=== PATIENT | male | born 1955 | race Caucasian/White ===

== ENCOUNTER 2016-10-14 13:15 | Outpatient (CLI) | payer OTHER | END 2016-10-14 13:16 | disposition home or self-care (01) | DX: R73.01 Impaired fasting glucose (principal); I20.8 Other forms of angina pectoris; I10 Essential (primary) hypertension; I25.10 Atherosclerotic heart disease of native coronary artery without angina pectoris ==

== ENCOUNTER 2017-09-07 10:00 | Outpatient (CLI) | payer OTHER | END 2017-09-07 10:01 | disposition home or self-care (01) | LOC: LAB.R 10:00 | PROVIDERS: ATTEND Internal Medicine Gastroenterology | DX: K51.90 Ulcerative colitis, unspecified, without complications (principal) | CPT/HCPCS: 83993 ==

== ENCOUNTER 2017-09-14 07:10 | Outpatient (CLI) | payer OTHER ==
[2017-09-14 07:31] LABS: BILIRUBIN,URINE NEGATIVE (NEGATIVE); GLUCOSE, URINE (UA) NEGATIVE (NEGATIVE); KETONES,URINE (UA) NEGATIVE (NEGATIVE); LEUKOCYTE ESTERASE, URINE NEGATIVE (NEGATIVE); NITRITE,URINE NEGATIVE (NEGATIVE); OCCULT BLOOD,URINE NEGATIVE (NEGATIVE); PROTEIN,URINE NEGATIVE (NEGATIVE); UROBILINOGEN,URINE 0.2 (NORMAL) E.U./dL (NORMAL)
[2017-09-14 07:32] LABS: HGB - HEMOGLOBIN 15.2 g/dL (14.0-18.0); MEAN CORPUSCULAR HEMOGLOBIN 34.9 pg (27.0-31.0); MEAN CORPUSCULAR HGB CONC 34.8 g/dL (32.0-36.0); MEAN CORPUSCULAR VOLUME 100.5 fL (80.0-94.0); MEAN PLATELET VOLUME 7.5 fL (7.4-11.4); RED BLOOD COUNT 4.34 10^6/uL (4.70-6.10); RED CELL DISTRIBUTION WIDTH 13.6 % (12.0-15.0); WHITE BLOOD COUNT 8.2 x10^3/uL (4.8-10.8)
[2017-09-14 07:34] LABS: CLARITY,URINE CLEAR (CLEAR)
[2017-09-14 08:05] LABS: ALBUMIN 4.8 g/dL (3.2-5.5); ALBUMIN/GLOBULIN RATIO 1.3 (1.0-2.2); ALKALINE PHOSPHATASE 91 IU/L (42-121); ALT ALANINE AMINOTRANSFERASE 26 IU/L (10-60); AST ASPARTATE AMINOTRANSFERASE 24 IU/L (10-42); BILIRUBIN,TOTAL 1.1 mg/dL (0.2-1.0); BUN - BLOOD UREA NITROGEN 19 mg/dL (6-20); CALCIUM 9.1 mg/dL (8.5-10.3); CARBON DIOXIDE - CO2 25 mmol/L (21-32); CHLORIDE 103 mmol/L (101-111); CHOL/HDL RATIO 2.5 (<5.0); CHOLESTEROL 145 mg/dL; CREATININE 0.9 mg/dL (0.6-1.2); GFR - MDRD 86 (>89); GLUCOSE 111 mg/dL (70-100); HDL CHOLESTEROL 58 mg/dL; LDL CHOLESTEROL,CALCULATED 72 mg/dL; LDL/HDL RATIO 1.2 (<3.6); SODIUM 136 mmol/L (135-145); TOTAL PROTEIN 8.4 g/dL (6.7-8.2); VLDL CHOLESTEROL 15 mg/dL
== END 2017-09-14 07:11 | disposition home or self-care (01) ==
LOC: LAB 07:10
PROVIDERS: ATTEND Internal Medicine
DX: E78.5 Hyperlipidemia, unspecified (principal); I10 Essential (primary) hypertension; Z12.5 Encounter for screening for malignant neoplasm of prostate; Z79.899 Other long term (current) drug therapy
CPT/HCPCS: 36415; 80053; 80061; 81003; 83721; 84153; 84443

== ENCOUNTER 2018-01-08 08:00 | Outpatient (CLI) | payer OTHER | END 2018-01-08 08:01 | disposition home or self-care (01) | LOC: LAB.R 08:00 | PROVIDERS: ATTEND Internal Medicine Gastroenterology | DX: K51.90 Ulcerative colitis, unspecified, without complications (principal) | CPT/HCPCS: 83993 ==

== ENCOUNTER 2018-03-25 19:28 | Outpatient (CLI) | payer OTHER ==
--- NOTE | 2018-03-25 21:37 | Ultrasound Report ---
Reason: THYROID CYST Procedure Date: 03/25/2018 Accession Number: [id number] / [id number] Procedure: US - Head or Neck Soft Tissue CPT Code: FULL RESULT: EXAM: THYROID ULTRASOUND EXAM DATE: 03/25/2018 07:32 PM. CLINICAL HISTORY: THYROID CYST. COMPARISON: None. TECHNIQUE: Real time sonographic imaging of the thyroid was performed by the molding machine operator helper. Multiple pharmacy sales representative static images were saved for review. FINDINGS: THYROID GLAND: Right Lobe: 5.3 x 1.5 x 1.6 cm, volume 6.5 cc. Normal background echotexture. Right Lobe Nodules: 1. Mid to upper pole smoothly marginated heterogeneous hypoechoic nodule 1.4 x 0.8 x 1.3 cm. Wider than tall. No microcalcification. Left Lobe: 5.5 x 0.9 x 1.8 cm, volume 4.4 cc. Normal background echotexture. Left Lobe Nodules: 1. Lower pole hypoechoic smoothly marginated nodule 0.6 x 0.4 x 0.6 cm. Wider than tall. No microcalcification. Isthmus: 0.2 cm AP. Isthmic Nodules: None. LYMPH NODES: No adenopathy demonstrated in the central or lateral compartment. OTHER: None. IMPRESSION: 1. 1.4 cm hypoechoic right lobe thyroid nodule. Consideration of ultrasound-guided FNA recommended. 2. Subcentimeter hypoechoic nodule in the left lobe. Ultrasound follow-up recommended in 6-24 months to assess stability. 3. Overall thyroid size is normal. No adenopathy. No additional mass. Management recommendations are based on 2015 [place] [employer] Management Guidelines for Adult Patients with Thyroid Nodules and Differentiated Thyroid Cancer. RADIA
== END 2018-03-25 19:29 | disposition home or self-care (01) ==
LOC: DI 19:28
PROVIDERS: ATTEND Internal Medicine
DX: E04.2 Nontoxic multinodular goiter (principal)
CPT/HCPCS: 76536

== ENCOUNTER 2019-08-07 08:00 | Outpatient (CLI) | payer BC, OTHER | END 2019-08-07 23:59 | disposition home or self-care (01) | LOC: LAB.R 08:00 | PROVIDERS: ATTEND Internal Medicine Gastroenterology | DX: K51.90 Ulcerative colitis, unspecified, without complications (principal) | CPT/HCPCS: 83993 ==

== ENCOUNTER 2019-09-11 21:32 | Outpatient (CLI) | payer BC ==
[2019-09-11 22:02] LABS: BASOPHILS % (AUTO) 0.3 %; EOSINOPHILS % (AUTO) 0.3 %; HGB - HEMOGLOBIN 15.8 g/dL (14.0-18.0); LYMPHOCYTES # (AUTO) 1.2 10^3/uL (1.5-3.5); LYMPHOCYTES % (AUTO) 10.4 %; MEAN CORPUSCULAR HEMOGLOBIN 36.9 pg (27.0-31.0); MEAN CORPUSCULAR HGB CONC 35.3 g/dL (32.0-36.0); MEAN CORPUSCULAR VOLUME 104.7 fL (80.0-94.0); MEAN PLATELET VOLUME 8.7 fL (7.4-11.4); MONOCYTES % (AUTO) 7.9 %; NEUTROPHILS # (AUTO) 9.6 10^3/uL (1.5-6.6); NEUTROPHILS % (AUTO) 80.3 %; PLT - PLATELET COUNT 262 10^3/uL (130-450); RED BLOOD COUNT 4.28 10^6/uL (4.70-6.10); RED CELL DISTRIBUTION WIDTH 12.9 % (12.0-15.0)
[2019-09-11 22:03] LABS: ALBUMIN 3.9 g/dL (3.2-5.5); ALBUMIN/GLOBULIN RATIO 1.2 (1.0-2.2); BILIRUBIN,TOTAL 1.5 mg/dL (0.2-1.0); CALCIUM 8.8 mg/dL (8.5-10.3); TOTAL PROTEIN 7.2 g/dL (6.7-8.2)
== END 2019-09-11 21:33 | disposition home or self-care (01) ==
LOC: LAB 21:32
PROVIDERS: ATTEND Internal Medicine Gastroenterology
DX: K51.90 Ulcerative colitis, unspecified, without complications (principal)
CPT/HCPCS: 36415; 80053; 81335; 81599; 85025

== ENCOUNTER 2019-12-23 12:25 | Outpatient (CLI) | payer BC | END 2019-12-23 12:26 | disposition short-term general hospital (02) | LOC: EMS 12:25 | PROVIDERS: ATTEND Surgery | DX: R07.89 Other chest pain (principal) | CPT/HCPCS: A0425; A0426 ==

== ENCOUNTER 2020-03-04 18:48 | Emergency (ER) | payer BC ==
--- NOTE | 2020-03-04 19:28 | ED Physician Documentation ---
History of Present Illness - Stated complaint Stated Complaint: MALE - Chief complaint Chief Complaint: Abd Pain - History obtained from History obtained from: Patient - Additonal information Additional information: 65 Y/O M with a hx of ulcerative colitis on chronic budesonide recently taking off presents with abd pain, vomiting, nausea and loose stools, denies fevers, no hx of abd surgery. Prior DE with stent placement. denies fevers. also taking entyvio. Review of Systems Constitutional: reports: Reviewed and negative Eyes: reports: Reviewed and negative Ears: reports: Reviewed and negative Nose: reports: Reviewed and negative Throat: reports: Reviewed and negative Cardiac: reports: Reviewed and negative Respiratory: reports: Reviewed and negative GI: reports: Abdominal Pain, Nausea, Vomiting, Diarrhea : reports: Reviewed and negative Skin: reports: Reviewed and negative Musculoskeletal: reports: Reviewed and negative Neurologic: reports: Reviewed and negative Psychiatric: reports: Reviewed and negative Endocrine: reports: Reviewed and negative Immunocompromised: reports: Reviewed and negative PD PAST MEDICAL HISTORY - Past Medical History Past Medical History: Yes Cardiovascular: Hypertension, High cholesterol, Coronary artery disease, [place] Respiratory: None Neuro: Head injury Endocrine/Autoimmune: None GI: Ulcerative colitis : Benign prostate hypertrophy HEENT: None Psych: None Musculoskeletal: None Derm: None - Past Surgical History Past Surgical History: Yes Cardiovascular: Coronary stent - Present Medications Home Medications: Ambulatory Orders Medication Instructions Recorded Confirmed Amox/Clav 875/125 [Augmentin] 1 each PO Q12H 10 Days #20 tablet 03/04/20 Ondansetron Odt [Zofran Odt] 4 mg TL Q6H PRN #10 tablet 03/04/20 - Allergies Allergies/Adverse Reactions: Allergies Allergy/AdvReac Type Severity Reaction Status Date / Time No Known Drug Allergies Allergy Verified 03/04/20 19:09 - Social History Does the pt smoke?: No Smoking Status: Never smoker Does the pt drink ETOH?: Yes Does the pt have substance abuse?: No - Immunizations Immunizations are current?: Yes - POLST Patient has POLST: No PD ED PE NORMAL - Vitals Vital signs reviewed: Yes - General General: Alert and oriented X 3, No acute distress, Well developed/nourished - HEENT HEENT: Atraumatic, PERRL, Moist mucous membranes, Pharynx benign - Neck Neck: Supple, no meningeal sign, No adenopathy - Cardiac Cardiac: RRR, No murmur, Strong equal pulses - Respiratory Respiratory: No respiratory distress, Clear bilaterally - Abdomen Abdomen: Normal bowel sounds, Soft, No organomegaly, Other (diffusely tender. no midline abd pulsatile mass.) - Male Male : Deferred - Rectal Rectal: Deferred - Back Back: No spinal TTP - Derm Derm: Normal color, Warm and dry, No rash - Extremities Extremities: No deformity - Neuro Neuro: Alert and oriented X 3, optical lathe operator 2-12 intact, No motor deficit, No sensory deficit, Normal speech - Psych Psych: Normal mood, Normal affect Results - Vitals Vitals: Vital Signs - 24 hr 03/04/20 03/04/20 03/04/20 18:50 19:55 20:00 Temperature 36.6 C Heart Rate 54 L 73 Respiratory 16 25 H 17 Rate Blood Pressure 102/64 119/87 H O2 Saturation 96 95 03/04/20 03/04/20 20:30 20:38 Temperature Heart Rate 71 69 Respiratory 17 16 Rate Blood Pressure 128/90 H O2 Saturation 98 95 Oxygen O2 Source Room air - Labs Labs: Laboratory Tests 03/04/20 03/04/20 03/04/20 19:30 19:30 19:30 WBC 5.8 RBC 4.23 L Hgb 15.5 Hct 43.1 MCV 101.9 H MCH 36.6 H MCHC 36.0 RDW 13.0 Plt Count 222 MPV 9.0 Neut # (Auto) 3.9 Lymph # (Auto) 1.1 L [place] # (Auto) 0.6 Eos # (Auto) 0.2 Baso # (Auto) 0.0 Absolute Nucleated RBC 0.00 Nucleated RBC % 0.0 PT INR APTT Sodium 135 Potassium 3.7 Chloride 101 Carbon Dioxide 24 Anion Gap 10.0 BUN 8 Creatinine 1.1 Estimated GFR (MDRD) 68 L Glucose 115 H Lactic Acid Calcium 9.5 Magnesium 1.7 Total Bilirubin 1.5 H AST 75 H ALT 72 H Alkaline Phosphatase 139 H Total Creatine Kinase 50 Troponin I High Sens 6.4 Total Protein 7.3 Albumin 3.9 Globulin 3.4 Albumin/Globulin Ratio 1.1 Lipase 40 Urine Color Urine Clarity Urine pH Ur Specific [place] Urine Protein Urine Glucose (UA) Urine Ketones Urine Occult Blood Urine Nitrite Urine Bilirubin Urine Urobilinogen Ur Leukocyte Esterase Ur Microscopic Review Urine Culture Comments 03/04/20 03/04/20 03/04/20 19:45 19:54 21:10 WBC RBC Hgb Hct MCV MCH MCHC RDW Plt Count MPV Neut # (Auto) Lymph # (Auto) [place] # (Auto) Eos # (Auto) Baso # (Auto) Absolute Nucleated RBC Nucleated RBC % PT 12.5 INR 1.1 APTT 27.3 Sodium Potassium Chloride Carbon Dioxide Anion Gap BUN Creatinine Estimated GFR (MDRD) Glucose Lactic Acid 0.9 Calcium Magnesium Total Bilirubin AST ALT Alkaline Phosphatase Total Creatine Kinase Troponin I High Sens Total Protein Albumin Globulin Albumin/Globulin Ratio Lipase Urine Color YELLOW Urine Clarity CLEAR Urine pH 6.0 Ur Specific [place] <=1.005 Urine Protein NEGATIVE Urine Glucose (UA) NEGATIVE Urine Ketones NEGATIVE Urine Occult Blood NEGATIVE Urine Nitrite NEGATIVE Urine Bilirubin NEGATIVE Urine Urobilinogen 0.2 (NORMAL) Ur Leukocyte Esterase NEGATIVE Ur Microscopic Review NOT INDICATED Urine Culture Comments NOT INDICATED PD MEDICAL DECISION MAKING - ED course Complexity details: reviewed results, re-evaluated patient, considered differential (diverticulitis, ulcerative colitis flare, dehydration. ), d/w patient, d/w family Departure - Departure Disposition: 01 Home, Self Care Clinical Impression: Diverticulitis Ulcerative colitis Qualifiers: Ulcerative colitis location: unspecified ulcerative colitis location Digestive disease complication type: unspecified complication Qualified Code(s): K51.919 - Ulcerative colitis, unspecified with unspecified complications Condition: Stable Instructions: ED Diverticulitis Follow-Up: Terri Olivas MD [Primary Care Provider] - Tomorrow Prescriptions: Amox/Clav 875/125 [Augmentin] 1 each PO Q12H 10 Days #20 tablet Ondansetron Odt [Zofran Odt] 4 mg TL Q6H PRN #10 tablet PRN Reason: Nausea / Vomiting Comments: Take antibiotics as directed. Please call your primary care provider tomorrow to schedule follow-up. Please return for worsening pain fevers or any concerns.
[2020-03-04] MEDS ORDERED: ONDANSETRON 4 MG/2 ML VIAL IVP STA (19:39)
[2020-03-04] MEDS ORDERED: SODIUM CHLORIDE 0.9% 1,000 ML IV STA (19:39)
[2020-03-04 19:49] LABS: BASOPHILS % (AUTO) 0.7 %; EOSINOPHILS # (AUTO) 0.2 10^3/uL (0.0-0.7); EOSINOPHILS % (AUTO) 2.6 %; HGB - HEMOGLOBIN 15.5 g/dL (14.0-18.0); LYMPHOCYTES # (AUTO) 1.1 10^3/uL (1.5-3.5); LYMPHOCYTES % (AUTO) 18.3 %; MEAN CORPUSCULAR HEMOGLOBIN 36.6 pg (27.0-31.0); MEAN CORPUSCULAR VOLUME 101.9 fL (80.0-94.0); MONOCYTES # (AUTO) 0.6 10^3/uL (0.0-1.0); MONOCYTES % (AUTO) 10.7 %; NEUTROPHILS # (AUTO) 3.9 10^3/uL (1.5-6.6); NEUTROPHILS % (AUTO) 67.5 %; PLT - PLATELET COUNT 222 10^3/uL (130-450); RED BLOOD COUNT 4.23 10^6/uL (4.70-6.10); WHITE BLOOD COUNT 5.8 x10^3/uL (4.8-10.8)
[2020-03-04 20:02] LABS: ALBUMIN 3.9 g/dL (3.2-5.5); ALBUMIN/GLOBULIN RATIO 1.1 (1.0-2.2); BILIRUBIN,TOTAL 1.5 mg/dL (0.2-1.0); CALCIUM 9.5 mg/dL (8.5-10.3); CREATININE 1.1 mg/dL (0.6-1.2); MAGNESIUM 1.7 mg/dL (1.7-2.8); TOTAL PROTEIN 7.3 g/dL (6.7-8.2)
[2020-03-04 20:03] LABS: INR 1.1 (0.8-1.2); PT - PROTHROMBIN TIME 12.5 secs (9.9-12.6)
[2020-03-04 20:11] LABS: PARTIAL THROMBOPLASTIN TIME 27.3 secs (24.9-33.3)
[2020-03-04] MEDS ORDERED: IOVERSOL 320 100 ML VIAL IVP ONE ×2 (20:15→20:31)
[2020-03-04 21:29] LABS: BILIRUBIN,URINE NEGATIVE (NEGATIVE); GLUCOSE, URINE (UA) NEGATIVE (NEGATIVE); KETONES,URINE (UA) NEGATIVE (NEGATIVE); LEUKOCYTE ESTERASE, URINE NEGATIVE (NEGATIVE); NITRITE,URINE NEGATIVE (NEGATIVE); OCCULT BLOOD,URINE NEGATIVE (NEGATIVE); PROTEIN,URINE NEGATIVE (NEGATIVE); UROBILINOGEN,URINE 0.2 (NORMAL) E.U./dL (NORMAL)
[2020-03-04 21:30] LABS: CLARITY,URINE CLEAR (CLEAR)
--- NOTE | 2020-03-04 21:42 | CT Report ---
PROCEDURE: Abdomen/Pelvis W INDICATIONS: abd pain CONTRAST: IV CONTRAST: Optiray 320 ml: 100 PO CONTRAST: *NO PO CONTRAST TECHNIQUE: After the administration of 100 cc Optiray 320 IV contrast, 5 mm thick sections acquired from the di aphragms to the symphysis. 5 mm thick coronal and sagittal reformats were acquired. For radiation d ose reduction, the following was used: automated exposure control, adjustment of mA and/or kV accord ing to patient size. COMPARISON: None. FINDINGS: Image quality: Excellent. ABDOMEN: Lung bases: Lung bases are clear. Heart size is normal. Solid organs: Liver and spleen are normal in size and enhancement. Gallbladder is within normal singleton its. Biliary system is non dilated. Pancreas enhances normally. No adrenal nodules. Kidneys demon strate normal size and enhancement, without hydronephrosis. Peritoneum and bowel: Stomach and small bowel loops demonstrate normal wall thickness and caliber. N ormal appendix is present. Numerous descending and sigmoid colon diverticula. Subtle pericolonic infl ammatory changes in the left lower quadrant surrounding proximal sigmoid colon. No extraluminal gas. No free fluid or air. Nodes and vessels: No retroperitoneal or mesenteric adenopathy by size criteria. Aorta and inferior vena cava are normal in size. Miscellaneous: No ventral hernias. PELVIS: Genitourinary: Bladder wall thickness is normal. Mild prostatomegaly. Miscellaneous: Small fat-containing left inguinal hernia. Bones: No suspicious bony lesions. No vertebral body compression fractures. Degenerative facet salvatore nges in the lumbar spine. IMPRESSION: 1. Descending and sigmoid diverticulosis with mild acute diverticulitis of the proximal sigmoid. 2. No evidence of abscess or perforation. 3. Fat-containing left inguinal hernia. Reviewed by: Cathie العراقي MD on 03/04/2020 9:41 PM PDT Approved by: Cathie العراقي MD on 03/04/2020 9:41 PM PDT Station ID: [id number]
[2020-03-04] MEDS ORDERED: AMOX/CLAV 875 MG/125 MG TABLET PO STA (22:03)
[2020-03-04 22:14] VITALS: BP 113/78
== END 2020-03-04 22:20 | disposition home or self-care (01) ==
LOC: ED 18:48
DX: K57.32 Diverticulitis of large intestine without perforation or abscess without bleeding (principal); K51.919 Ulcerative colitis, unspecified with unspecified complications; K40.90 Unilateral inguinal hernia, without obstruction or gangrene, not specified as recurrent; I10 Essential (primary) hypertension; I25.10 Atherosclerotic heart disease of native coronary artery without angina pectoris; I25.2 Old myocardial infarction; Z95.5 Presence of coronary angioplasty implant and graft
CPT/HCPCS: 36415; 74177; 80053; 81003; 82550; 83605; 83690; 83735; 84484; 85025; 85610; 85730; 93005; 96361; 96374; 99283; 99284; A9270; Q9967; 81001; 87086

== ENCOUNTER 2020-03-16 18:42 | Inpatient (IN) | payer BC ==
[2020-03-16 19:17] LABS: BASOPHILS # (AUTO) 0.1 10^3/uL (0.0-0.1); BASOPHILS % (AUTO) 0.7 %; EOSINOPHILS # (AUTO) 0.1 10^3/uL (0.0-0.7); EOSINOPHILS % (AUTO) 0.7 %; HGB - HEMOGLOBIN 14.5 g/dL (14.0-18.0); LYMPHOCYTES # (AUTO) 1.5 10^3/uL (1.5-3.5); LYMPHOCYTES % (AUTO) 11.4 %; MEAN CORPUSCULAR HEMOGLOBIN 36.6 pg (27.0-31.0); MEAN CORPUSCULAR HGB CONC 34.9 g/dL (32.0-36.0); MEAN CORPUSCULAR VOLUME 105.1 fL (80.0-94.0); MEAN PLATELET VOLUME 8.9 fL (7.4-11.4); MONOCYTES # (AUTO) 1.4 10^3/uL (0.0-1.0); MONOCYTES % (AUTO) 10.3 %; NEUTROPHILS # (AUTO) 10.3 10^3/uL (1.5-6.6); NEUTROPHILS % (AUTO) 76.4 %; PLT - PLATELET COUNT 419 10^3/uL (130-450); RED BLOOD COUNT 3.96 10^6/uL (4.70-6.10); RED CELL DISTRIBUTION WIDTH 12.8 % (12.0-15.0); WHITE BLOOD COUNT 13.4 x10^3/uL (4.8-10.8)
[2020-03-16 19:20] LABS: BILIRUBIN,URINE NEGATIVE (NEGATIVE); GLUCOSE, URINE (UA) NEGATIVE (NEGATIVE); KETONES,URINE (UA) NEGATIVE (NEGATIVE); LEUKOCYTE ESTERASE, URINE NEGATIVE (NEGATIVE); NITRITE,URINE NEGATIVE (NEGATIVE); OCCULT BLOOD,URINE NEGATIVE (NEGATIVE); PH,URINE 5.5 PH (5.0-7.5); PROTEIN,URINE NEGATIVE (NEGATIVE); UROBILINOGEN,URINE 0.2 (NORMAL) E.U./dL (NORMAL)
[2020-03-16 19:20] LABS: ALBUMIN 3.6 g/dL (3.2-5.5); ALBUMIN/GLOBULIN RATIO 1.1 (1.0-2.2); BILIRUBIN,TOTAL 0.9 mg/dL (0.2-1.0); CALCIUM 9.1 mg/dL (8.5-10.3); CREATININE 0.8 mg/dL (0.6-1.2)
[2020-03-16 19:22] LABS: CLARITY,URINE CLEAR (CLEAR)
--- NOTE | 2020-03-16 19:25 | ED Physician Documentation ---
History of Present Illness - Stated complaint Stated Complaint: ABD PX/N/V - Chief complaint Chief Complaint: Abd Pain - History obtained from History obtained from: Patient (the patient is a 65) - Additonal information Additional information: The patient is a 65 Y/O M with a hx of ulcerative colitis and diverticulitis, recently completed augmentin for acute diverticulitis, having continued pain, no fevers, vomiting and loose stools daily. was seen by his pcp today and sent in for evaluation. denies any bloody diarrhea or any hx of c diff. Review of Systems Constitutional: reports: Reviewed and negative Eyes: reports: Reviewed and negative Ears: reports: Reviewed and negative Nose: reports: Reviewed and negative Throat: reports: Reviewed and negative Cardiac: reports: Reviewed and negative Respiratory: reports: Reviewed and negative GI: reports: Abdominal Pain, Nausea, Vomiting, Diarrhea : reports: Reviewed and negative Skin: reports: Reviewed and negative Musculoskeletal: reports: Reviewed and negative Neurologic: reports: Reviewed and negative Psychiatric: reports: Reviewed and negative Endocrine: reports: Reviewed and negative Immunocompromised: reports: Reviewed and negative PD PAST MEDICAL HISTORY - Past Medical History Past Medical History: Yes Cardiovascular: Hypertension, High cholesterol, Coronary artery disease, [place] Respiratory: None Neuro: Head injury Endocrine/Autoimmune: None GI: Diverticulitis, Ulcerative colitis : Benign prostate hypertrophy HEENT: None Psych: None Musculoskeletal: None Derm: None - Past Surgical History Past Surgical History: Yes Cardiovascular: Coronary stent - Present Medications Home Medications: Ambulatory Orders Medication Instructions Recorded Confirmed Amox/Clav 875/125 [Augmentin] 1 each PO Q12H 10 Days #20 tablet 03/04/20 Ondansetron Odt [Zofran Odt] 4 mg TL Q6H PRN #10 tablet 03/04/20 - Allergies Allergies/Adverse Reactions: Allergies Allergy/AdvReac Type Severity Reaction Status Date / Time No Known Drug Allergies Allergy Verified 03/16/20 18:48 - Social History Does the pt smoke?: No Smoking Status: Never smoker Does the pt drink ETOH?: Yes Does the pt have substance abuse?: No - Immunizations Immunizations are current?: Yes - POLST Patient has POLST: No PD ED PE NORMAL - Vitals Vital signs reviewed: Yes - General General: Alert and oriented X 3, No acute distress, Well developed/nourished - HEENT HEENT: Atraumatic, PERRL - Neck Neck: Supple, no meningeal sign - Cardiac Cardiac: RRR, No murmur, Strong equal pulses - Respiratory Respiratory: No respiratory distress, Clear bilaterally - Abdomen Abdomen: Normal bowel sounds, Soft, Other (No midline abdominal pulsatile mass. Diffuse tenderness in the suprapubic region. Hyperactive bowel sounds.) - Derm Derm: Warm and dry - Extremities Extremities: No deformity - Neuro Neuro: Alert and oriented X 3 - Psych Psych: Normal mood, Normal affect Results - Vitals Vitals: Vital Signs - 24 hr 03/16/20 03/16/20 18:48 19:32 Temperature 36.8 C Heart Rate 72 70 Respiratory 16 16 Rate Blood Pressure 125/78 124/77 O2 Saturation 98 100 Oxygen O2 Source Room air - Labs Labs: Laboratory Tests 03/16/20 03/16/20 03/16/20 18:55 19:00 19:00 WBC 13.4 H RBC 3.96 L Hgb 14.5 Hct 41.6 L MCV 105.1 H MCH 36.6 H MCHC 34.9 RDW 12.8 Plt Count 419 MPV 8.9 Neut # (Auto) 10.3 H Lymph # (Auto) 1.5 [place] # (Auto) 1.4 H Eos # (Auto) 0.1 Baso # (Auto) 0.1 Absolute Nucleated RBC 0.00 Nucleated RBC % 0.0 Sodium 135 Potassium 4.0 Chloride 102 Carbon Dioxide 23 Anion Gap 10.0 BUN 7 Creatinine 0.8 Estimated GFR (MDRD) 98 Glucose 112 H Lactic Acid Calcium 9.1 Total Bilirubin 0.9 AST 38 ALT 33 Alkaline Phosphatase 156 H Total Protein 7.0 Albumin 3.6 Globulin 3.4 Albumin/Globulin Ratio 1.1 Lipase 36 Urine Color YELLOW Urine Clarity CLEAR Urine pH 5.5 Ur Specific [place] 1.025 Urine Protein NEGATIVE Urine Glucose (UA) NEGATIVE Urine Ketones NEGATIVE Urine Occult Blood NEGATIVE Urine Nitrite NEGATIVE Urine Bilirubin NEGATIVE Urine Urobilinogen 0.2 (NORMAL) Ur Leukocyte Esterase NEGATIVE Ur Microscopic Review NOT INDICATED Urine Culture Comments NOT INDICATED 03/16/20 19:18 WBC RBC Hgb Hct MCV MCH MCHC RDW Plt Count MPV Neut # (Auto) Lymph # (Auto) [place] # (Auto) Eos # (Auto) Baso # (Auto) Absolute Nucleated RBC Nucleated RBC % Sodium Potassium Chloride Carbon Dioxide Anion Gap BUN Creatinine Estimated GFR (MDRD) Glucose Lactic Acid 1.1 Calcium Total Bilirubin AST ALT Alkaline Phosphatase Total Protein Albumin Globulin Albumin/Globulin Ratio Lipase Urine Color Urine Clarity Urine pH Ur Specific [place] Urine Protein Urine Glucose (UA) Urine Ketones Urine Occult Blood Urine Nitrite Urine Bilirubin Urine Urobilinogen Ur Leukocyte Esterase Ur Microscopic Review Urine Culture Comments PD MEDICAL DECISION MAKING - ED course Complexity details: reviewed old records, reviewed results, re-evaluated patient, considered differential (Diverticulitis, abscess, perforation), d/w patient, d/w science consultant, other (diverticulitis) ED course: History is concerning for diverticulitis possible perforation and possible abscess.CT scan shows worsening diverticulitis patient's failed outpatient treatment with Augmentin he did receive IV Rocephin and IV Flagyl in the emergency department hospitalist was consulted for admission patient will be admitted for IV antibiotics and observation. - Consults Consults: Discussed case with (dr. ross. will accept.) Departure - Departure Disposition: ED Place in Observation Clinical Impression: Diverticulitis of gastrointestinal tract, Diverticulitis Condition: Stable Discharge Date/Time: 03/16/20 21:36
[2020-03-16] MEDS ORDERED: SODIUM CHLORIDE 0.9% 1,000 ML IV STA (19:30)
[2020-03-16] MEDS ORDERED: ONDANSETRON 4 MG/2 ML VIAL IVP STA (19:30)
[2020-03-16] MEDS ORDERED: MORPHINE 2 MG/ML CARPUJECT IVP STA (19:30)
[2020-03-16] MEDS ORDERED: cefTRIAXone 1 GM in SODIUM CHLORIDE 0.9% MINIBAG 100 ML IV STA (19:32)
[2020-03-16] MEDS ORDERED: metroNIDAZOLE 500 MG/100 ML 500 MG/100 ML BAG IV ONE (19:33)
[2020-03-16] MEDS ORDERED: IOVERSOL 320 100 ML VIAL IVP ONE ×2 (19:43→19:59)
--- NOTE | 2020-03-16 20:12 | CT Report ---
PROCEDURE: Abdomen/Pelvis W INDICATIONS: abd pain, diverticulitis, uc CONTRAST: IV CONTRAST: Optiray 320 ml: 100 PO CONTRAST: *NO PO CONTRAST TECHNIQUE: After the administration of intravenous contrast, 5 mm thick sections acquired from the diaphragms to the symphysis. 5 mm thick coronal and sagittal reformats were acquired. For radiation dose reducti on, the following was used: automated exposure control, adjustment of mA and/or kV according to beth ent size. COMPARISON: CT abdomen pelvis 03/04/2020 FINDINGS: Image quality: Excellent. ABDOMEN: Lung bases: Lung bases are clear. Heart size is normal. Solid organs: Liver is nearly prominent with steatosis. The spleen is normal in size and enhancement . Gallbladder is unremarkable Biliary system is non dilated. Pancreas enhances normally. No adren al nodules. Kidneys demonstrate normal size and enhancement, without hydronephrosis. Peritoneum and bowel: Bowel loops are nonobstructive. There is a thickened appearance of the distal descending colon extending to the sigmoid with areas of intimal surrounding inflammatory change. This appears minimally more prominent when compared to prior exam. No abscess. No free fluid or free air. In addition, in the interval since the prior exam, there is a thickened appearance of more proximal portions of the descending colon extending to the transverse and ascending colon. Minimal stranding i s noted surrounding the ascending and transverse colon most proximally in the cecal region. This is n ew compared to prior exam. Nodes and vessels: No retroperitoneal or mesenteric adenopathy by size criteria. Aorta and inferior vena cava are normal in size. Miscellaneous: No ventral hernias. PELVIS: Genitourinary: Bladder wall thickness is normal. Miscellaneous: No inguinal hernias or adenopathy. Bones: No suspicious bony lesions. No vertebral body compression fractures. IMPRESSION: 1. Persistent distal descending and sigmoid colitis secondary to diverticulitis, appearing slightly w orse compared to prior exam. No diverticular abscess. No free fluid or free air. 2. In addition, there has been interval thickening with minimal surrounding inflammatory change withi n portions of the remaining left, transverse and right colon with particular pericolonic stranding id entified in the right colon. Overall appearance is suggestive of progressive colitis. Reviewed by: Roxann Sousa MD on 03/16/2020 8:11 PM PDT Approved by: Roxann Sousa MD on 03/16/2020 8:11 PM PDT Station ID: [id number]
[2020-03-16] MEDS ORDERED: cefTRIAXone 1 GM VIAL ONE (20:26)
--- NOTE | 2020-03-16 20:55 | HISTORY & PHYSICAL EXAMINATION ---
Chief Complaint - Chief Complaint Chief Complaint: worsening abdominal pain History of Present Illness - Admitted From Admitted From:: [facility] ED - History Obtained From Records Reviewed: Yes History obtained from: Patient - History of Present Illness HPI Comment/Other: Patient is a 65-year-old male with history of ulcerative colitis who is currently on Antyvia. He presented to the ED today with worsening abdominal pain, nausea vomiting and diarrhea. He was diagnosed with diverticulitis 10 days ago and placed on Augmentin which he has taken to completion. However with worsening symptoms today he called his primary care physician and was advised to come to the emergency room. He has been experiencing 3-4 episodes of diarrhea daily and has been vomiting on average 2 times daily. He denied chest pain dyspnea, fever or chills. He has some dyspnea on exertion. In the ED work-up included a CT of the abdomen pelvis which showed worsening diverticulitis. He also had a WBC of 13.5. As a result he was presented for admission for further treatment. History - Past Medical History Cardiovascular: reports: Hypertension, High cholesterol, Coronary artery disease, [place] Respiratory: reports: None Neuro: reports: Head injury Endocrine/Autoimmune: reports: None GI: reports: Diverticulitis, Ulcerative colitis : reports: Benign prostate hypertrophy HEENT: reports: None Psych: reports: None Musculoskeletal: reports: None Derm: reports: None MRSA Hx?: No - Past Surgical History Cardiovascular: reports: Coronary stent - Family & Social History Family History: Father: [place] ( at age 63) Living arrangement: At home Social History Notes: The patient does not use tobacco products. He drinks alcohol occasionally. No illicit drug use. 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. - POLST Patient has POLST: No POLST Status: Full Code Meds/Allgy - Home Medications Home Medications: Ambulatory Orders Medication Instructions Recorded Confirmed Amox/Clav 875/125 [Augmentin] 1 each PO Q12H 10 Days #20 tablet 03/04/20 Ondansetron Odt [Zofran Odt] 4 mg TL Q6H PRN #10 tablet 03/04/20 - Allergies Allergies/Adverse Reactions: Allergies Allergy/AdvReac Type Severity Reaction Status Date / Time No Known Drug Allergies Allergy Verified 03/16/20 18:48 Review of Systems - Constitutional Constitutional: denies: Fatigue, Fever, Chills - Eyes Eyes: denies: Pain - Ears, Nose & Throat Ears, Nose & Throat: denies: Ear pain - Cardiovascular Cariovascular: denies: Irregular heart rate, Palpitations, Chest pain, Edema - Gastrointestinal Gastrointestinal: reports: Abdominal pain, Diarrhea, Nausea, Vomiting. denies: Abdominal distention - Genitourinary Genitourinary: denies: Dysuria, Frequency, Urgency, Hematuria - Musculoskeletal Musculoskeletal: denies: Muscle pain, Back pain, Muscle aches, Stiffness - Integumentary Integumentary: denies: Rash, Pruritis, Lesions - Neurological Neurological: denies: General weakness, Focal weakness, Headache, Dizziness - Psychiatric Psychiatric: denies: Depression, Anxiety - Endocrine Endocrine: denies: Polyuria, Polydypsia - Hematologic/Lymphatic Hematologic/Lymphatic: denies: Anemia, Bruising, Petechiae Prior Level of Functionality: Patient is independent of activities of daily living Exam - Vital Signs Vital Signs: Vital Signs x48h Temp Pulse Resp BP Pulse Ox 03/16/20 19:32 70 16 124/77 100 03/16/20 18:48 36.8 C 72 16 125/78 98 - Physical Exam General Appearance: positive: Alert, Mild distress, Moderate distress Eyes Bilateral: positive: PERRL, EOMI ENT: positive: No signs of dehydration Neck: positive: No JVD, Trachea midline Respiratory: positive: Chest non-tender, No respiratory distress, Breath sounds nml. negative: Wheezes, Rales, Rhonchi Cardiovascular: positive: Regular rate & rhythm, No murmur Abdomen: positive: Non-tender, Nml bowel sounds, No distention. negative: Guarding, Rebound Back: positive: Nml inspection Skin: positive: Color nml, No rash, Warm, Dry Extremities: positive: Non-tender, Full ROM, Nml appearance, No pedal edema Neurologic/Psychiatric: positive: Oriented x3, Mood/affect nml Conclusion/Plan - Problem List (1) Diverticulitis Conclusion/Plan: Failed outpatient therapy with Augmentin for 10 days. Patient is currently on Cipro and Flagyl IV will continue. Clear liquid diet. Pain management PRN. (2) Ulcerative colitis Conclusion/Plan: Patient started Antyvia 2 months ago. He is currently scheduled to have an infusion every 8 weeks. He receives it at [facility]. His GI physician is Dr. Andrea Nicholson Qualifiers: Ulcerative colitis location: unspecified ulcerative colitis location Digestive disease complication type: unspecified complication Qualified Code(s): K51.919 - Ulcerative colitis, unspecified with unspecified complications - Lab Results Fish Bones: 03/16/20 19:00 03/16/20 19:00 Core Measures - Anticipated LOS I expect patient to be DC'd or transferred within 96 hours.: Yes - DVT/VTE - Prophylaxis VTE/DVT Device ordered at admit?: Yes VTE/DVT Prophylaxis med ordered at admit?: Yes
[2020-03-16] MEDS: CIPROFLOXACIN 400 MG/200 ML 400 MG/200 ML BAG IV SCH (21:57)
[2020-03-16] MEDS: SODIUM CHLORIDE 0.9% 1,000 ML IV SCH (21:57)
[2020-03-16] MEDS: SODIUM CHLORIDE FLUSH 0.9% 10 ML SYRINGE IVP PRN (21:58)
[2020-03-16] MEDS: metroNIDAZOLE 500 MG/100 ML 500 MG/100 ML BAG IV SCH (22:05)
[2020-03-16] MEDS: SODIUM CHLORIDE FLUSH 0.9% 10 ML SYRINGE IVP SCH (23:37)
[2020-03-16] MEDS: ONDANSETRON 4 MG/2 ML VIAL IVP PRN (23:38)
[2020-03-17] MEDS: metroNIDAZOLE 500 MG/100 ML 500 MG/100 ML BAG IV SCH ×3 (04:24→22:02)
[2020-03-17 04:41] LABS: BASOPHILS # (AUTO) 0.1 10^3/uL (0.0-0.1); BASOPHILS % (AUTO) 0.5 %; EOSINOPHILS # (AUTO) 0.1 10^3/uL (0.0-0.7); EOSINOPHILS % (AUTO) 0.7 %; HGB - HEMOGLOBIN 12.1 g/dL (14.0-18.0); LYMPHOCYTES % (AUTO) 16.3 %; MEAN CORPUSCULAR HEMOGLOBIN 36.6 pg (27.0-31.0); MEAN CORPUSCULAR VOLUME 104.5 fL (80.0-94.0); MEAN PLATELET VOLUME 8.7 fL (7.4-11.4); MONOCYTES # (AUTO) 1.7 10^3/uL (0.0-1.0); MONOCYTES % (AUTO) 13.8 %; NEUTROPHILS # (AUTO) 8.2 10^3/uL (1.5-6.6); NEUTROPHILS % (AUTO) 68.2 %; PLT - PLATELET COUNT 322 10^3/uL (130-450); RED BLOOD COUNT 3.31 10^6/uL (4.70-6.10); RED CELL DISTRIBUTION WIDTH 12.8 % (12.0-15.0)
[2020-03-17 04:51] LABS: CALCIUM 8.3 mg/dL (8.5-10.3); CREATININE 0.8 mg/dL (0.6-1.2)
[2020-03-17 05:07] LABS: DIFFERENTIAL COMMENT MANUAL=AUTO DIFF; PLATELET ESTIMATE, MANUAL NORMAL (130-450,000) (NORMAL); RBC MORPHOLOGY (MULTIPLE) NORMAL APPEARANCE (NORMAL)
[2020-03-17] MEDS: PANTOPRAZOLE 40 MG VIAL IVP SCH (06:03)
[2020-03-17] MEDS: SODIUM CHLORIDE 0.9% 1,000 ML IV SCH ×2 (07:03→16:47)
[2020-03-17] MEDS: CIPROFLOXACIN 400 MG/200 ML 400 MG/200 ML BAG IV SCH ×2 (08:19→20:42)
[2020-03-17] MEDS: ENOXAPARIN 40 MG/0.4 ML SYRINGE SUBQ SCH (08:20)
[2020-03-17] MEDS: SODIUM CHLORIDE FLUSH 0.9% 10 ML SYRINGE IVP SCH ×2 (08:20→16:47)
[2020-03-17] MEDS: ONDANSETRON 4 MG/2 ML VIAL IVP PRN ×2 (08:30→21:32)
[2020-03-17] MEDS: VANCOMYCIN 125 MG CAPSULE PO SCH ×4 (09:08→21:32)
[2020-03-17] MEDS: HYDROmorphone 0.5 MG/0.5 ML SYRINGE IVP PRN ×2 (13:30→19:34)
--- NOTE | 2020-03-17 16:05 | PROVIDER PROGRESS NOTE ---
Assessment/Plan - Problem List (1) Diverticulitis Assessment/Plan: 99,Patient reported he feel better by abdominal pain. WBC is 12. He reported he would like to keep clear liquid diet on today continue Pain management PRN. continue antibiotics Cipro and Flagyl. (2)C.diff infection 03/17 Patient Reported he still have diarrhea. C.diff test show positive. 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 (3)Ulcerative colitis 03/17 CAT scan of her abdomen show progressive of colitis on yesterday image study, might secondary to C. difficile infection. pt report he started Antyvia 2 months ago, He is currently scheduled to have an infusion every 8 weeks. His GI physician is Dr. Andrea Nicholson We will continue PO vancomycin, continue pain control, resume home medication antyvia. - Current Meds Current Meds: Current Medications Generic Name Dose Route Start Last Admin Trade Name Freq PRN Reason Stop Dose Admin Enoxaparin Sodium 40 mg 03/17/20 09:00 03/17/20 08:20 Lovenox SUBQ 40 mg DAILY ESEQUIEL Administration Hydromorphone HCl 0.5 mg 03/16/20 20:52 03/17/20 13:30 Dilaudid Inj Syringe IVP 0.5 mg Q2H PRN Administration Pain 8 to 10 Sodium Chloride 1,000 mls @ 125 mls/hr 03/16/20 21:00 03/17/20 13:35 Normal Saline 0.9% IV 125 mls/hr .Q8H ESEQUIEL Infusion Ciprofloxacin 400 mg in 200 mls @ 200 mls/hr 03/16/20 21:00 03/17/20 09:20 Cipro 400 Mg/200 Ml IV Infused Q12H ESEQUIEL Infusion Metronidazole 500 mg in 100 mls @ 100 mls/hr 03/16/20 21:00 03/17/20 13:35 Flagyl 500 Mg/100 Ml IV Infused Q8H ESEQUIEL Infusion Ondansetron HCl 4 mg 03/16/20 20:52 03/17/20 08:30 Zofran Inj IVP 4 mg Q4H PRN Administration Nausea / Vomiting Pantoprazole Sodium 40 mg 03/17/20 07:00 03/17/20 06:03 Protonix IVP 40 mg QDAC ESEQUIEL Administration Sodium Chloride 10 ml 03/16/20 20:52 03/16/20 21:58 Normal Saline Flush 0.9% IVP 10 ml PRN PRN Administration NEEDED PER PROVIDER ORDERS Sodium Chloride 10 ml 03/17/20 01:00 03/17/20 08:20 Normal Saline Flush 0.9% IVP Not Given 0100,0900,1700 ESEQUIEL Vancomycin HCl 125 mg 03/17/20 09:00 03/17/20 12:51 Vancocin PO 125 mg QID [facility] Administration - Lab Result Fish Bone Diagrams: 03/17/20 04:25 03/17/20 04:25 - Additional Planning My Orders: My Active Orders 03/17/20 08:45 Isolation [Infection Precautions] [RC] QSHIFT 03/17/20 09:00 Vancomycin [Vancocin] 125 mg PO QID 03/17/20 17:00 Saccharomyces Boulardii [Florastor] 500 mg PO BIDWM Subjective - Subjective Patient Reports: Feeling Better Objective Vital Signs: Vital Signs - 24 hr 03/16/20 03/16/20 03/16/20 18:48 19:32 21:00 Temperature 36.8 C 36.6 C Heart Rate 72 70 66 Heart Rate [ Brachial] Heart Rate [ Monitoring electrodes] Respiratory 16 16 15 Rate Blood Pressure 125/78 124/77 122/77 Blood Pressure [Right Brachial artery] O2 Saturation 98 100 100 03/16/20 03/16/20 03/17/20 21:45 23:38 04:28 Temperature 37.6 C H 37.2 C 37.1 C Heart Rate Heart Rate [ 80 Brachial] Heart Rate [ 45 L 75 Monitoring electrodes] Respiratory 18 16 16 Rate Blood Pressure Blood Pressure 137/98 H 108/64 105/55 L [Right Brachial artery] O2 Saturation 97 98 03/17/20 03/17/20 03/17/20 08:16 13:25 15:50 Temperature 36.7 C 36.8 C 36.9 C Heart Rate Heart Rate [ 69 77 88 Brachial] Heart Rate [ Monitoring electrodes] Respiratory 18 18 18 Rate Blood Pressure Blood Pressure 123/71 117/71 152/87 H [Right Brachial artery] O2 Saturation 92 94 93 Oxygen O2 Source Room air I&O (Last 24 Hrs): Intake and Output Totals x24h 03/15/20 03/16/20 03/17/20 23:59 23:59 23:59 Intake Total 1400 2678.333 Output Total 140 Balance 1400 2538.333 General: Alert, Oriented x3, No acute distress Neck: Supple Lymphatic: no adenopathy Neuro: Alert, Non Focal, Oriented Times 3 Cardiovascular: Regular rate, Normal S1, Normal S2 Respiratory: Chest non-tender, No respiratory distress, Breath sounds nml Abdomen: Normal bowel sounds, Soft Extremities: Normal pulses - Results Results: Laboratory Results WBC 12.0 x10^3/uL (4.8-10.8) H 03/17/20 04:25 RBC 3.31 10^6/uL (4.70-6.10) L 03/17/20 04:25 Hgb 12.1 g/dL (14.0-18.0) L 03/17/20 04:25 Hct 34.6 % (42.0-52.0) L 03/17/20 04:25 MCV 104.5 fL (80.0-94.0) H 03/17/20 04:25 MCH 36.6 pg (27.0-31.0) H 03/17/20 04:25 MCHC 35.0 g/dL (32.0-36.0) 03/17/20 04:25 RDW 12.8 % (12.0-15.0) 03/17/20 04:25 Plt Count 322 10^3/uL (130-450) 03/17/20 04:25 MPV 8.7 fL (7.4-11.4) 03/17/20 04:25 Neut # (Auto) 8.2 10^3/uL (1.5-6.6) H 03/17/20 04:25 Lymph # (Auto) 2.0 10^3/uL (1.5-3.5) 03/17/20 04:25 [place] # (Auto) 1.7 10^3/uL (0.0-1.0) H 03/17/20 04:25 Eos # (Auto) 0.1 10^3/uL (0.0-0.7) 03/17/20 04:25 Baso # (Auto) 0.1 10^3/uL (0.0-0.1) 03/17/20 04:25 Absolute Nucleated RBC 0.00 x10^3/uL 03/17/20 04:25 Band Neuts % (Manual) Not Reportable 03/17/20 04:25 Abnorm Lymph % (Manual) Not Reportable 03/17/20 04:25 Nucleated RBC % 0.0 /100WBC 03/17/20 04:25 Neutrophils # (Manual) Not Reportable 03/17/20 04:25 Lymphocytes # (Manual) Not Reportable 03/17/20 04:25 Monocytes # (Manual) Not Reportable 03/17/20 04:25 Eosinophils # (Manual) Not Reportable 03/17/20 04:25 Basophils # (Manual) Not Reportable 03/17/20 04:25 Differential Comment MANUAL=AUTO DIFF 03/17/20 04:25 Platelet Estimate NORMAL (130-450,000) (NORMAL) 03/17/20 04:25 RBC Morph Micro Appear NORMAL APPEARANCE (NORMAL) 03/17/20 04:25 Sodium 135 mmol/L (135-145) 03/17/20 04:25 Potassium 3.5 mmol/L (3.5-5.0) 03/17/20 04:25 Chloride 106 mmol/L (101-111) 03/17/20 04:25 Carbon Dioxide 20 mmol/L (21-32) L 03/17/20 04:25 Anion Gap 9.0 (6-13) 03/17/20 04:25 BUN 6 mg/dL (6-20) 03/17/20 04:25 Creatinine 0.8 mg/dL (0.6-1.2) 03/17/20 04:25 Estimated GFR (MDRD) 98 (>89) 03/17/20 04:25 Glucose 108 mg/dL (70-100) H 03/17/20 04:25 Lactic Acid 1.1 mmol/L (0.5-2.2) 03/16/20 19:18 Calcium 8.3 mg/dL (8.5-10.3) L 03/17/20 04:25 Total Bilirubin 0.9 mg/dL (0.2-1.0) 03/16/20 19:00 AST 38 IU/L (10-42) 03/16/20 19:00 ALT 33 IU/L (10-60) 03/16/20 19:00 Alkaline Phosphatase 156 IU/L (42-121) H 03/16/20 19:00 Total Protein 7.0 g/dL (6.7-8.2) 03/16/20 19:00 Albumin 3.6 g/dL (3.2-5.5) 03/16/20 19:00 Globulin 3.4 g/dL (2.1-4.2) 03/16/20 19:00 Albumin/Globulin Ratio 1.1 (1.0-2.2) 03/16/20 19:00 Lipase 36 U/L (22-51) 03/16/20 19:00 Urine Color YELLOW 03/16/20 18:55 Urine Clarity CLEAR (CLEAR) 03/16/20 18:55 Urine pH 5.5 PH (5.0-7.5) 03/16/20 18:55 Ur Specific [place] 1.025 (1.002-1.030) 03/16/20 18:55 Urine Protein NEGATIVE mg/dL (NEGATIVE) 03/16/20 18:55 Urine Glucose (UA) NEGATIVE mg/dL (NEGATIVE) 03/16/20 18:55 Urine Ketones NEGATIVE mg/dL (NEGATIVE) 03/16/20 18:55 Urine Occult Blood NEGATIVE (NEGATIVE) 03/16/20 18:55 Urine Nitrite NEGATIVE (NEGATIVE) 03/16/20 18:55 Urine Bilirubin NEGATIVE (NEGATIVE) 03/16/20 18:55 Urine Urobilinogen 0.2 (NORMAL) E.U./dL (NORMAL) 03/16/20 18:55 Ur Leukocyte Esterase NEGATIVE (NEGATIVE) 03/16/20 18:55 Ur Microscopic Review NOT INDICATED 03/16/20 18:55 Urine Culture Comments NOT INDICATED 03/16/20 18:55 Stl C. diff Tox B Gene POSITIVE (NEGATIVE) A* 03/17/20 04:30 ABX Reporting Has patient been on IV antibiotics over the past 48 hours?: Yes Current Medications - Current Medications Current Medications: Active Medications Enoxaparin Sodium (Lovenox) 40 mg SUBQ DAILY ESEQUIEL Last Admin: 03/17/20 08:20 Dose: 40 mg Documented by: Hydromorphone HCl (Dilaudid Inj Syringe) 0.5 mg IVP Q2H PRN PRN Reason: Pain 8 to 10 Last Admin: 03/17/20 13:30 Dose: 0.5 mg Documented by: Sodium Chloride (Normal Saline 0.9%) 1,000 mls @ 125 mls/hr IV .Q8H [facility] Last Infusion: 03/17/20 13:35 Dose: 125 mls/hr Documented by: Ciprofloxacin (Cipro 400 Mg/200 Ml) 400 mg in 200 mls @ 200 mls/hr IV Q12H [facility] Last Infusion: 03/17/20 09:20 Dose: Infused Documented by: Metronidazole (Flagyl 500 Mg/100 Ml) 500 mg in 100 mls @ 100 mls/hr IV Q8H [facility] Last Infusion: 03/17/20 13:35 Dose: Infused Documented by: Ondansetron HCl (Zofran Inj) 4 mg IVP Q4H PRN PRN Reason: Nausea / Vomiting Last Admin: 03/17/20 08:30 Dose: 4 mg Documented by: Pantoprazole Sodium (Protonix) 40 mg IVP QDAC [facility] Last Admin: 03/17/20 06:03 Dose: 40 mg Documented by: Saccharomyces Boulardii (Florastor) 500 mg PO BIDWM [facility] Sodium Chloride (Normal Saline Flush 0.9%) 10 ml IVP PRN PRN PRN Reason: NEEDED PER PROVIDER ORDERS Last Admin: 03/16/20 21:58 Dose: 10 ml Documented by: Sodium Chloride (Normal Saline Flush 0.9%) 10 ml IVP 0100,0900,1700 [facility] Last Admin: 03/17/20 08:20 Dose: Not Given Documented by: Vancomycin HCl (Vancocin) 125 mg PO QID [facility] Last Admin: 03/17/20 12:51 Dose: 125 mg Documented by:
[2020-03-17] MEDS: SACCHAROMYCES BOULARDII 250 MG CAPSULE PO SCH (16:47)
[2020-03-17] MEDS: SODIUM CHLORIDE FLUSH 0.9% 10 ML SYRINGE IVP PRN (21:32)
[2020-03-18] MEDS: HYDROmorphone 0.5 MG/0.5 ML SYRINGE IVP PRN ×3 (00:18→16:57)
[2020-03-18] MEDS: ONDANSETRON 4 MG/2 ML VIAL IVP PRN ×3 (01:42→18:02)
[2020-03-18] MEDS: SODIUM CHLORIDE 0.9% 1,000 ML IV SCH ×3 (02:33→18:05)
[2020-03-18] MEDS: SODIUM CHLORIDE FLUSH 0.9% 10 ML SYRINGE IVP SCH ×3 (04:15→17:02)
[2020-03-18 05:07] LABS: BASOPHILS # (AUTO) 0.1 10^3/uL (0.0-0.1); BASOPHILS % (AUTO) 0.7 %; EOSINOPHILS # (AUTO) 0.2 10^3/uL (0.0-0.7); HGB - HEMOGLOBIN 12.4 g/dL (14.0-18.0); LYMPHOCYTES # (AUTO) 1.8 10^3/uL (1.5-3.5); LYMPHOCYTES % (AUTO) 21.5 %; MEAN CORPUSCULAR HEMOGLOBIN 36.3 pg (27.0-31.0); MEAN CORPUSCULAR HGB CONC 34.6 g/dL (32.0-36.0); MEAN CORPUSCULAR VOLUME 104.7 fL (80.0-94.0); MEAN PLATELET VOLUME 8.8 fL (7.4-11.4); MONOCYTES # (AUTO) 1.4 10^3/uL (0.0-1.0); MONOCYTES % (AUTO) 16.6 %; NEUTROPHILS % (AUTO) 58.8 %; PLT - PLATELET COUNT 334 10^3/uL (130-450); RED BLOOD COUNT 3.42 10^6/uL (4.70-6.10); RED CELL DISTRIBUTION WIDTH 12.8 % (12.0-15.0); WHITE BLOOD COUNT 8.5 x10^3/uL (4.8-10.8)
[2020-03-18 05:17] LABS: BUN - BLOOD UREA NITROGEN < 5 mg/dL (6-20); CALCIUM 8.2 mg/dL (8.5-10.3); CARBON DIOXIDE - CO2 22 mmol/L (21-32); CHLORIDE 106 mmol/L (101-111); CREATININE 0.6 mg/dL (0.6-1.2); GLUCOSE 117 mg/dL (70-100); SODIUM 137 mmol/L (135-145)
[2020-03-18] MEDS: metroNIDAZOLE 500 MG/100 ML 500 MG/100 ML BAG IV SCH ×3 (05:20→21:17)
[2020-03-18] MEDS: PANTOPRAZOLE 40 MG VIAL IVP SCH (06:11)
[2020-03-18] MEDS ORDERED: POTASSIUM CHLORIDE 20 MEQ TABLET PO ONE (08:00)
[2020-03-18] MEDS: VANCOMYCIN 125 MG CAPSULE PO SCH ×4 (08:43→22:21)
[2020-03-18] MEDS: SACCHAROMYCES BOULARDII 250 MG CAPSULE PO SCH ×2 (08:43→16:58)
[2020-03-18] MEDS: ENOXAPARIN 40 MG/0.4 ML SYRINGE SUBQ SCH (08:44)
[2020-03-18] MEDS: CIPROFLOXACIN 400 MG/200 ML 400 MG/200 ML BAG IV SCH ×2 (08:44→21:13)
[2020-03-18] MEDS ORDERED: PROMETHAZINE INJ 25 MG in SODIUM CHLORIDE 0.9% 50 ML IV PRN (11:49)
[2020-03-18] MEDS ORDERED: PROCHLORPERAZINE 10 MG/2 ML VIAL IVP PRN (11:49)
--- NOTE | 2020-03-18 12:19 | PHARMACY PROGRESS NOTE ---
- Best Possible Medication History Admit Date and Time: 03/17/20 0845 Processed by: Pharmacy Medication History completed: Yes Patient Interview: Pt interview ONLY source (UNABLE TO VERIFY VIA 2ND SOURCE) As the person ultimately responsible for medication therapy, providers are able to order a medication from an existing home medication list in [facility] via the "Reconcile Routine" prior to Confirmation of that medication by contracting support specialist. Such practice is discouraged except when the physician, in their clinical judgment, deems that a medical need exists for a medication without regard to previous use.
--- NOTE | 2020-03-18 13:47 | PROVIDER PROGRESS NOTE ---
Assessment/Plan - Problem List (1) Diverticulitis Assessment/Plan: 91, patient reported his abdominal pain is slightly better than before, Patient reported he still has poor appetite.Patient denies fever,His WBC become normal. 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 WBC is 12. He reported he would like to keep clear liquid diet on today continue Pain management PRN. continue antibiotics Cipro and Flagyl. (2)C.diff infection , Patient reported diarrhea is better than yesterday but still has loose stool couple times. We will continue oral vancomycin 03/17 Patient Reported he still have diarrhea. C.diff test show positive. 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 (3)Ulcerative colitis ,Patient report his abdominal pain is slightly better than yesterday, will continue treat underlying infection including diverticulitis and C. difficile colitis. 03/17 CAT scan of her abdomen show progressive of colitis on yesterday image [facility], might secondary to C. difficile infection. pt report he started Antyvia 2 months ago, He is currently scheduled to have an infusion every 8 weeks. His GI physician is Dr. Andrea Nicholson We will continue PO vancomycin, continue pain control, resume home medication antyvia. - Current Meds Current Meds: Current Medications Generic Name Dose Route Start Last Admin Trade Name Freq PRN Reason Stop Dose Admin Enoxaparin Sodium 40 mg 03/17/20 09:00 03/18/20 08:44 Lovenox SUBQ 40 mg DAILY ESEQUIEL Administration Hydromorphone HCl 0.5 mg 03/16/20 20:52 03/18/20 09:02 Dilaudid Inj Syringe IVP 0.5 mg Q2H PRN Administration Pain 8 to 10 Ciprofloxacin 400 mg in 200 mls @ 200 mls/hr 03/16/20 21:00 03/18/20 11:08 Cipro 400 Mg/200 Ml IV Infused Q12H ESEQUIEL Infusion Metronidazole 500 mg in 100 mls @ 100 mls/hr 03/16/20 21:00 03/18/20 06:27 Flagyl 500 Mg/100 Ml IV Infused Q8H ESEQUIEL Infusion Sodium Chloride 1,000 mls @ 100 mls/hr 03/18/20 07:49 03/18/20 08:50 Normal Saline 0.9% IV 03/19/20 03:47 100 mls/hr .Q10H ESEQUIEL Administration Promethazine HCl 25 mg/ Sodium 51 mls @ 100 mls/hr 03/18/20 11:49 03/18/20 13:21 Chloride IV 100 mls/hr Q6H PRN Administration Nausea / Vomiting Ondansetron HCl 4 mg 03/16/20 20:52 03/18/20 08:50 Zofran Inj IVP 4 mg Q4H PRN Administration Nausea / Vomiting Saccharomyces Boulardii 500 mg 03/17/20 17:00 03/18/20 08:43 Florastor PO 500 mg BIDWM ESEQUIEL Administration Sodium Chloride 10 ml 03/16/20 20:52 03/17/20 21:32 Normal Saline Flush 0.9% IVP 10 ml PRN PRN Administration NEEDED PER PROVIDER ORDERS Sodium Chloride 10 ml 03/17/20 01:00 03/18/20 08:45 Normal Saline Flush 0.9% IVP 10 ml 0100,0900,1700 ESEQUIEL Administration Vancomycin HCl 125 mg 03/17/20 09:00 03/18/20 13:20 Vancocin PO 125 mg QID ESEQUIEL Administration - Lab Result Fish Bone Diagrams: 03/18/20 04:30 03/18/20 04:30 - Additional Planning My Orders: My Active Orders 03/17/20 17:00 Saccharomyces Boulardii [Florastor] 500 mg PO BIDWM 03/18/20 07:49 Sodium Chloride 0.9% [Normal Saline 0.9%] 1,000 ml IV 100 mls/hr 03/18/20 11:49 Prochlorperazine Inj [Compazine Inj] 10 mg IVP Q6HR PRN Promethazine Inj [Phenergan Inj] 25 mg Sodium Chloride 0.9% [Normal Saline 0.9%] 50 ml IV Q6H Subjective - Subjective Patient Reports: Feeling Better Objective Vital Signs: Vital Signs - 24 hr 03/17/20 03/17/20 03/18/20 15:50 20:46 00:00 Temperature 36.9 C 36.9 C 36.9 C Heart Rate Heart Rate [ 88 76 Brachial] Heart Rate [ 80 Monitoring electrodes] Respiratory 18 16 16 Rate Blood Pressure 152/87 H 123/73 114/75 [Right Brachial artery] O2 Saturation 93 96 95 03/18/20 03/18/20 03/18/20 02:40 05:30 07:53 Temperature 36.9 C 36.7 C 36.9 C Heart Rate 80 Heart Rate [ 77 92 Brachial] Heart Rate [ Monitoring electrodes] Respiratory 16 16 16 Rate Blood Pressure 123/69 135/75 H [Right Brachial artery] O2 Saturation 95 95 95 Oxygen O2 Source Room air I&O (Last 24 Hrs): Intake and Output Totals x24h 03/16/20 03/17/20 03/18/20 23:59 23:59 23:59 Intake Total 1400 4848.333 3260 Output Total 140 Balance 1400 4708.333 3260 General: Alert, Oriented x3, No acute distress HEENT: Atraumatic Neck: Supple Lymphatic: no adenopathy Neuro: Alert, Non Focal, Oriented Times 3 Cardiovascular: Regular rate, Normal S1, Normal S2 Respiratory: Chest non-tender, No respiratory distress, Breath sounds nml Abdomen: Normal bowel sounds, Soft Extremities: Normal pulses - Results Results: Laboratory Results WBC 8.5 x10^3/uL (4.8-10.8) 03/18/20 04:30 RBC 3.42 10^6/uL (4.70-6.10) L 03/18/20 04:30 Hgb 12.4 g/dL (14.0-18.0) L 03/18/20 04:30 Hct 35.8 % (42.0-52.0) L 03/18/20 04:30 MCV 104.7 fL (80.0-94.0) H 03/18/20 04:30 MCH 36.3 pg (27.0-31.0) H 03/18/20 04:30 MCHC 34.6 g/dL (32.0-36.0) 03/18/20 04:30 RDW 12.8 % (12.0-15.0) 03/18/20 04:30 Plt Count 334 10^3/uL (130-450) 03/18/20 04:30 MPV 8.8 fL (7.4-11.4) 03/18/20 04:30 Neut # (Auto) 5.0 10^3/uL (1.5-6.6) 03/18/20 04:30 Lymph # (Auto) 1.8 10^3/uL (1.5-3.5) 03/18/20 04:30 [place] # (Auto) 1.4 10^3/uL (0.0-1.0) H 03/18/20 04:30 Eos # (Auto) 0.2 10^3/uL (0.0-0.7) 03/18/20 04:30 Baso # (Auto) 0.1 10^3/uL (0.0-0.1) 03/18/20 04:30 Absolute Nucleated RBC 0.00 x10^3/uL 03/18/20 04:30 Band Neuts % (Manual) Not Reportable 03/17/20 04:25 Abnorm Lymph % (Manual) Not Reportable 03/17/20 04:25 Nucleated RBC % 0.0 /100WBC 03/18/20 04:30 Neutrophils # (Manual) Not Reportable 03/17/20 04:25 Lymphocytes # (Manual) Not Reportable 03/17/20 04:25 Monocytes # (Manual) Not Reportable 03/17/20 04:25 Eosinophils # (Manual) Not Reportable 03/17/20 04:25 Basophils # (Manual) Not Reportable 03/17/20 04:25 Differential Comment MANUAL=AUTO DIFF 03/17/20 04:25 Platelet Estimate NORMAL (130-450,000) (NORMAL) 03/17/20 04:25 RBC Morph Micro Appear NORMAL APPEARANCE (NORMAL) 03/17/20 04:25 Sodium 137 mmol/L (135-145) 03/18/20 04:30 Potassium 3.1 mmol/L (3.5-5.0) L 03/18/20 04:30 Chloride 106 mmol/L (101-111) 03/18/20 04:30 Carbon Dioxide 22 mmol/L (21-32) 03/18/20 04:30 Anion Gap 9.0 (6-13) 03/18/20 04:30 BUN < 5 mg/dL (6-20) L 03/18/20 04:30 Creatinine 0.6 mg/dL (0.6-1.2) 03/18/20 04:30 Estimated GFR (MDRD) 136 (>89) 03/18/20 04:30 Glucose 117 mg/dL (70-100) H 03/18/20 04:30 Lactic Acid 1.1 mmol/L (0.5-2.2) 03/16/20 19:18 Calcium 8.2 mg/dL (8.5-10.3) L 03/18/20 04:30 Total Bilirubin 0.9 mg/dL (0.2-1.0) 03/16/20 19:00 AST 38 IU/L (10-42) 03/16/20 19:00 ALT 33 IU/L (10-60) 03/16/20 19:00 Alkaline Phosphatase 156 IU/L (42-121) H 03/16/20 19:00 Total Protein 7.0 g/dL (6.7-8.2) 03/16/20 19:00 Albumin 3.6 g/dL (3.2-5.5) 03/16/20 19:00 Globulin 3.4 g/dL (2.1-4.2) 03/16/20 19:00 Albumin/Globulin Ratio 1.1 (1.0-2.2) 03/16/20 19:00 Lipase 36 U/L (22-51) 03/16/20 19:00 Urine Color YELLOW 03/16/20 18:55 Urine Clarity CLEAR (CLEAR) 03/16/20 18:55 Urine pH 5.5 PH (5.0-7.5) 03/16/20 18:55 Ur Specific [place] 1.025 (1.002-1.030) 03/16/20 18:55 Urine Protein NEGATIVE mg/dL (NEGATIVE) 03/16/20 18:55 Urine Glucose (UA) NEGATIVE mg/dL (NEGATIVE) 03/16/20 18:55 Urine Ketones NEGATIVE mg/dL (NEGATIVE) 03/16/20 18:55 Urine Occult Blood NEGATIVE (NEGATIVE) 03/16/20 18:55 Urine Nitrite NEGATIVE (NEGATIVE) 03/16/20 18:55 Urine Bilirubin NEGATIVE (NEGATIVE) 03/16/20 18:55 Urine Urobilinogen 0.2 (NORMAL) E.U./dL (NORMAL) 03/16/20 18:55 Ur Leukocyte Esterase NEGATIVE (NEGATIVE) 03/16/20 18:55 Ur Microscopic Review NOT INDICATED 03/16/20 18:55 Urine Culture Comments NOT INDICATED 03/16/20 18:55 Stl C. diff Tox B Gene POSITIVE (NEGATIVE) A* 03/17/20 04:30 ABX Reporting Has patient been on IV antibiotics over the past 48 hours?: Yes Current Medications - Current Medications Current Medications: Active Medications Enoxaparin Sodium (Lovenox) 40 mg SUBQ DAILY [facility] Last Admin: 03/18/20 08:44 Dose: 40 mg Documented by: Hydromorphone HCl (Dilaudid Inj Syringe) 0.5 mg IVP Q2H PRN PRN Reason: Pain 8 to 10 Last Admin: 03/18/20 09:02 Dose: 0.5 mg Documented by: Ciprofloxacin (Cipro 400 Mg/200 Ml) 400 mg in 200 mls @ 200 mls/hr IV Q12H [facility] Last Infusion: 03/18/20 11:08 Dose: Infused Documented by: Metronidazole (Flagyl 500 Mg/100 Ml) 500 mg in 100 mls @ 100 mls/hr IV Q8H [facility] Last Infusion: 03/18/20 06:27 Dose: Infused Documented by: Sodium Chloride (Normal Saline 0.9%) 1,000 mls @ 100 mls/hr IV .Q10H [facility] Stop: 03/19/20 03:47 Last Admin: 03/18/20 08:50 Dose: 100 mls/hr Documented by: Promethazine HCl 25 mg/ Sodium (Chloride) 51 mls @ 100 mls/hr IV Q6H PRN PRN Reason: Nausea / Vomiting Last Admin: 03/18/20 13:21 Dose: 100 mls/hr Documented by: Ondansetron HCl (Zofran Inj) 4 mg IVP Q4H PRN PRN Reason: Nausea / Vomiting Last Admin: 03/18/20 08:50 Dose: 4 mg Documented by: Prochlorperazine Edisylate (Compazine Inj) 10 mg IVP Q6HR PRN PRN Reason: Nausea / Vomiting Saccharomyces Boulardii (Florastor) 500 mg PO BIDWM [facility] Last Admin: 03/18/20 08:43 Dose: 500 mg Documented by: Sodium Chloride (Normal Saline Flush 0.9%) 10 ml IVP PRN PRN PRN Reason: NEEDED PER PROVIDER ORDERS Last Admin: 03/17/20 21:32 Dose: 10 ml Documented by: Sodium Chloride (Normal Saline Flush 0.9%) 10 ml IVP 0100,0900,1700 [facility] Last Admin: 03/18/20 08:45 Dose: 10 ml Documented by: Vancomycin HCl (Vancocin) 125 mg PO QID [facility] Last Admin: 03/18/20 13:20 Dose: 125 mg Documented by: Aspirin EC [Ecotrin] 325 mg PO DAILY 03/18/20 Carvedilol 12.5 mg PO DAILY 03/18/20 Cetirizine [ZyrTEC] 10 mg PO DAILY 03/18/20 Ezetimibe [Zetia] 10 mg PO DAILY 03/18/20 Gabapentin [Neurontin] 300 mg PO DAILY 03/18/20 Mesalamine [Delzicol] 400 mg PO DAILY 03/18/20 Omeprazole 20 mg PO DAILY 03/18/20 Rosuvastatin Calcium [Crestor] 5 mg PO DAILY 03/18/20 amLODIPine [Norvasc] 5 mg PO DAILY 03/18/20
[2020-03-18] MEDS ORDERED: ACETAMINOPHEN 325 MG TABLET PO PRN (15:58)
[2020-03-18] MEDS: GABAPENTIN 300 MG CAPSULE PO SCH (18:01)
[2020-03-18] MEDS: SODIUM CHLORIDE FLUSH 0.9% 10 ML SYRINGE IVP PRN (18:02)
[2020-03-18] MEDS: IBUPROFEN 600 MG TABLET PO SCH (18:02)
[2020-03-18] MEDS ORDERED: ASPIRIN CHEW 81 MG TABLET PO STA (21:51)
[2020-03-19] MEDS: metroNIDAZOLE 500 MG/100 ML 500 MG/100 ML BAG IV SCH ×2 (04:55→14:06)
[2020-03-19] MEDS: IBUPROFEN 600 MG TABLET PO SCH ×3 (05:03→13:43)
[2020-03-19 05:28] LABS: BASOPHILS # (AUTO) 0.1 10^3/uL (0.0-0.1); BASOPHILS % (AUTO) 0.9 %; EOSINOPHILS # (AUTO) 0.2 10^3/uL (0.0-0.7); EOSINOPHILS % (AUTO) 2.4 %; HGB - HEMOGLOBIN 12.4 g/dL (14.0-18.0); LYMPHOCYTES # (AUTO) 2.3 10^3/uL (1.5-3.5); MEAN CORPUSCULAR HEMOGLOBIN 35.6 pg (27.0-31.0); MEAN CORPUSCULAR HGB CONC 33.7 g/dL (32.0-36.0); MEAN CORPUSCULAR VOLUME 105.7 fL (80.0-94.0); MEAN PLATELET VOLUME 8.8 fL (7.4-11.4); MONOCYTES # (AUTO) 1.3 10^3/uL (0.0-1.0); MONOCYTES % (AUTO) 16.5 %; NEUTROPHILS # (AUTO) 3.9 10^3/uL (1.5-6.6); NEUTROPHILS % (AUTO) 49.8 %; PLT - PLATELET COUNT 344 10^3/uL (130-450); RED BLOOD COUNT 3.48 10^6/uL (4.70-6.10); RED CELL DISTRIBUTION WIDTH 12.8 % (12.0-15.0); WHITE BLOOD COUNT 7.8 x10^3/uL (4.8-10.8)
[2020-03-19 05:38] LABS: BUN - BLOOD UREA NITROGEN < 5 mg/dL (6-20); CALCIUM 8.6 mg/dL (8.5-10.3); CARBON DIOXIDE - CO2 22 mmol/L (21-32); CHLORIDE 110 mmol/L (101-111); CREATININE 0.8 mg/dL (0.6-1.2); GLUCOSE 103 mg/dL (70-100); SODIUM 141 mmol/L (135-145)
[2020-03-19] MEDS ORDERED: NITROGLYCERIN SL 0.4 MG TABLET SL PRN (07:42)
[2020-03-19] MEDS ORDERED: POTASSIUM CHLORIDE 20 MEQ TABLET PO ONE (08:00)
[2020-03-19] MEDS: SACCHAROMYCES BOULARDII 250 MG CAPSULE PO SCH (08:17)
[2020-03-19] MEDS: ENOXAPARIN 40 MG/0.4 ML SYRINGE SUBQ SCH (08:18)
[2020-03-19] MEDS: VANCOMYCIN 125 MG CAPSULE PO SCH ×2 (08:18→13:43)
[2020-03-19] MEDS: GABAPENTIN 300 MG CAPSULE PO SCH (08:18)
[2020-03-19] MEDS: POTASSIUM CHLOR 10 MEQ/100 ML 10 MEQ/100 ML BAG IV SCH ×3 (08:19→13:19)
[2020-03-19] MEDS ORDERED: MESALAMINE 400 MG PO SCH (09:00)
[2020-03-19] MEDS ORDERED: ASPIRIN EC 325 MG TABLET PO SCH (09:00)
[2020-03-19] MEDS: CIPROFLOXACIN 400 MG/200 ML 400 MG/200 ML BAG IV SCH (10:43)
[2020-03-19] MEDS: SODIUM CHLORIDE FLUSH 0.9% 10 ML SYRINGE IVP SCH ×2 (10:45)
--- NOTE | 2020-03-19 15:19 | Discharge Plan ---
Discharge Plan Problem Reviewed?: Yes Disposition: Home, Self Care Condition: Stable Prescriptions: Ciprofloxacin [Cipro] 500 mg PO BID #8 ml metroNIDAZOLE [Flagyl] 500 mg PO TID #12 tablet Saccharomyces Boulardii [Florastor] 250 mg PO BIDWM #16 capsule Vancomycin [Vancocin] 125 mg PO QID #32 capsule Diet: Regular Activity Restrictions: Activity as Tolerated Shower Restrictions: No (fall precaution) Instruction Topics: Metronidazole tablets or capsules, Vancomycin oral solution, Ciprofloxacin tablets, Diverticulosis Diverticulitis, Clostridium Difficile Infec Health Concerns: diverticulitis, C.diff colitis Plan of Treatment: You was found to have diverticulitis. After treatment, your symptoms were resolved, you tolerate regular diet without abdominal pain. you are prescribed antibiotics Cipro and Flagyl. You also were found to have C.Diff colitis infection, you are prescribed Vancomycin oral solution. Care Goals: stabilization and improvement of your medical conditions Assessment: discussed the care plan with you, you understood and agreed Additional Instructions or Follow Up instructions: You may followup with your PCP in one to two weeks. Should your symptoms return or worsen, you may present ER or call 911 for help. No Smoking: If you smoke, Please STOP! Call for help. Follow-up with: Terri Olivas MD [Primary Care Provider] -
--- NOTE | 2020-03-19 15:39 | DISCHARGE SUMMARY ---
Discharge Summary Admit Date: 03/16/20 Discharge Date: 03/19/20 Discharging Provider: Elmer Martinez Primary Care Provider: Dr. Olivas Condition at Discharge: Stable Discharge Disposition: 01 Home, Self Care Discharge Facility Name: home - DIAGNOSES Discharge Diagnoses with Status of Each Condition: (1) Diverticulitis pt Tolerated regular diet without abdominal pain, nausea, vomiting. WBC is normal. Patient has no fever. pt is prescribed antibiotics Cipro and Flagyl. (2)C.diff infection Patient has no more diarrhea, Has no more abdominal pain. Patient tolerated regular diet. pt is prescribed oral vancomycin. (3)Ulcerative colitis stable, pt has hx of ulcerative colitis. Patient has no abdominal pain, no diarrhea, patient tolerate regular diet. advise pt followup with His GI physician Dr. Andrea Nicholson (4)atypical chest pain Resolved. Patient report his chest pain is positionally, when he rise his arm he feels some chest pain, when he was sitting, he feel chest pain but he lay flat chest pain disappeared. pt has no more chest pain now. two times of troponin is negative. EKG show SR without any change. pt had stress test one month ago, it was negative for acute OK. - HPI History of Present Illness: refer from Dr. Almeida's HPI on 03/16/2020 Patient is a 65-year-old male with history of ulcerative colitis who is currently on Antyvia. He presented to the ED today with worsening abdominal pain, nausea vomiting and diarrhea. He was diagnosed with diverticulitis 10 days ago and placed on Augmentin which he has taken to completion. However with worsening symptoms today he called his primary care physician and was advised to come to the emergency room. He has been experiencing 3-4 episodes of diarrhea daily and has been vomiting on average 2 times daily. He denied chest pain dy spnea, fever or chills. He has some dyspnea on exertion. In the ED work-up included a CT of the abdomen pelvis which showed worsening diverticulitis. He also had a WBC of 13.5. As a result he was presented for admission for further treatment. - HOSPITAL COURSE Hospital Course: Patient was admitted for abdominal pain, nausea, vomiting, diarrhea. Patient failed outpatient treatment for diverticulitis. In hospital, patient was found to have C. difficile infection. Patient was treated with bowel rest, intravenous IV fluids, antibiotics Cipro and Flagyl, PO vancomycin for C. difficile. After treatment, patient tolerated regular diet, without abdominal pain, nausea, vomiting. Patient also reported no diarrhea. Patient report on last night Atypical chest pain, it is positionally, troponin are negative. EKG shows NSR, no ST elevation or depression, and no arrhythmias, No significant T-wave inversions. Patient had stress test which was normal 1 month ago.Patient was discharged in stable condition - ALLERGIES Allergies/Adverse Reactions: Allergies Allergy/AdvReac Type Severity Reaction Status Date / Time No Known Drug Allergies Allergy Verified 03/16/20 18:48 - MEDICATIONS Home Medications: Ambulatory Orders Medication Instructions Recorded Confirmed Aspirin EC [Ecotrin] 325 mg PO DAILY 03/18/20 03/18/20 Carvedilol 12.5 mg PO DAILY 03/18/20 03/18/20 Cetirizine [ZyrTEC] 10 mg PO DAILY 03/18/20 03/18/20 Ezetimibe [Zetia] 10 mg PO DAILY 03/18/20 03/18/20 Gabapentin [Neurontin] 300 mg PO DAILY 03/18/20 03/18/20 Mesalamine [Delzicol] 400 mg PO DAILY 03/18/20 03/18/20 Omeprazole 20 mg PO DAILY 03/18/20 03/18/20 Rosuvastatin Calcium [Crestor] 5 mg PO DAILY 03/18/20 03/18/20 amLODIPine [Norvasc] 5 mg PO DAILY 03/18/20 03/18/20 Ciprofloxacin [Cipro] 500 mg PO BID #8 ml 03/19/20 Saccharomyces Boulardii [Florastor] 250 mg PO BIDWM #16 capsule 03/19/20 Vancomycin [Vancocin] 125 mg PO QID #32 capsule 03/19/20 metroNIDAZOLE [Flagyl] 500 mg PO TID #12 tablet 03/19/20 - PHYSICAL EXAM AT DISCHARGE General Appearance: positive: No acute distress, Alert. negative: Lethargic Eyes Bilateral: positive: Normal inspection, PERRL, No lid inflammation ENT: positive: ENT inspection nml, No signs of dehydration. negative: Purulent nasal drainage Neck: positive: Nml inspection, Thyroid nml, Trachea midline. negative: Thyromegaly, Stiff neck, Tracheal deviation Respiratory: positive: Chest non-tender, No respiratory distress, Breath sounds nml. negative: Wheezes, Rales, Rhonchi Cardiovascular: positive: Regular rate & rhythm, No murmur. negative: Irregularly irregular, Extrasystoles, Tachycardia, Bradycardia, Systolic murmur, Diastolic murmur Peripheral Pulses: positive: 2+ Abdomen: positive: Non-tender, Nml bowel sounds, No distention. negative: Tenderness, Guarding, Rebound Back: positive: Nml inspection. negative: CVA tenderness (R), CVA tenderness (L) Skin: positive: Color nml, No rash, Warm, Dry. negative: Cyanosis, Diaphoresis, Pallor Extremities: positive: Non-tender, Full ROM, Nml appearance. negative: Calf tenderness Neurologic/Psychiatric: positive: Oriented x3, Motor nml, Sensation nml, Mood/affect nml. negative: Weakness, Sensory loss, Facial droop, Slurred/abnml speech, Depressed mood/affect - LABS Result Diagrams: 03/19/20 05:20 03/19/20 05:20 - FOLLOW UP Follow Up: You was found to have diverticulitis. After treatment, your symptoms were resolved, you tolerate regular diet without abdominal pain. you are prescribed antibiotics Cipro and Flagyl. You also were found to have C.Diff colitis infection, you are prescribed Vancomycin oral solution. You may followup with your PCP in one to two weeks, followup with your GI physician as out-pt. Should your symptoms return or worsen, you may present ER or call 911 for help. - TIME SPENT Time Spent in Discharge (Minutes): 30
[2020-03-19 16:06] VITALS: BP 135/94
[2020-03-20] MEDS ORDERED: carvediloL 12.5 MG TABLET PO SCH (09:00)
== END 2020-03-19 16:13 | disposition home or self-care (01) | DRG 392 ==
LOC: ED 18:42 → OBS 20:52 → MS2 21:38 → OBSVTOIN 03-17 08:45
PROVIDERS: ADMIT Internal Medicine; ATTEND Nurse Practitioner Gerontology
DX: K57.32 Diverticulitis of large intestine without perforation or abscess without bleeding (principal); A04.72 Enterocolitis due to Clostridium difficile, not specified as recurrent; K51.90 Ulcerative colitis, unspecified, without complications; R07.89 Other chest pain; I10 Essential (primary) hypertension; E78.00 Pure hypercholesterolemia, unspecified; I25.10 Atherosclerotic heart disease of native coronary artery without angina pectoris; N40.0 Benign prostatic hyperplasia without lower urinary tract symptoms; I25.2 Old myocardial infarction; Z95.5 Presence of coronary angioplasty implant and graft
CPT/HCPCS: 36415; 74177; 80048; 80053; 81003; 83605; 83690; 84484; 85025; 87493; 93005; 96361; 96365; 96366; 96367; 96368; 96372; 96375; 96376; 99285; A9270; G0378; J1170; J1650; J7040; J8499; Q9967; 81001; 87086

== ENCOUNTER 2020-03-22 17:18 | Inpatient (IN) | payer BC ==
[2020-03-22] MEDS ORDERED: ONDANSETRON 4 MG/2 ML VIAL IVP STA ×2 (17:47→20:06)
[2020-03-22] MEDS ORDERED: HYDROmorphone 1 MG/ML CARPUJECT IVP STA ×2 (17:47→20:06)
--- NOTE | 2020-03-22 17:48 | ED Physician Documentation ---
PD HPI ABD PAIN - Stated complaint Stated Complaint: ABD PAIN - Chief complaint Chief Complaint: Abd Pain - History obtained from History obtained from: Patient - Additional information Additional information: 65-year-old gentleman with history of ulcerative colitis, recent bout of diverticulitis which was originally treated with amoxicillin and then was admitted to the hospital on the eighth of this month because of worsening pain and also had developed C. difficile. He was discharged a few days ago and good condition, he says he was all but better on vancomycin, Cipro and Flagyl. This morning developed recurrent low abdominal pain radiating towards his penis. He has had some loose stools without overt diarrhea. No fevers. Review of Systems Ten Systems: 10 systems reviewed and negative Constitutional: denies: Fever, Chills Cardiac: reports: Reviewed and negative Respiratory: reports: Reviewed and negative PD PAST MEDICAL HISTORY - Past Medical History Cardiovascular: Hypertension, High cholesterol, Coronary artery disease, [place] Respiratory: None Neuro: Head injury Endocrine/Autoimmune: None GI: Diverticulitis, Ulcerative colitis : Benign prostate hypertrophy HEENT: None Psych: None Musculoskeletal: None Derm: None - Past Surgical History Past Surgical History: Yes Cardiovascular: Coronary stent - Present Medications Home Medications: Ambulatory Orders Medication Instructions Recorded Confirmed Aspirin EC [Ecotrin] 325 mg PO DAILY 03/18/20 03/18/20 Carvedilol 12.5 mg PO DAILY 03/18/20 03/18/20 Cetirizine [ZyrTEC] 10 mg PO DAILY 03/18/20 03/18/20 Ezetimibe [Zetia] 10 mg PO DAILY 03/18/20 03/18/20 Gabapentin [Neurontin] 300 mg PO DAILY 03/18/20 03/18/20 Mesalamine [Delzicol] 400 mg PO DAILY 03/18/20 03/18/20 Omeprazole 20 mg PO DAILY 03/18/20 03/18/20 Rosuvastatin Calcium [Crestor] 5 mg PO DAILY 03/18/20 03/18/20 amLODIPine [Norvasc] 5 mg PO DAILY 03/18/20 03/18/20 Ciprofloxacin [Cipro] 500 mg PO BID #8 ml 03/19/20 Saccharomyces Boulardii [Florastor] 250 mg PO BIDWM #16 capsule 03/19/20 Vancomycin [Vancocin] 125 mg PO QID #32 capsule 03/19/20 metroNIDAZOLE [Flagyl] 500 mg PO TID #12 tablet 03/19/20 - Allergies Allergies/Adverse Reactions: Allergies Allergy/AdvReac Type Severity Reaction Status Date / Time No Known Drug Allergies Allergy Verified 03/22/20 17:36 - Social History Does the pt smoke?: No Smoking Status: Never smoker Does the pt drink ETOH?: Yes Does the pt have substance abuse?: No - Immunizations Immunizations are current?: Yes - POLST Patient has POLST: No POLST Status: Full Code PD ED PE NORMAL - Vitals Vital signs reviewed: Yes - General General: Alert and oriented X 3, No acute distress - HEENT HEENT: PERRL, EOMI - Neck Neck: Supple, no meningeal sign, No bony TTP - Cardiac Cardiac: RRR, No murmur - Respiratory Respiratory: No respiratory distress, Clear bilaterally - Abdomen Abdomen: Normal bowel sounds, Other (Tender in the low abdomen with mild rebound but no guarding.) - Back Back: No CVA TTP - Derm Derm: Normal color, Warm and dry - Extremities Extremities: No edema, No calf tenderness / cord - Neuro Neuro: Alert and oriented X 3, Normal speech Results - Vitals Vitals: Vital Signs - 24 hr 03/22/20 03/22/20 17:28 17:30 Temperature 36.8 C Heart Rate 87 87 Respiratory 20 18 Rate Blood Pressure 155/88 H 142/78 H O2 Saturation 99 96 Oxygen O2 Source Room air - Labs Labs: Laboratory Tests 03/22/20 03/22/20 17:54 17:54 WBC 14.7 H RBC 3.94 L Hgb 14.2 Hct 40.9 L MCV 103.8 H MCH 36.0 H MCHC 34.7 RDW 12.3 Plt Count 428 MPV 8.8 Neut # (Auto) 11.6 H Lymph # (Auto) 1.5 Hartley # (Auto) 1.3 H Eos # (Auto) 0.1 Baso # (Auto) 0.1 Absolute Nucleated RBC 0.00 Nucleated RBC % 0.0 Sodium 138 Potassium 3.0 L Chloride 106 Carbon Dioxide 23 Anion Gap 9.0 BUN 8 Creatinine 1.0 Estimated GFR (MDRD) 75 L Glucose 131 H Calcium 8.6 Total Bilirubin 0.5 AST 56 H ALT 28 Alkaline Phosphatase 96 Total Protein 6.6 L Albumin 3.5 Globulin 3.1 Albumin/Globulin Ratio 1.1 Lipase 40 Ethyl Alcohol < 5.0 - Rads (name of study) CT A/P Radiology: EMP read contemporaneously (Worsening of sigmoid diverticulitis now with a contained perforation without junior drainable abscess.) PD MEDICAL DECISION MAKING - ED course ED course: 65-year-old gentleman with recent diagnosis of diverticulitis and admitted for same on Cipro and Flagyl also developed some C. difficile diarrhea to being treated with oral vancomycin, now pain worse today. With some tenderness and guarding. CT shows a contained perforation. Call placed to the hospitalist for admission at 7:30 PM. - Consults Consults: Consulted (name) (Spoke with the on-call surgeon, Dr. Maza at 7:20 PM and she will consults.) Departure - Departure Disposition: 66 [facility] DC/Xfer Clinical Impression: Perforation of intestine due to diverticulitis of gastrointestinal tract Condition: Serious
[2020-03-22] MEDS ORDERED: IOVERSOL 320 100 ML VIAL IVP ONE ×2 (17:57→18:45)
[2020-03-22 18:10] LABS: BASOPHILS # (AUTO) 0.1 10^3/uL (0.0-0.1); BASOPHILS % (AUTO) 0.7 %; EOSINOPHILS # (AUTO) 0.1 10^3/uL (0.0-0.7); EOSINOPHILS % (AUTO) 0.7 %; HGB - HEMOGLOBIN 14.2 g/dL (14.0-18.0); LYMPHOCYTES # (AUTO) 1.5 10^3/uL (1.5-3.5); LYMPHOCYTES % (AUTO) 10.2 %; MEAN CORPUSCULAR HGB CONC 34.7 g/dL (32.0-36.0); MEAN CORPUSCULAR VOLUME 103.8 fL (80.0-94.0); MEAN PLATELET VOLUME 8.8 fL (7.4-11.4); MONOCYTES # (AUTO) 1.3 10^3/uL (0.0-1.0); MONOCYTES % (AUTO) 8.6 %; NEUTROPHILS # (AUTO) 11.6 10^3/uL (1.5-6.6); NEUTROPHILS % (AUTO) 79.2 %; PLT - PLATELET COUNT 428 10^3/uL (130-450); RED BLOOD COUNT 3.94 10^6/uL (4.70-6.10); RED CELL DISTRIBUTION WIDTH 12.3 % (12.0-15.0); WHITE BLOOD COUNT 14.7 x10^3/uL (4.8-10.8)
[2020-03-22 18:24] LABS: ALBUMIN 3.5 g/dL (3.2-5.5); ALBUMIN/GLOBULIN RATIO 1.1 (1.0-2.2); ALKALINE PHOSPHATASE 96 IU/L (42-121); ALT ALANINE AMINOTRANSFERASE 28 IU/L (10-60); AST ASPARTATE AMINOTRANSFERASE 56 IU/L (10-42); BILIRUBIN,TOTAL 0.5 mg/dL (0.2-1.0); BUN - BLOOD UREA NITROGEN 8 mg/dL (6-20); CALCIUM 8.6 mg/dL (8.5-10.3); CARBON DIOXIDE - CO2 23 mmol/L (21-32); CHLORIDE 106 mmol/L (101-111); GLUCOSE 131 mg/dL (70-100); LIPASE 40 U/L (22-51); SODIUM 138 mmol/L (135-145); TOTAL PROTEIN 6.6 g/dL (6.7-8.2)
[2020-03-22] MEDS ORDERED: PIPERACILLIN/TAZOBACTAM 3.375 GM in SODIUM CHLORIDE 0.9% MINIBAG 100 ML IV STA (18:38)
--- NOTE | 2020-03-22 18:55 | CT Report ---
PROCEDURE: Abdomen/Pelvis W INDICATIONS: IV only, low abd pain, recent diverticulitis CONTRAST: IV CONTRAST: Optiray 320 ml: 100 PO CONTRAST: *NO PO CONTRAST TECHNIQUE: After the administration of nonionic IV contrast, 5 mm thick sections acquired from the diaphragms to the symphysis. 5 mm thick coronal and sagittal reformats were acquired. For radiation dose reducti on, the following was used: automated exposure control, adjustment of mA and/or kV according to beth ent size. COMPARISON: Abdomen and pelvis CT examinations 03/16/2020, 03/04/2020. FINDINGS: Image quality: Excellent. ABDOMEN: Lung bases: Lung bases are clear. Heart size is normal. Moderate coronary artery calcification can be seen. A small hiatal hernia is incidentally noted. Solid organs: Liver and spleen are normal in size and enhancement. Gallbladder wall does not appear thickened. Biliary system is non dilated. Pancreas enhances normally. No adrenal nodules. Kidn eys demonstrate normal size and enhancement, without hydronephrosis. Peritoneum and bowel: There is prominent wall thickening seen involving the sigmoid colon, with extr aluminal gas and fluid, which is best seen on series 3 image 65. No loculated fluid collection is see n to suggest abscess. Airways wall thickening can be seen throughout the colon, which is similar to the prior examination. Nodes and vessels: No retroperitoneal or mesenteric adenopathy by size criteria. Aorta and inferior vena cava are normal in size. Miscellaneous: No ventral hernias. PELVIS: Genitourinary: Bladder wall thickness is normal. Miscellaneous: No inguinal adenopathy. There is a prominent, fat-containing left inguinal hernia se en. Bones: No suspicious bony lesions. No vertebral body compression fractures. Mild to moderate levoc onvex lumbar sclerotic curvature is seen. IMPRESSION: Worsening of sigmoid diverticulitis, now with a contained perforation seen. No junior, drainable abscess is seen. More generalized colitis can also be seen, as before. Please consider short-term follow-up. Incidental note is made of: Small hiatal hernia Atherosclerotic calcification, including coronary artery calcification Prominent fat-containing left inguinal hernia Reviewed by: Tor Mclaughlin MD on 03/22/2020 5:54 PM [facility] Approved by: Tor Mclaughlin MD on 03/22/2020 5:54 PM [facility]DT Station ID: [id number]
[2020-03-22] MEDS ORDERED: POTASSIUM CHLOR 10 MEQ/100 ML 10 MEQ/100 ML BAG IV ONE (19:23)
[2020-03-22] MEDS ORDERED: ONDANSETRON ODT 4 MG TABLET TL PRN (19:31)
[2020-03-22] MEDS ORDERED: SODIUM CHLORIDE FLUSH 0.9% 10 ML SYRINGE IVP PRN (19:31)
[2020-03-22] MEDS ORDERED: ACETAMINOPHEN 325 MG TABLET PO PRN (19:31)
--- NOTE | 2020-03-22 19:43 | HISTORY & PHYSICAL EXAMINATION ---
Chief Complaint - Chief Complaint Chief Complaint: Abdominal pain History of Present Illness - Admitted From Admitted From:: Home - History Obtained From Records Reviewed: Yes History obtained from: Patient, ER Physician, EMR - History of Present Illness HPI Comment/Other: This is a 65-year-old male with a past medical history significant for coronary artery disease, ulcerative colitis, hypertension who presents today complaining of worsening abdominal pain. He had just been discharged 2 days ago after being treated for C. difficile colitis and diverticulitis at our facility. He was discharged on oral vancomycin as well as ciprofloxacin and Flagyl. He states he had been doing well yesterday but today he developed worsening lower quadrant abdominal pain. This would radiate to his bilateral flanks and also the tip of his penis. He reports no fevers or chills. He felt nauseous and vomited this morning. Denies any blood in his vomit. Denies any diarrhea or constipation. Also denies any blood in his stool. He also denies dysuria, urgency, hematuria. He reports compliance with his antibiotics on discharge. In the emergency department, he is found to be afebrile in the picture of 36.8 C. His heart rate was 87. Blood pressure was 155/88. He was not tachypneic and was saturating well on room air. Labs were significant for a white count of 14.7. His potassium was also 3.0. CT of the abdomen and pelvis was obtained which showed worsening sigmoid diverticulitis with a contained perforation. No obvious abscess. There is also note of more generalized colitis. Given the above findings, medicine was consulted for admission. He did receive IV Zosyn in the emergency department. I did discuss goals of care with the patient and he would like to be a full code. History - Past Medical History Cardiovascular: reports: Hypertension, High cholesterol, Coronary artery disease, [place] Respiratory: reports: None Neuro: reports: Head injury Endocrine/Autoimmune: reports: None GI: reports: Diverticulitis, Ulcerative colitis : reports: Benign prostate hypertrophy HEENT: reports: None Psych: reports: None Musculoskeletal: reports: None Derm: reports: None MRSA Hx?: No - Past Surgical History Cardiovascular: reports: Coronary stent - Family & Social History Family History Comment/Other: His father passed with age 58 from a myocardial infarction. He reports no other family history. Living arrangement: At home Living Situation: With spouse/s.o. Social History Notes: He lives at home with his . He reports occasional alcohol use on social basis. He has not smoked in about 28 years. He previously smoked a pack a day for about 3 to 4 years. 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 - POLST Patient has POLST: No POLST Status: Full Code Meds/Allgy - Home Medications Home Medications: Ambulatory Orders Medication Instructions Recorded Confirmed Aspirin EC [Ecotrin] 325 mg PO DAILY 03/18/20 03/18/20 Carvedilol 12.5 mg PO DAILY 03/18/20 03/18/20 Cetirizine [ZyrTEC] 10 mg PO DAILY 03/18/20 03/18/20 Ezetimibe [Zetia] 10 mg PO DAILY 03/18/20 03/18/20 Gabapentin [Neurontin] 300 mg PO DAILY 03/18/20 03/18/20 Mesalamine [Delzicol] 400 mg PO DAILY 03/18/20 03/18/20 Omeprazole 20 mg PO DAILY 03/18/20 03/18/20 Rosuvastatin Calcium [Crestor] 5 mg PO DAILY 03/18/20 03/18/20 amLODIPine [Norvasc] 5 mg PO DAILY 03/18/20 03/18/20 Ciprofloxacin [Cipro] 500 mg PO BID #8 ml 03/19/20 Saccharomyces Boulardii [Florastor] 250 mg PO BIDWM #16 capsule 03/19/20 Vancomycin [Vancocin] 125 mg PO QID #32 capsule 03/19/20 metroNIDAZOLE [Flagyl] 500 mg PO TID #12 tablet 03/19/20 - Allergies Allergies/Adverse Reactions: Allergies Allergy/AdvReac Type Severity Reaction Status Date / Time No Known Drug Allergies Allergy Verified 03/22/20 17:36 Review of Systems - Constitutional Constitutional: reports: Poor appetite. denies: Fatigue, Fever, Chills, Weakness - Ears, Nose & Throat Ears, Nose & Throat: denies: Sore throat - Cardiovascular Cariovascular: denies: Chest pain, Exertional dyspnea, Decr. exercise tolerance - Respiratory Respiratory: denies: SOB at rest, SOB with exertion - Gastrointestinal Gastrointestinal: reports: Abdominal pain, Nausea, Vomiting, Bloating, Poor appetite. denies: Diarrhea, Rectal bleeding, Black stools, Bloody stools - Genitourinary Genitourinary: denies: Dysuria, Frequency, Urgency, Hematuria, Flank pain - Musculoskeletal Musculoskeletal: denies: Muscle pain, Limited range of motion - Integumentary Integumentary: denies: Rash - Neurological Neurological: denies: General weakness, Focal weakness, Dizziness - Hematologic/Lymphatic Hematologic/Lymphatic: denies: Anemia, Bleeding tendencies - All Other Systems All Other Systems: reports: Reviewed and negative Prior Level of Functionality: He is independent with his ADL's. Exam - Vital Signs Reviewed Vital Signs: Yes Vital Signs: Vital Signs x48h Temp Pulse Resp BP Pulse Ox 03/22/20 17:30 87 18 142/78 H 96 03/22/20 17:28 36.8 C 87 20 155/88 H 99 - Physical Exam General Appearance: positive: No acute distress, Alert Eyes Bilateral: positive: Normal inspection, Conjunctivae nml ENT: positive: ENT inspection nml Neck: positive: Nml inspection Respiratory: positive: No respiratory distress. negative: Wheezes, Rales Cardiovascular: positive: Regular rate & rhythm, Extrasystoles. negative: Irregularly irregular, Tachycardia, Systolic murmur Abdomen: positive: Nml bowel sounds, No distention, Tenderness (Predominantly over the left lower quadrant, suprapubic region, right lower quadrant.). negati ve: Non-tender, Guarding, Rebound, Abnml bowel sounds Skin: positive: Warm, Dry Extremities: positive: Full ROM, No pedal edema Neurologic/Psychiatric: positive: Oriented x3, Motor nml. negative: Disoriented to person, Disoriented to place, Disoriented to time Conclusion/Plan - Problem List (1) Perforation of intestine due to diverticulitis of gastrointestinal tract Conclusion/Plan: He had initially failed outpatient treatment with Augmentin for 10 days and was hospitalized just last week for diverticulitis after failure of outpatient man agement. He had improved on ciprofloxacin and Flagyl and discharged but presents again with worsening abdominal pain and found of a contained perforation on imaging. No identifiable abscess. His white count has increased to 14 from 7.8 on discharge. He does not appear septic at this time. We will continue him on Zosyn IV. N.p.o. IV fluids with D5/half-normal. Pain control with morphine and oxycodone as needed. General surgery consult. (2) C. difficile colitis Conclusion/Plan: He was diagnosed with C. difficile on March 17 and started on oral vancomycin. CT today shows worsening sigmoid diverticulitis with a contained perforation but there is also more generalized colitis. This currently appears to be nonsevere C. difficile and so we will keep him on oral vancomycin 125 mg 4 times a day. If his white count begins to rise or his renal function will increase the vancomycin to 5 mg 4 times a day and start Flagyl IV as well. (3) Ulcerative colitis Conclusion/Plan: He has a history of ulcerative colitis for which she is on Entyvio. He follows with Dr. Jasmin Garcia of gastroenterology. Suspect the colitis on imaging is likely due to C. difficile and diverticulitis. We will continue with IV antibiotics as mentioned above in addition to oral vancomycin. Qualifiers: Ulcerative colitis location: unspecified ulcerative colitis location Digestive disease complication type: unspecified complication Qualified Code(s): K51.919 - Ulcerative colitis, unspecified with unspecified complications (4) Hypokalemia Conclusion/Plan: Potassium is decreased at 3.0. We will replace this intravenously and his IV fluids. Recheck in the morning. (5) Hypertension Conclusion/Plan: He is on amlodipine and carvedilol at home. He is currently hypertensive with systolic in the 140s to 150s. We will resume his home medications in the morning. - Lab Results Lab results reviewed: Yes Fish Bones: 03/22/20 17:54 03/22/20 17:54 - Diagnostic Imaging Results Diagnostic Imaging Results: positive: Final report reviewed Core Measures - Anticipated LOS I expect patient to be DC'd or transferred within 96 hours.: Yes - Issues Hospital Issues and Management Plan: 65-year-old male with history of ulcerative colitis who was recently admitted for diverticulitis and C. difficile colitis presents again with worsening pain found to have a contained perforation on imaging. We will admit for IV antibiotics make him n.p.o. General surgery consult. We will continue oral vancomycin for his history of C. difficile. - DVT/VTE - Prophylaxis VTE/DVT Device ordered at admit?: Yes VTE/DVT Prophylaxis med ordered at admit?: Yes
[2020-03-22] MEDS ORDERED: POTASSIUM CHLORIDE 20 MEQ TABLET PO ONE (21:26)
[2020-03-22] MEDS: D5.45NS W/20 MEQ KCL 1,000 ML IV SCH (22:21)
[2020-03-22] MEDS: VANCOMYCIN 125 MG CAPSULE PO SCH (22:25)
[2020-03-22] MEDS: PIPERACILLIN/TAZOBACTAM 3.375 GM in SODIUM CHLORIDE 0.9% MINIBAG 100 ML IV SCH (23:02)
[2020-03-22] MEDS: oxyCODONE 5 MG TABLET PO PRN (23:02)
[2020-03-23] MEDS: ONDANSETRON 4 MG/2 ML VIAL IVP PRN ×3 (01:03→20:11)
[2020-03-23] MEDS: SODIUM CHLORIDE FLUSH 0.9% 10 ML SYRINGE IVP SCH ×3 (01:04→17:26)
[2020-03-23] MEDS: MORPHINE 2 MG/ML CARPUJECT IVP PRN ×4 (01:04→20:13)
[2020-03-23 05:23] LABS: BASOPHILS # (AUTO) 0.1 10^3/uL (0.0-0.1); BASOPHILS % (AUTO) 0.5 %; EOSINOPHILS # (AUTO) 0.1 10^3/uL (0.0-0.7); EOSINOPHILS % (AUTO) 0.5 %; HGB - HEMOGLOBIN 12.9 g/dL (14.0-18.0); LYMPHOCYTES # (AUTO) 2.1 10^3/uL (1.5-3.5); LYMPHOCYTES % (AUTO) 16.8 %; MEAN CORPUSCULAR HEMOGLOBIN 36.2 pg (27.0-31.0); MEAN CORPUSCULAR HGB CONC 34.1 g/dL (32.0-36.0); MEAN CORPUSCULAR VOLUME 106.2 fL (80.0-94.0); MEAN PLATELET VOLUME 8.5 fL (7.4-11.4); MONOCYTES # (AUTO) 1.4 10^3/uL (0.0-1.0); MONOCYTES % (AUTO) 11.5 %; NEUTROPHILS # (AUTO) 8.7 10^3/uL (1.5-6.6); NEUTROPHILS % (AUTO) 70.1 %; PLT - PLATELET COUNT 395 10^3/uL (130-450); RED BLOOD COUNT 3.56 10^6/uL (4.70-6.10); RED CELL DISTRIBUTION WIDTH 12.8 % (12.0-15.0); WHITE BLOOD COUNT 12.4 x10^3/uL (4.8-10.8)
[2020-03-23 05:38] LABS: CALCIUM 8.1 mg/dL (8.5-10.3); MAGNESIUM 1.5 mg/dL (1.7-2.8)
[2020-03-23] MEDS: PIPERACILLIN/TAZOBACTAM 3.375 GM in SODIUM CHLORIDE 0.9% MINIBAG 100 ML IV SCH ×3 (07:22→22:43)
[2020-03-23] MEDS: D5.45NS W/20 MEQ KCL 1,000 ML IV SCH ×2 (07:23→17:27)
[2020-03-23] MEDS: VANCOMYCIN 125 MG CAPSULE PO SCH ×4 (09:13→21:29)
[2020-03-23] MEDS: oxyCODONE 5 MG TABLET PO PRN (09:13)
[2020-03-23] MEDS: ENOXAPARIN 40 MG/0.4 ML SYRINGE SUBQ SCH (09:14)
[2020-03-23] MEDS: metroNIDAZOLE 500 MG/100 ML 500 MG/100 ML BAG IV SCH ×2 (09:23→17:25)
[2020-03-23] MEDS: diphenhydrAMINE 25 MG CAPSULE PO PRN ×2 (14:59→21:31)
--- NOTE | 2020-03-23 16:15 | PROVIDER PROGRESS NOTE ---
Assessment/Plan - Problem List (1) Perforation of intestine due to diverticulitis of gastrointestinal tract Assessment/Plan: Surgeon already saw the patient, recommended no surgery now, watch patient closely, continue antibiotics Zosyn, surgeon recommendation add Flagyl, continue PO vancomycin for C. difficile, start with clear diet, advance as tolerated. (2) C. difficile colitis Conclusion/Plan: WBC is slightly trended down,Patient report abdominal pain is better, We will continue vancomycin 4 times PO per day, add intravenous Flagyl (3) Ulcerative colitis Conclusion/Plan: continue antibiotics with IV and PO vancomycin for C.Diff. He has a history of ulcerative colitis for which she is on Entyvio. He follows with Dr. Jasmin Garcia of gastroenterology. (4) Hypokalemia resolved (5) Hypertension stable, will continue home meds after confirmed by pharmacy - Current Meds Current Meds: Current Medications Generic Name Dose Route Start Last Admin Trade Name Freq PRN Reason Stop Dose Admin Diphenhydramine HCl 25 mg 03/23/20 13:35 03/23/20 14:59 Benadryl PO 25 mg Q4HR PRN Administration Allergy Symptoms Enoxaparin Sodium 40 mg 03/23/20 09:00 03/23/20 09:14 Lovenox SUBQ 40 mg DAILY ESEQUIEL Administration Potassium Chloride/Dextrose/Sod Cl 1,000 mls @ 100 mls/hr 03/22/20 20:00 03/23/20 10:25 D5.45ns W/20 Meq Kcl IV 100 mls/hr .Q10H ESEQUIEL Infusion Piperacillin Sod/Tazobactam 100 mls @ 25 mls/hr 03/22/20 23:00 03/23/20 15:02 Sod 3.375 gm/ Sodium Chloride IV 25 mls/hr Q8H ESEQUIEL Administration Metronidazole 500 mg in 100 mls @ 100 mls/hr 03/23/20 09:00 03/23/20 10:25 Flagyl 500 Mg/100 Ml IV Infused Q8H ESEQUIEL Infusion Morphine Sulfate 2 mg 03/22/20 19:31 03/23/20 11:30 Morphine (Carpuject) IVP 2 mg Q2HR PRN Administration Pain 8 to 10 Ondansetron HCl 4 mg 03/22/20 19:31 03/23/20 09:14 Zofran Inj IVP 4 mg Q6HR PRN Administration Nausea / Vomiting Oxycodone HCl 5 mg 03/22/20 19:31 03/23/20 09:13 Roxicodone PO 5 mg Q4HR PRN Administration Pain 5 to 7 Sodium Chloride 10 ml 03/23/20 01:00 03/23/20 09:14 Normal Saline Flush 0.9% IVP 10 ml 0100,0900,1700 ESEQUIEL Administration Vancomycin HCl 125 mg 03/22/20 21:00 03/23/20 13:10 Vancocin PO 125 mg QID ESEQUIEL Administration - Lab Result Fish Bone Diagrams: 03/23/20 05:06 03/23/20 05:06 - Additional Planning My Orders: My Active Orders 03/23/20 09:00 metroNIDAZOLE 500 MG/100 ML [Flagyl 500 mg/100 ml] 500 mg in 100 ml IV Q8H 03/23/20 Lunch Clear Liquid Diet [DIET] 03/23/20 13:35 diphenhydrAMINE [Benadryl] 25 mg PO Q4HR PRN 03/23/20 17:00 Saccharomyces Boulardii [Florastor] 500 mg PO BIDWM Subjective - Subjective Patient Reports: Feeling Better Objective Vital Signs: Vital Signs - 24 hr 03/22/20 03/22/20 03/22/20 17:28 17:30 19:36 Temperature 36.8 C Heart Rate 87 87 75 Heart Rate [ Brachial] Respiratory 20 18 19 Rate Blood Pressure 155/88 H 142/78 H 141/98 H Blood Pressure [Left Brachial artery] O2 Saturation 99 96 97 03/22/20 03/22/20 03/23/20 21:00 21:46 01:22 Temperature 37.2 C 36.9 C Heart Rate 71 Heart Rate [ 76 67 Brachial] Respiratory 20 18 16 Rate Blood Pressure 100/73 Blood Pressure 120/77 97/71 [Left Brachial artery] O2 Saturation 94 95 94 03/23/20 03/23/20 03/23/20 05:00 08:07 10:25 Temperature 37.0 C 37.0 C Heart Rate 103 H Heart Rate [ 60 103 H Brachial] Respiratory 18 18 18 Rate Blood Pressure Blood Pressure 97/62 106/64 [Left Brachial artery] O2 Saturation 93 95 95 03/23/20 11:34 Temperature 37 C Heart Rate Heart Rate [ 69 Brachial] Respiratory 17 Rate Blood Pressure Blood Pressure 107/74 [Left Brachial artery] O2 Saturation 92 Oxygen O2 Source Room air I&O (Last 24 Hrs): Intake and Output Totals x24h 03/21/20 03/22/20 03/23/20 23:59 23:59 23:59 Intake Total 400 1403.333 Output Total 0 Balance 400 1403.333 General: Alert, Oriented x3, No acute distress HEENT: Atraumatic Neck: Supple Lymphatic: no adenopathy Neuro: Alert, Non Focal, Oriented Times 3 Cardiovascular: Regular rate, Normal S1, Normal S2 Respiratory: Chest non-tender, No respiratory distress, Breath sounds nml Abdomen: Normal bowel sounds, Soft Extremities: Normal pulses - Results Results: Laboratory Results WBC 12.4 x10^3/uL (4.8-10.8) H 03/23/20 05:06 RBC 3.56 10^6/uL (4.70-6.10) L 03/23/20 05:06 Hgb 12.9 g/dL (14.0-18.0) L 03/23/20 05:06 Hct 37.8 % (42.0-52.0) L 03/23/20 05:06 MCV 106.2 fL (80.0-94.0) H 03/23/20 05:06 MCH 36.2 pg (27.0-31.0) H 03/23/20 05:06 MCHC 34.1 g/dL (32.0-36.0) 03/23/20 05:06 RDW 12.8 % (12.0-15.0) 03/23/20 05:06 Plt Count 395 10^3/uL (130-450) 03/23/20 05:06 MPV 8.5 fL (7.4-11.4) 03/23/20 05:06 Neut # (Auto) 8.7 10^3/uL (1.5-6.6) H 03/23/20 05:06 Lymph # (Auto) 2.1 10^3/uL (1.5-3.5) 03/23/20 05:06 [place] # (Auto) 1.4 10^3/uL (0.0-1.0) H 03/23/20 05:06 Eos # (Auto) 0.1 10^3/uL (0.0-0.7) 03/23/20 05:06 Baso # (Auto) 0.1 10^3/uL (0.0-0.1) 03/23/20 05:06 Absolute Nucleated RBC 0.00 x10^3/uL 03/23/20 05:06 Nucleated RBC % 0.0 /100WBC 03/23/20 05:06 Sodium 137 mmol/L (135-145) 03/23/20 05:06 Potassium 3.5 mmol/L (3.5-5.0) 03/23/20 05:06 Chloride 105 mmol/L (101-111) 03/23/20 05:06 Carbon Dioxide 25 mmol/L (21-32) 03/23/20 05:06 Anion Gap 7.0 (6-13) 03/23/20 05:06 BUN 8 mg/dL (6-20) 03/23/20 05:06 Creatinine 1.0 mg/dL (0.6-1.2) 03/23/20 05:06 Estimated GFR (MDRD) 75 (>89) L 03/23/20 05:06 Glucose 142 mg/dL (70-100) H 03/23/20 05:06 Calcium 8.1 mg/dL (8.5-10.3) L 03/23/20 05:06 Phosphorus 4.0 mg/dL (2.5-4.6) 03/23/20 05:06 Magnesium 1.5 mg/dL (1.7-2.8) L 03/23/20 05:06 Total Bilirubin 0.5 mg/dL (0.2-1.0) 03/22/20 17:54 AST 56 IU/L (10-42) H 03/22/20 17:54 ALT 28 IU/L (10-60) 03/22/20 17:54 Alkaline Phosphatase 96 IU/L (42-121) 03/22/20 17:54 Total Protein 6.6 g/dL (6.7-8.2) L 03/22/20 17:54 Albumin 3.5 g/dL (3.2-5.5) 03/22/20 17:54 Globulin 3.1 g/dL (2.1-4.2) 03/22/20 17:54 Albumin/Globulin Ratio 1.1 (1.0-2.2) 03/22/20 17:54 Lipase 40 U/L (22-51) 03/22/20 17:54 Ethyl Alcohol < 5.0 mg/dL 03/22/20 17:54 ABX Reporting Has patient been on IV antibiotics over the past 48 hours?: Yes Current Medications - Current Medications Current Medications: Active Medications Acetaminophen (Tylenol) 650 mg PO Q4HR PRN PRN Reason: Pain 1 to 4 Diphenhydramine HCl (Benadryl) 25 mg PO Q4HR PRN PRN Reason: Allergy Symptoms Last Admin: 03/23/20 14:59 Dose: 25 mg Documented by: Enoxaparin Sodium (Lovenox) 40 mg SUBQ DAILY [facility] Last Admin: 03/23/20 09:14 Dose: 40 mg Documented by: Potassium Chloride/Dextrose/Sod Cl (D5.45ns W/20 Meq Kcl) 1,000 mls @ 100 mls/hr IV .Q10H [facility] Last Admin: 03/23/20 17:27 Dose: 100 mls/hr Documented by: Piperacillin Sod/Tazobactam (Sod 3.375 gm/ Sodium Chloride) 100 mls @ 25 mls/hr IV Q8H [facility] Last Admin: 03/23/20 15:02 Dose: 25 mls/hr Documented by: Metronidazole (Flagyl 500 Mg/100 Ml) 500 mg in 100 mls @ 100 mls/hr IV Q8H [facility] Last Admin: 03/23/20 17:25 Dose: 100 mls/hr Documented by: Morphine Sulfate (Morphine (Carpuject)) 2 mg IVP Q2HR PRN PRN Reason: Pain 8 to 10 Last Admin: 03/23/20 11:30 Dose: 2 mg Documented by: Ondansetron HCl (Zofran Inj) 4 mg IVP Q6HR PRN PRN Reason: Nausea / Vomiting Last Admin: 03/23/20 09:14 Dose: 4 mg Documented by: Ondansetron HCl (Zofran Odt) 4 mg TL Q6HR PRN PRN Reason: Nausea / Vomiting Oxycodone HCl (Roxicodone) 5 mg PO Q4HR PRN PRN Reason: Pain 5 to 7 Last Admin: 03/23/20 09:13 Dose: 5 mg Documented by: Saccharomyces Boulardii (Florastor) 500 mg PO BIDWM [facility] Last Admin: 03/23/20 17:26 Dose: 500 mg Documented by: Sodium Chloride (Normal Saline Flush 0.9%) 10 ml IVP PRN PRN PRN Reason: NEEDED PER PROVIDER ORDERS Sodium Chloride (Normal Saline Flush 0.9%) 10 ml IVP 0100,0900,1700 [facility] Last Admin: 03/23/20 17:26 Dose: 10 ml Documented by: Vancomycin HCl (Vancocin) 125 mg PO QID [facility] Last Admin: 03/23/20 17:26 Dose: 125 mg Documented by: Aspirin EC [Ecotrin] 325 mg PO DAILY 03/18/20 Carvedilol 12.5 mg PO DAILY 03/18/20 Cetirizine [ZyrTEC] 10 mg PO DAILY 03/18/20 Ezetimibe [Zetia] 10 mg PO DAILY 03/18/20 Gabapentin [Neurontin] 300 mg PO DAILY 03/18/20 Mesalamine [Delzicol] 400 mg PO DAILY 03/18/20 Omeprazole 20 mg PO DAILY 03/18/20 Rosuvastatin Calcium [Crestor] 5 mg PO DAILY 03/18/20 amLODIPine [Norvasc] 5 mg PO DAILY 03/18/20
[2020-03-23] MEDS: SACCHAROMYCES BOULARDII 250 MG CAPSULE PO SCH (17:26)
--- NOTE | 2020-03-23 18:51 | PHARMACY PROGRESS NOTE ---
- Best Possible Medication History Admit Date and Time: 03/22/201930 Processed by: Pharmacy Medication History completed: Yes Patient Interview: Pt unable to participate Secondary Source(s): Insurance records (DISCHARGE REPORT FROM 4 DAYS AGO AGREE WITH SYSTEM & INSURANCE DATA), Previous admit records As the person ultimately responsible for medication therapy, providers are able to order a medication from an existing home medication list in [facility] via the "Reconcile Routine" prior to Confirmation of that medication by client support administrator. Such practice is discouraged except when the physician, in their clinical judgment, deems that a medical need exists for a medication without regard to previous use.
--- NOTE | 2020-03-23 19:11 | CONSULTATION NOTE ---
Referring Provider Name of Referring Provider:: Tompkins Consult Date: 03/23/20 Chief Complaint - Chief Complaint Chief Complaint: Abdominal pain History of Present Illness - Admitted From Admitted From:: ED - History Obtained From Records Reviewed: Prior admissions, Provider documentation History obtained from: Patient and providers Exam Limitations: None - History of Present Illness HPI Comment/Other: Wonderful 65 year old gentleman who has a history of ulcerative colitis followed and managed by Dr. Garcia. He was started on Entyvio 8 weeks ago and has received only one dose so for. He developed acute lower abdominal pain approximately 4 weeks ago and was diagnosed with diverticulitis. He was treated as an outpatient with Augmentin but continue to deteriorate and was subsequently admitted to the hospital. He also developed c.diff colitis. He was treated with Cipro, Flagyl and oral Vancomycin and seemed to begin to improve. Throughout this time he continued po mesalamine. He developed acute abdominal pain last evening and presented to the ED. CT revealed a contained sigmoid perforation and leukocytosis. He was readmitted and started on Zosyn, Flagyl and oral Vancomycin. He reports that he remains uncomfortable. History - Past Medical History Cardiovascular: reports: Hypertension, High cholesterol, Coronary artery disease, [place] Respiratory: reports: None Neuro: reports: Head injury Endocrine/Autoimmune: reports: None GI: reports: Diverticulitis, Ulcerative colitis : reports: Benign prostate hypertrophy HEENT: reports: None Psych: reports: None Musculoskeletal: reports: None Derm: reports: None MRSA Hx?: No - Past Surgical History Cardiovascular: reports: Coronary stent - Family & Social History Family History: Father: [place] ( at age 63) Family History Comment/Other: His father passed with age 58 from a myocardial infarction. He reports no other family history. Living arrangement: At home Living Situation: With spouse/s.o. Social History Notes: He lives at home with his . He reports occasional alcohol use on social basis. He has not smoked in about 28 years. He previously smoked a pack a day for about 3 to 4 years. 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 - POLST Patient has POLST: No POLST Status: Full Code Meds/Allgy - Home Medications Home Medications: Ambulatory Orders Medication Instructions Recorded Confirmed Aspirin EC [Ecotrin] 325 mg PO DAILY 03/18/20 03/23/20 Carvedilol 12.5 mg PO DAILY 03/18/20 03/23/20 Cetirizine [ZyrTEC] 10 mg PO DAILY 03/18/20 03/23/20 Ezetimibe [Zetia] 10 mg PO DAILY 03/18/20 03/23/20 Gabapentin [Neurontin] 300 mg PO DAILY 03/18/20 03/23/20 Mesalamine [Delzicol] 400 mg PO DAILY 03/18/20 03/23/20 Omeprazole 20 mg PO DAILY 03/18/20 03/23/20 Rosuvastatin Calcium [Crestor] 5 mg PO DAILY 03/18/20 03/23/20 amLODIPine [Norvasc] 5 mg PO DAILY 03/18/20 03/23/20 Ciprofloxacin HCl [Cipro] 500 mg PO BID 03/23/20 03/23/20 Metronidazole 500 mg PO TID 03/23/20 03/23/20 Saccharomyces Boulardii [Daily 250 mg PO BID 03/23/20 03/23/20 Probiotic] Vancomycin [Vancocin] 125 mg PO QID 03/23/20 03/23/20 - Allergies Allergies/Adverse Reactions: Allergies Allergy/AdvReac Type Severity Reaction Status Date / Time No Known Drug Allergies Allergy Verified 03/22/20 17:36 Exam - Vital Signs Reviewed Vital Signs: Yes Vital Signs: Vital Signs x48h Temp Pulse Resp BP Pulse Ox 03/23/20 16:34 37.2 C 74 18 125/78 93 03/23/20 11:34 37 C 69 17 107/74 92 - Physical Exam General Appearance: positive: Alert, Mild distress Eyes Bilateral: positive: Normal inspection, PERRL, EOMI Abdomen: positive: Nml bowel sounds, Tenderness, Guarding, Rebound. negative: Mass Skin: positive: Color nml Conclusion and Plan - Lab Results Laboratory Results 03/23/20 05:06: Sodium 137, Potassium 3.5, Chloride 105, Carbon Dioxide 25, Anion Gap 7.0, BUN 8, Creatinine 1.0, Estimated GFR (MDRD) 75 L, Glucose 142 H, Calcium 8.1 L, Phosphorus 4.0, Magnesium 1.5 L 03/23/20 05:06: WBC 12.4 H, RBC 3.56 L, Hgb 12.9 L, Hct 37.8 L, MCV 106.2 H, MCH 36.2 H, MCHC 34.1, RDW 12.8, Plt Count 395, MPV 8.5, Neut # (Auto) 8.7 H, Lymph # (Auto) 2.1, [place] # (Auto) 1.4 H, Eos # (Auto) 0.1, Baso # (Auto) 0.1, Absolute Nucleated RBC 0.00, Nucleated RBC % 0.0 03/22/20 17:54: Sodium 138, Potassium 3.0 L, Chloride 106, Carbon Dioxide 23, Anion Gap 9.0, BUN 8, Creatinine 1.0, Estimated GFR (MDRD) 75 L, Glucose 131 H, Calcium 8.6, Total Bilirubin 0.5, AST 56 H, ALT 28, Alkaline Phosphatase 96, Total Protein 6.6 L, Albumin 3.5, Globulin 3.1, Albumin/Globulin Ratio 1.1, Lipase 40, Ethyl Alcohol < 5.0 03/22/20 17:54: WBC 14.7 H, RBC 3.94 L, Hgb 14.2, Hct 40.9 L, MCV 103.8 H, MCH 36.0 H, MCHC 34.7, RDW 12.3, Plt Count 428, MPV 8.8, Neut # (Auto) 11.6 H, Lymph # (Auto) 1.5, [place] # (Auto) 1.3 H, Eos # (Auto) 0.1, Baso # (Auto) 0.1, Absolute Nucleated RBC 0.00, Nucleated RBC % 0.0 - Diagnostic Imaging Results Diagnostic Imaging Results: positive: Final report reviewed Diagnostic Imaging Results Comments: As per HPI - sigmoid inflammation with contained perforation - Diagnosis Diagnosis: Ulcerative with acute exacerbation and c. diff colitis - Plan Plan: A review of the literature reveals the finding of true diverticulits in patients with ulcerative colitis is relatively rare. The underlying disease process ie. inflammatory bowel disease is essentially always involved. It is also clear from the literature that it is safe to resume steroids after 48 hours of targeted c.diff therapy in patients with acute exacerbation and c.diff. I recommended continuing Vanc, zosyn, and flagyl, and adding methylprednisolone fo r treatment of the underlying inflammation. It may also be useful to confer with Dr. Garcia. I will continue to follow with you
[2020-03-23] MEDS: methylPREDNISolone SUCCINATE 40 MG/ML VIAL IVP SCH (21:29)
[2020-03-24] MEDS: SODIUM CHLORIDE FLUSH 0.9% 10 ML SYRINGE IVP SCH ×3 (01:19→16:57)
[2020-03-24] MEDS: metroNIDAZOLE 500 MG/100 ML 500 MG/100 ML BAG IV SCH ×3 (01:29→16:56)
[2020-03-24 05:38] LABS: BASOPHILS % (AUTO) 0.2 %; HGB - HEMOGLOBIN 12.5 g/dL (14.0-18.0); LYMPHOCYTES # (AUTO) 0.7 10^3/uL (1.5-3.5); LYMPHOCYTES % (AUTO) 8.2 %; MEAN CORPUSCULAR HEMOGLOBIN 34.9 pg (27.0-31.0); MEAN CORPUSCULAR VOLUME 105.9 fL (80.0-94.0); MEAN PLATELET VOLUME 8.9 fL (7.4-11.4); MONOCYTES # (AUTO) 0.2 10^3/uL (0.0-1.0); NEUTROPHILS # (AUTO) 7.2 10^3/uL (1.5-6.6); NEUTROPHILS % (AUTO) 89.1 %; PLT - PLATELET COUNT 371 10^3/uL (130-450); RED BLOOD COUNT 3.58 10^6/uL (4.70-6.10); RED CELL DISTRIBUTION WIDTH 12.5 % (12.0-15.0)
[2020-03-24 05:50] LABS: CALCIUM 8.3 mg/dL (8.5-10.3); CREATININE 0.9 mg/dL (0.6-1.2); MAGNESIUM 1.4 mg/dL (1.7-2.8); PHOSPHORUS 2.9 mg/dL (2.5-4.6)
[2020-03-24] MEDS: PIPERACILLIN/TAZOBACTAM 3.375 GM in SODIUM CHLORIDE 0.9% MINIBAG 100 ML IV SCH ×3 (06:22→23:15)
[2020-03-24] MEDS: D5.45NS W/20 MEQ KCL 1,000 ML IV SCH ×3 (06:22→21:13)
[2020-03-24] MEDS ORDERED: MAGNESIUM SULFATE 1 GM in SODIUM CHLORIDE 0.9% 50 ML IV ONE (08:30)
[2020-03-24] MEDS: MAGNESIUM OXIDE 400 MG TABLET PO SCH (09:18)
[2020-03-24] MEDS: VANCOMYCIN 125 MG CAPSULE PO SCH ×4 (09:19→21:11)
[2020-03-24] MEDS: GABAPENTIN 300 MG CAPSULE PO SCH (09:19)
[2020-03-24] MEDS: SACCHAROMYCES BOULARDII 250 MG CAPSULE PO SCH ×2 (09:26→16:56)
[2020-03-24] MEDS: ENOXAPARIN 40 MG/0.4 ML SYRINGE SUBQ SCH (09:27)
[2020-03-24] MEDS: methylPREDNISolone SUCCINATE 40 MG/ML VIAL IVP SCH ×2 (09:29→21:12)
[2020-03-24] MEDS: carvediloL 12.5 MG TABLET PO SCH ×2 (09:29→21:12)
--- NOTE | 2020-03-24 12:49 | PROVIDER PROGRESS NOTE ---
Assessment/Plan - Problem List (1) Perforation of intestine due to diverticulitis of gastrointestinal tract Assessment/Plan: Patient feels better today, he reported he abdominal pain is good control, He denies fever, nausea vomiting, he report his diarrhea is controlled. He request advance his diet. Patient WBC became normal on today. Continue antibiotics Zosyn and Flagyl, Follow-up with your surgeon. Surgeon already saw the patient, recommended no surgery now, watch patient closely, continue antibiotics Zosyn, surgeon recommendation add Flagyl, continue PO vancomycin for C. difficile, start with clear diet, advance as tolerated. (2) C. difficile colitis Patient deny diarrhea any more. Patient has 2 days left for oral vancomycin. (3) Ulcerative colitis Patient has history of ulcerative colitis, patient follows with GI physician Dr. Nicholson. Dr. Maza reveals the case, add steroid to control the inflammation. Patient reported he felt better and abdominal pain control, it seems working for patient. (4) Hypokalemia resolved (5) Hypertension stable, will continue home meds after confirmed by pharmacy - Current Meds Current Meds: Current Medications Generic Name Dose Route Start Last Admin Trade Name Freq PRN Reason Stop Dose Admin Carvedilol 12.5 mg 03/24/20 09:00 03/24/20 09:29 Coreg PO 12.5 mg BID ESEQUIEL Administration Diphenhydramine HCl 25 mg 03/23/20 13:35 03/23/20 21:31 Benadryl PO 25 mg Q4HR PRN Administration Allergy Symptoms Enoxaparin Sodium 40 mg 03/23/20 09:00 03/24/20 09:27 Lovenox SUBQ 40 mg DAILY ESEQUIEL Administration Gabapentin 300 mg 03/24/20 09:00 03/24/20 09:19 Neurontin PO 300 mg DAILY ESEQUIEL Administration Potassium Chloride/Dextrose/Sod Cl 1,000 mls @ 100 mls/hr 03/22/20 20:00 03/24/20 06:22 D5.45ns W/20 Meq Kcl IV 100 mls/hr .Q10H ESEQUIEL Administration Piperacillin Sod/Tazobactam 100 mls @ 25 mls/hr 03/22/20 23:00 03/24/20 11:58 Sod 3.375 gm/ Sodium Chloride IV Infused Q8H ESEQUIEL Infusion Metronidazole 500 mg in 100 mls @ 100 mls/hr 03/23/20 09:00 03/24/20 11:59 Flagyl 500 Mg/100 Ml IV Infused Q8H ESEQUIEL Infusion Magnesium Oxide 400 mg 03/24/20 08:00 03/24/20 09:18 Mag Ox PO 400 mg DAILYWM ESEQUIEL Administration Methylprednisolone 40 mg 03/23/20 21:00 03/24/20 09:29 Solu-Medrol (40mg Vial) IVP 40 mg BID ESEQUIEL Administration Morphine Sulfate 2 mg 03/22/20 19:31 03/23/20 20:13 Morphine (Carpuject) IVP 2 mg Q2HR PRN Administration Pain 8 to 10 Ondansetron HCl 4 mg 03/22/20 19:31 03/23/20 20:11 Zofran Inj IVP 4 mg Q6HR PRN Administration Nausea / Vomiting Oxycodone HCl 5 mg 03/22/20 19:31 03/23/20 09:13 Roxicodone PO 5 mg Q4HR PRN Administration Pain 5 to 7 Saccharomyces Boulardii 500 mg 03/23/20 17:00 03/24/20 09:26 Florastor PO 500 mg BIDWM ESEQUIEL Administration Sodium Chloride 10 ml 03/22/20 19:31 03/24/20 09:30 Normal Saline Flush 0.9% IVP 10 ml PRN PRN Administration NEEDED PER PROVIDER ORDERS Sodium Chloride 10 ml 03/23/20 01:00 03/24/20 09:30 Normal Saline Flush 0.9% IVP Not Given 0100,0900,1700 ESEQUIEL Vancomycin HCl 125 mg 03/22/20 21:00 03/24/20 09:19 Vancocin PO 125 mg QID ESEQUIEL Administration - Lab Result Fish Bone Diagrams: 03/24/20 05:14 03/24/20 05:14 - Additional Planning My Orders: My Active Orders 03/23/20 13:35 diphenhydrAMINE [Benadryl] 25 mg PO Q4HR PRN 03/23/20 17:00 Saccharomyces Boulardii [Florastor] 500 mg PO BIDWM 03/24/20 09:00 Gabapentin [Neurontin] 300 mg PO DAILY carvediloL [Coreg] 12.5 mg PO BID 03/24/20 Lunch Full Liquid Diet [DIET] Subjective - Subjective Patient Reports: Feeling Better Objective Vital Signs: Vital Signs - 24 hr 03/23/20 03/23/20 03/23/20 16:34 20:27 23:45 Temperature 37.2 C 37.5 C 37.0 C Heart Rate [ 74 80 78 Brachial] Heart Rate [ Monitoring electrodes] Respiratory 18 16 18 Rate Blood Pressure 125/78 115/81 H 128/81 H [Left Brachial artery] O2 Saturation 93 95 93 03/24/20 03/24/20 03/24/20 06:11 07:59 11:00 Temperature 36.6 C 36.7 C 36.6 C Heart Rate [ 68 73 42 L Brachial] Heart Rate [ 79 Monitoring electrodes] Respiratory 18 18 16 Rate Blood Pressure 108/72 123/84 H 132/86 H [Left Brachial artery] O2 Saturation 95 94 97 Oxygen O2 Source Room air I&O (Last 24 Hrs): Intake and Output Totals x24h 03/22/20 03/23/20 03/24/20 23:59 23:59 23:59 Intake Total 400 2506.666 1720 Output Total 0 Balance 400 2506.666 1720 General: Alert, Oriented x3 HEENT: Atraumatic Neck: Supple Lymphatic: no adenopathy Neuro: Alert, Non Focal, Oriented Times 3 Cardiovascular: Regular rate, Normal S1, Normal S2 Respiratory: Chest non-tender, No respiratory distress, Breath sounds nml Abdomen: Normal bowel sounds, Soft, No tenderness Extremities: Normal pulses - Results Results: Laboratory Results WBC 8.0 x10^3/uL (4.8-10.8) 03/24/20 05:14 RBC 3.58 10^6/uL (4.70-6.10) L 03/24/20 05:14 Hgb 12.5 g/dL (14.0-18.0) L 03/24/20 05:14 Hct 37.9 % (42.0-52.0) L 03/24/20 05:14 MCV 105.9 fL (80.0-94.0) H 03/24/20 05:14 MCH 34.9 pg (27.0-31.0) H 03/24/20 05:14 MCHC 33.0 g/dL (32.0-36.0) 03/24/20 05:14 RDW 12.5 % (12.0-15.0) 03/24/20 05:14 Plt Count 371 10^3/uL (130-450) 03/24/20 05:14 MPV 8.9 fL (7.4-11.4) 03/24/20 05:14 Neut # (Auto) 7.2 10^3/uL (1.5-6.6) H 03/24/20 05:14 Lymph # (Auto) 0.7 10^3/uL (1.5-3.5) L 03/24/20 05:14 [place] # (Auto) 0.2 10^3/uL (0.0-1.0) 03/24/20 05:14 Eos # (Auto) 0.0 10^3/uL (0.0-0.7) 03/24/20 05:14 Baso # (Auto) 0.0 10^3/uL (0.0-0.1) 03/24/20 05:14 Absolute Nucleated RBC 0.00 x10^3/uL 03/24/20 05:14 Nucleated RBC % 0.0 /100WBC 03/24/20 05:14 Sodium 136 mmol/L (135-145) 03/24/20 05:14 Potassium 3.8 mmol/L (3.5-5.0) 03/24/20 05:14 Chloride 108 mmol/L (101-111) 03/24/20 05:14 Carbon Dioxide 21 mmol/L (21-32) 03/24/20 05:14 Anion Gap 7.0 (6-13) 03/24/20 05:14 BUN 5 mg/dL (6-20) L 03/24/20 05:14 Creatinine 0.9 mg/dL (0.6-1.2) 03/24/20 05:14 Estimated GFR (MDRD) 85 (>89) L 03/24/20 05:14 Glucose 191 mg/dL (70-100) H 03/24/20 05:14 Calcium 8.3 mg/dL (8.5-10.3) L 03/24/20 05:14 Phosphorus 2.9 mg/dL (2.5-4.6) 03/24/20 05:14 Magnesium 1.4 mg/dL (1.7-2.8) L 03/24/20 05:14 Total Bilirubin 0.5 mg/dL (0.2-1.0) 03/22/20 17:54 AST 56 IU/L (10-42) H 03/22/20 17:54 ALT 28 IU/L (10-60) 03/22/20 17:54 Alkaline Phosphatase 96 IU/L (42-121) 03/22/20 17:54 Total Protein 6.6 g/dL (6.7-8.2) L 03/22/20 17:54 Albumin 3.5 g/dL (3.2-5.5) 03/22/20 17:54 Globulin 3.1 g/dL (2.1-4.2) 03/22/20 17:54 Albumin/Globulin Ratio 1.1 (1.0-2.2) 03/22/20 17:54 Lipase 40 U/L (22-51) 03/22/20 17:54 Ethyl Alcohol < 5.0 mg/dL 03/22/20 17:54 Sepsis Event Note (H) - Evaluation Current Stage of Sepsis: Ruled out ABX Reporting Has patient been on IV antibiotics over the past 48 hours?: Yes Current Medications - Current Medications Current Medications: Active Medications Acetaminophen (Tylenol) 650 mg PO Q4HR PRN PRN Reason: Pain 1 to 4 Carvedilol (Coreg) 12.5 mg PO BID [facility] Last Admin: 03/24/20 09:29 Dose: 12.5 mg Documented by: Diphenhydramine HCl (Benadryl) 25 mg PO Q4HR PRN PRN Reason: Allergy Symptoms Last Admin: 03/23/20 21:31 Dose: 25 mg Documented by: Enoxaparin Sodium (Lovenox) 40 mg SUBQ DAILY [facility] Last Admin: 03/24/20 09:27 Dose: 40 mg Documented by: Gabapentin (Neurontin) 300 mg PO DAILY [facility] Last Admin: 03/24/20 09:19 Dose: 300 mg Documented by: Potassium Chloride/Dextrose/Sod Cl (D5.45ns W/20 Meq Kcl) 1,000 mls @ 100 mls/hr IV .Q10H [facility] Last Admin: 03/24/20 06:22 Dose: 100 mls/hr Documented by: Piperacillin Sod/Tazobactam (Sod 3.375 gm/ Sodium Chloride) 100 mls @ 25 mls/hr IV Q8H [facility] Last Infusion: 03/24/20 11:58 Dose: Infused Documented by: Metronidazole (Flagyl 500 Mg/100 Ml) 500 mg in 100 mls @ 100 mls/hr IV Q8H [facility] Last Infusion: 03/24/20 11:59 Dose: Infused Documented by: Magnesium Oxide (Mag Ox) 400 mg PO DAILYWM [facility] Last Admin: 03/24/20 09:18 Dose: 400 mg Documented by: Methylprednisolone (Solu-Medrol (40mg Vial)) 40 mg IVP BID [facility] Last Admin: 03/24/20 09:29 Dose: 40 mg Documented by: Morphine Sulfate (Morphine (Carpuject)) 2 mg IVP Q2HR PRN PRN Reason: Pain 8 to 10 Last Admin: 03/23/20 20:13 Dose: 2 mg Documented by: Ondansetron HCl (Zofran Inj) 4 mg IVP Q6HR PRN PRN Reason: Nausea / Vomiting Last Admin: 03/23/20 20:11 Dose: 4 mg Documented by: Ondansetron HCl (Zofran Odt) 4 mg TL Q6HR PRN PRN Reason: Nausea / Vomiting Oxycodone HCl (Roxicodone) 5 mg PO Q4HR PRN PRN Reason: Pain 5 to 7 Last Admin: 03/23/20 09:13 Dose: 5 mg Documented by: Saccharomyces Boulardii (Florastor) 500 mg PO BIDWM [facility] Last Admin: 03/24/20 09:26 Dose: 500 mg Documented by: Sodium Chloride (Normal Saline Flush 0.9%) 10 ml IVP PRN PRN PRN Reason: NEEDED PER PROVIDER ORDERS Last Admin: 03/24/20 09:30 Dose: 10 ml Documented by: Sodium Chloride (Normal Saline Flush 0.9%) 10 ml IVP 0100,0900,1700 [facility] Last Admin: 03/24/20 09:30 Dose: Not Given Documented by: Vancomycin HCl (Vancocin) 125 mg PO QID [facility] Last Admin: 03/24/20 09:19 Dose: 125 mg Documented by: Aspirin EC [Ecotrin] 325 mg PO DAILY 03/18/20 Carvedilol 12.5 mg PO BID 03/18/20 Cetirizine [ZyrTEC] 10 mg PO DAILY 03/18/20 Ezetimibe [Zetia] 10 mg PO DAILY 03/18/20 Gabapentin [Neurontin] 300 mg PO DAILY 03/18/20 Omeprazole 20 mg PO DAILY 03/18/20 Rosuvastatin Calcium [Crestor] 5 mg PO DAILY 03/18/20 amLODIPine [Norvasc] 5 mg PO DAILY 03/18/20 Ciprofloxacin HCl [Cipro] 500 mg PO BID 03/23/20 Metronidazole 500 mg PO TID 03/23/20 Saccharomyces Boulardii [Daily Probiotic] 250 mg PO BID 03/23/20 Vancomycin [Vancocin] 125 mg PO QID 03/23/20 Mesalamine 2.4 gm PO BID 03/24/20
[2020-03-24] MEDS ORDERED: GABAPENTIN 300 MG CAPSULE PO SCH (21:00)
[2020-03-25] MEDS: metroNIDAZOLE 500 MG/100 ML 500 MG/100 ML BAG IV SCH ×3 (00:57→16:43)
[2020-03-25] MEDS: SODIUM CHLORIDE FLUSH 0.9% 10 ML SYRINGE IVP SCH ×3 (01:02→16:44)
[2020-03-25] MEDS: diphenhydrAMINE 25 MG CAPSULE PO PRN (01:13)
[2020-03-25 06:00] LABS: BASOPHILS % (AUTO) 0.2 %; EOSINOPHILS % (AUTO) 0.1 %; HGB - HEMOGLOBIN 11.6 g/dL (14.0-18.0); LYMPHOCYTES # (AUTO) 0.9 10^3/uL (1.5-3.5); LYMPHOCYTES % (AUTO) 7.4 %; MEAN CORPUSCULAR HGB CONC 33.5 g/dL (32.0-36.0); MEAN CORPUSCULAR VOLUME 104.5 fL (80.0-94.0); MONOCYTES # (AUTO) 0.7 10^3/uL (0.0-1.0); MONOCYTES % (AUTO) 5.6 %; NEUTROPHILS # (AUTO) 10.6 10^3/uL (1.5-6.6); NEUTROPHILS % (AUTO) 86.1 %; PLT - PLATELET COUNT 353 10^3/uL (130-450); RED BLOOD COUNT 3.31 10^6/uL (4.70-6.10); RED CELL DISTRIBUTION WIDTH 12.4 % (12.0-15.0); WHITE BLOOD COUNT 12.4 x10^3/uL (4.8-10.8)
[2020-03-25 06:06] LABS: CALCIUM 8.1 mg/dL (8.5-10.3); CREATININE 0.6 mg/dL (0.6-1.2); MAGNESIUM 1.6 mg/dL (1.7-2.8); PHOSPHORUS 2.4 mg/dL (2.5-4.6)
[2020-03-25] MEDS: PIPERACILLIN/TAZOBACTAM 3.375 GM in SODIUM CHLORIDE 0.9% MINIBAG 100 ML IV SCH ×3 (06:34→22:14)
[2020-03-25] MEDS ORDERED: POTASSIUM CHLORIDE 20 MEQ TABLET PO ONE (06:49)
[2020-03-25] MEDS ORDERED: NEUTRA-PHOS 250 MG TABLET PO SCH (07:00)
[2020-03-25] MEDS ORDERED: MAGNESIUM SULFATE 2 GRAM 2 GM/50 ML BAG IV ONE (07:42)
[2020-03-25] MEDS: D5.45NS W/20 MEQ KCL 1,000 ML IV SCH ×2 (08:20→22:07)
[2020-03-25] MEDS: SACCHAROMYCES BOULARDII 250 MG CAPSULE PO SCH ×2 (09:14→16:44)
[2020-03-25] MEDS: VANCOMYCIN 125 MG CAPSULE PO SCH ×4 (09:15→22:10)
[2020-03-25] MEDS: FAMOTIDINE 20 MG TABLET PO SCH ×2 (09:15→22:10)
[2020-03-25] MEDS: ASPIRIN EC 325 MG TABLET PO SCH (09:16)
[2020-03-25] MEDS: methylPREDNISolone SUCCINATE 40 MG/ML VIAL IVP SCH ×2 (09:16→22:10)
[2020-03-25] MEDS: carvediloL 12.5 MG TABLET PO SCH ×2 (09:16→22:10)
[2020-03-25] MEDS: ENOXAPARIN 40 MG/0.4 ML SYRINGE SUBQ SCH (09:16)
[2020-03-25] MEDS: GABAPENTIN 300 MG CAPSULE PO SCH (09:17)
[2020-03-25] MEDS: MAGNESIUM OXIDE 400 MG TABLET PO SCH (09:56)
[2020-03-25] MEDS: NEUTRA-PHOS 250 MG TABLET PO SCH ×3 (09:56→16:44)
--- NOTE | 2020-03-25 16:14 | PROVIDER PROGRESS NOTE ---
Assessment/Plan - Problem List (1) Perforation of intestine due to diverticulitis of gastrointestinal tract Assessment/Plan: 03/25 Pt Has elevated WBC, Patient has been failed twice treatment, one is out-pt, another is inpt. We will continue intravenous antibiotics.Social work make appointment schedule for patient on next Sunday to see his GI. 03/24 Patient feels better today, he reported he abdominal pain is good control, He denies fever, nausea vomiting, he report his diarrhea is controlled. He requ est advance his diet. Patient WBC became normal on today. Continue antibiotics Zosyn and Flagyl, Follow-up with your surgeon. Surgeon already saw the patient, recommended no surgery now, watch patient closely, continue antibiotics Zosyn, surgeon recommendation add Flagyl, continue PO vancomycin for C. difficile, start with clear diet, advance as tolerated. (2) C. difficile colitis Patient deny diarrhea any more. Patient has 2 days left for oral vancomycin. (3) Ulcerative colitis Patient has history of ulcerative colitis, patient follows with GI physician Dr. Nicholson. Dr. Maza reveals the case, add steroid to control the inflammation. Patient reported he felt better and abdominal pain control, it seems working for patient. (4) Hypokalemia resolved (5) Hypertension stable, will continue home meds after confirmed by pharmacy - Current Meds Current Meds: Current Medications Generic Name Dose Route Start Last Admin Trade Name Freq PRN Reason Stop Dose Admin Acetaminophen 650 mg 03/22/20 19:31 03/25/20 00:56 Tylenol PO 650 mg Q4HR PRN Administration Pain 1 to 4 Aspirin 325 mg 03/25/20 09:00 03/25/20 09:16 Ecotrin PO 325 mg DAILY ESEQUIEL Administration Carvedilol 12.5 mg 03/24/20 09:00 03/25/20 09:16 Coreg PO 12.5 mg BID ESEQUIEL Administration Diphenhydramine HCl 25 mg 03/23/20 13:35 03/25/20 01:13 Benadryl PO 25 mg Q4HR PRN Administration Allergy Symptoms Enoxaparin Sodium 40 mg 03/23/20 09:00 03/25/20 09:16 Lovenox SUBQ 40 mg DAILY ESEQUIEL Administration Famotidine 20 mg 03/25/20 09:00 03/25/20 09:15 Pepcid PO 20 mg BID ESEQUIEL Administration Gabapentin 300 mg 03/24/20 09:00 03/25/20 09:17 Neurontin PO 300 mg DAILY ESEQUIEL Administration Potassium Chloride/Dextrose/Sod Cl 1,000 mls @ 100 mls/hr 03/22/20 20:00 03/25/20 08:20 D5.45ns W/20 Meq Kcl IV 100 mls/hr .Q10H ESEQUIEL Administration Piperacillin Sod/Tazobactam 100 mls @ 25 mls/hr 03/22/20 23:00 03/25/20 15:41 Sod 3.375 gm/ Sodium Chloride IV 25 mls/hr Q8H ESEQUIEL Administration Metronidazole 500 mg in 100 mls @ 100 mls/hr 03/23/20 09:00 03/25/20 10:47 Flagyl 500 Mg/100 Ml IV Infused Q8H [facility]SEQU[facility] Infusion Magnesium Oxide 400 mg 03/24/20 08:00 03/25/20 09:56 Mag Ox PO Not Given DAILYWM ESEQUIEL Methylprednisolone 40 mg 03/23/20 21:00 03/25/20 09:16 Solu-Medrol (40mg Vial) IVP 40 mg BID ESEQUIEL Administration Morphine Sulfate 2 mg 03/22/20 19:31 03/23/20 20:13 Morphine (Carpuject) IVP 2 mg Q2HR PRN Administration Pain 8 to 10 Ondansetron HCl 4 mg 03/22/20 19:31 03/23/20 20:11 Zofran Inj IVP 4 mg Q6HR PRN Administration Nausea / Vomiting Oxycodone HCl 5 mg 03/22/20 19:31 03/23/20 09:13 Roxicodone PO 5 mg Q4HR PRN Administration Pain 5 to 7 Saccharomyces Boulardii 500 mg 03/23/20 17:00 03/25/20 09:14 Florastor PO 500 mg BIDWM ESEQUIEL Administration Sodium Chloride 10 ml 03/22/20 19:31 03/24/20 09:30 Normal Saline Flush 0.9% IVP 10 ml PRN PRN Administration NEEDED PER PROVIDER ORDERS Sodium Chloride 10 ml 03/23/20 01:00 03/25/20 09:57 Normal Saline Flush 0.9% IVP 10 ml 0100,0900,1700 ESEQUIEL Administration Sodium Phosphate 250 mg 03/25/20 08:00 03/25/20 12:56 K-Phos Neutral PO 250 mg TIDWM ESEQUIEL Administration Vancomycin HCl 125 mg 03/22/20 21:00 03/25/20 12:56 Vancocin PO 125 mg QID ESEQUIEL Administration - Lab Result Fish Bone Diagrams: 03/25/20 05:45 03/25/20 05:45 - Additional Planning My Orders: My Active Orders 03/25/20 08:00 Neutra-Phos [K-Phos Neutral] 250 mg PO TIDWM 03/25/20 09:00 Aspirin EC [Ecotrin] 325 mg PO DAILY Famotidine [Pepcid] 20 mg PO BID Subjective - Subjective Patient Reports: Feeling Better Objective Vital Signs: Vital Signs - 24 hr 03/24/20 03/25/20 03/25/20 20:01 00:00 05:00 Temperature 37 C 36.6 C 36.7 C Heart Rate [ 80 Brachial] Heart Rate [ 69 71 Monitoring electrodes] Respiratory 18 20 18 Rate Blood Pressure 122/76 131/74 H 103/63 [Left Brachial artery] Blood Pressure [Right Brachial artery] O2 Saturation 95 94 97 03/25/20 03/25/20 03/25/20 08:13 09:10 12:00 Temperature 36.7 C 36.8 C Heart Rate [ 59 L 66 Brachial] Heart Rate [ 62 Monitoring electrodes] Respiratory 18 18 Rate Blood Pressure 126/80 [Left Brachial artery] Blood Pressure 124/83 H [Right Brachial artery] O2 Saturation 96 94 Oxygen O2 Source Room air I&O (Last 24 Hrs): Intake and Output Totals x24h 03/23/20 03/24/20 03/25/20 23:59 23:59 23:59 Intake Total 2506.666 3652.000 2200 Output Total 0 300 Balance 2506.666 3352.000 2200 General: Alert, Oriented x3, Cooperative, No acute distress HEENT: Atraumatic Neck: Supple Lymphatic: no adenopathy Neuro: Alert, Non Focal Cardiovascular: Regular rate, Normal S1, Normal S2 Respiratory: Chest non-tender, No respiratory distress Abdomen: Normal bowel sounds, Soft Extremities: Normal pulses - Results Results: Laboratory Results WBC 12.4 x10^3/uL (4.8-10.8) H 03/25/20 05:45 RBC 3.31 10^6/uL (4.70-6.10) L 03/25/20 05:45 Hgb 11.6 g/dL (14.0-18.0) L 03/25/20 05:45 Hct 34.6 % (42.0-52.0) L 03/25/20 05:45 MCV 104.5 fL (80.0-94.0) H 03/25/20 05:45 MCH 35.0 pg (27.0-31.0) H 03/25/20 05:45 MCHC 33.5 g/dL (32.0-36.0) 03/25/20 05:45 RDW 12.4 % (12.0-15.0) 03/25/20 05:45 Plt Count 353 10^3/uL (130-450) 03/25/20 05:45 MPV 9.0 fL (7.4-11.4) 03/25/20 05:45 Neut # (Auto) 10.6 10^3/uL (1.5-6.6) H 03/25/20 05:45 Lymph # (Auto) 0.9 10^3/uL (1.5-3.5) L 03/25/20 05:45 [place] # (Auto) 0.7 10^3/uL (0.0-1.0) 03/25/20 05:45 Eos # (Auto) 0.0 10^3/uL (0.0-0.7) 03/25/20 05:45 Baso # (Auto) 0.0 10^3/uL (0.0-0.1) 03/25/20 05:45 Absolute Nucleated RBC 0.00 x10^3/uL 03/25/20 05:45 Nucleated RBC % 0.0 /100WBC 03/25/20 05:45 Sodium 140 mmol/L (135-145) 03/25/20 05:45 Potassium 3.5 mmol/L (3.5-5.0) 03/25/20 05:45 Chloride 110 mmol/L (101-111) 03/25/20 05:45 Carbon Dioxide 23 mmol/L (21-32) 03/25/20 05:45 Anion Gap 7.0 (6-13) 03/25/20 05:45 BUN 6 mg/dL (6-20) 03/25/20 05:45 Creatinine 0.6 mg/dL (0.6-1.2) 03/25/20 05:45 Estimated GFR (MDRD) 136 (>89) 03/25/20 05:45 Glucose 196 mg/dL (70-100) H 03/25/20 05:45 Calcium 8.1 mg/dL (8.5-10.3) L 03/25/20 05:45 Phosphorus 2.4 mg/dL (2.5-4.6) L 03/25/20 05:45 Magnesium 1.6 mg/dL (1.7-2.8) L 03/25/20 05:45 Total Bilirubin 0.5 mg/dL (0.2-1.0) 03/22/20 17:54 AST 56 IU/L (10-42) H 03/22/20 17:54 ALT 28 IU/L (10-60) 03/22/20 17:54 Alkaline Phosphatase 96 IU/L (42-121) 03/22/20 17:54 Total Protein 6.6 g/dL (6.7-8.2) L 03/22/20 17:54 Albumin 3.5 g/dL (3.2-5.5) 03/22/20 17:54 Globulin 3.1 g/dL (2.1-4.2) 03/22/20 17:54 Albumin/Globulin Ratio 1.1 (1.0-2.2) 03/22/20 17:54 Lipase 40 U/L (22-51) 03/22/20 17:54 Ethyl Alcohol < 5.0 mg/dL 03/22/20 17:54 Sepsis Event Note (H) - Evaluation Current Stage of Sepsis: Ruled out ABX Reporting Has patient been on IV antibiotics over the past 48 hours?: Yes Current Medications - Current Medications Current Medications: Active Medications Acetaminophen (Tylenol) 650 mg PO Q4HR PRN PRN Reason: Pain 1 to 4 Last Admin: 03/25/20 00:56 Dose: 650 mg Documented by: Aspirin (Ecotrin) 325 mg PO DAILY [facility] Last Admin: 03/25/20 09:16 Dose: 325 mg Documented by: Carvedilol (Coreg) 12.5 mg PO BID [facility] Last Admin: 03/25/20 09:16 Dose: 12.5 mg Documented by: Diphenhydramine HCl (Benadryl) 25 mg PO Q4HR PRN PRN Reason: Allergy Symptoms Last Admin: 03/25/20 01:13 Dose: 25 mg Documented by: Enoxaparin Sodium (Lovenox) 40 mg SUBQ DAILY [facility] Last Admin: 03/25/20 09:16 Dose: 40 mg Documented by: Famotidine (Pepcid) 20 mg PO BID [facility] Last Admin: 03/25/20 09:15 Dose: 20 mg Documented by: Gabapentin (Neurontin) 300 mg PO DAILY [facility] Last Admin: 03/25/20 09:17 Dose: 300 mg Documented by: Potassium Chloride/Dextrose/Sod Cl (D5.45ns W/20 Meq Kcl) 1,000 mls @ 100 mls/hr IV .Q10H [facility] Last Admin: 03/25/20 08:20 Dose: 100 mls/hr Documented by: Piperacillin Sod/Tazobactam (Sod 3.375 gm/ Sodium Chloride) 100 mls @ 25 mls/hr IV Q8H [facility] Last Admin: 03/25/20 15:41 Dose: 25 mls/hr Documented by: Metronidazole (Flagyl 500 Mg/100 Ml) 500 mg in 100 mls @ 100 mls/hr IV Q8H [facility] Last Infusion: 03/25/20 10:47 Dose: Infused Documented by: Magnesium Oxide (Mag Ox) 400 mg PO DAILYWM [facility] Last Admin: 03/25/20 09:56 Dose: Not Given Documented by: Methylprednisolone (Solu-Medrol (40mg Vial)) 40 mg IVP BID [facility] Last Admin: 03/25/20 09:16 Dose: 40 mg Documented by: Morphine Sulfate (Morphine (Carpuject)) 2 mg IVP Q2HR PRN PRN Reason: Pain 8 to 10 Last Admin: 03/23/20 20:13 Dose: 2 mg Documented by: Ondansetron HCl (Zofran Inj) 4 mg IVP Q6HR PRN PRN Reason: Nausea / Vomiting Last Admin: 03/23/20 20:11 Dose: 4 mg Documented by: Ondansetron HCl (Zofran Odt) 4 mg TL Q6HR PRN PRN Reason: Nausea / Vomiting Oxycodone HCl (Roxicodone) 5 mg PO Q4HR PRN PRN Reason: Pain 5 to 7 Last Admin: 03/23/20 09:13 Dose: 5 mg Documented by: Saccharomyces Boulardii (Florastor) 500 mg PO BIDWM [facility] Last Admin: 03/25/20 09:14 Dose: 500 mg Documented by: Sodium Chloride (Normal Saline Flush 0.9%) 10 ml IVP PRN PRN PRN Reason: NEEDED PER PROVIDER ORDERS Last Admin: 03/24/20 09:30 Dose: 10 ml Documented by: Sodium Chloride (Normal Saline Flush 0.9%) 10 ml IVP 0100,0900,1700 [facility] Last Admin: 03/25/20 09:57 Dose: 10 ml Documented by: Sodium Phosphate (K-Phos Neutral) 250 mg PO TIDWM [facility] Last Admin: 03/25/20 12:56 Dose: 250 mg Documented by: Vancomycin HCl (Vancocin) 125 mg PO QID [facility] Last Admin: 03/25/20 12:56 Dose: 125 mg Documented by: Aspirin EC [Ecotrin] 325 mg PO DAILY 03/18/20 Carvedilol 12.5 mg PO BID 03/18/20 Cetirizine [ZyrTEC] 10 mg PO DAILY 03/18/20 Ezetimibe [Zetia] 10 mg PO DAILY 03/18/20 Gabapentin [Neurontin] 300 mg PO DAILY 03/18/20 Omeprazole 20 mg PO DAILY 03/18/20 Rosuvastatin Calcium [Crestor] 5 mg PO DAILY 03/18/20 amLODIPine [Norvasc] 5 mg PO DAILY 03/18/20 Ciprofloxacin HCl [Cipro] 500 mg PO BID 03/23/20 Metronidazole 500 mg PO TID 03/23/20 Saccharomyces Boulardii [Daily Probiotic] 250 mg PO BID 03/23/20 Vancomycin [Vancocin] 125 mg PO QID 03/23/20 Mesalamine 2.4 gm PO BID 03/24/20
[2020-03-25] MEDS: oxyCODONE 5 MG TABLET PO PRN (22:09)
[2020-03-26] MEDS: metroNIDAZOLE 500 MG/100 ML 500 MG/100 ML BAG IV SCH ×2 (00:15→09:53)
[2020-03-26] MEDS: SODIUM CHLORIDE FLUSH 0.9% 10 ML SYRINGE IVP SCH ×2 (00:16→09:53)
[2020-03-26] MEDS: D5.45NS W/20 MEQ KCL 1,000 ML IV SCH (04:17)
[2020-03-26 05:46] LABS: BASOPHILS % (AUTO) 0.2 %; HGB - HEMOGLOBIN 11.4 g/dL (14.0-18.0); LYMPHOCYTES # (AUTO) 0.8 10^3/uL (1.5-3.5); LYMPHOCYTES % (AUTO) 7.2 %; MEAN CORPUSCULAR HEMOGLOBIN 35.7 pg (27.0-31.0); MEAN CORPUSCULAR HGB CONC 33.6 g/dL (32.0-36.0); MEAN CORPUSCULAR VOLUME 106.3 fL (80.0-94.0); MEAN PLATELET VOLUME 9.1 fL (7.4-11.4); MONOCYTES # (AUTO) 0.6 10^3/uL (0.0-1.0); MONOCYTES % (AUTO) 5.7 %; NEUTROPHILS # (AUTO) 9.1 10^3/uL (1.5-6.6); NEUTROPHILS % (AUTO) 85.7 %; PLT - PLATELET COUNT 371 10^3/uL (130-450); RED BLOOD COUNT 3.19 10^6/uL (4.70-6.10); RED CELL DISTRIBUTION WIDTH 12.6 % (12.0-15.0); WHITE BLOOD COUNT 10.6 x10^3/uL (4.8-10.8)
[2020-03-26 05:59] LABS: CALCIUM 7.6 mg/dL (8.5-10.3); CREATININE 0.7 mg/dL (0.6-1.2); MAGNESIUM 1.7 mg/dL (1.7-2.8); PHOSPHORUS 2.9 mg/dL (2.5-4.6)
[2020-03-26] MEDS: PIPERACILLIN/TAZOBACTAM 3.375 GM in SODIUM CHLORIDE 0.9% MINIBAG 100 ML IV SCH (06:51)
[2020-03-26] MEDS ORDERED: POTASSIUM CHLORIDE 20 MEQ TABLET PO ONE (08:27)
[2020-03-26] MEDS ORDERED: predniSONE 20 MG TABLET PO SCH (09:00)
[2020-03-26] MEDS: GABAPENTIN 300 MG CAPSULE PO SCH (09:51)
[2020-03-26] MEDS: carvediloL 12.5 MG TABLET PO SCH (09:51)
[2020-03-26] MEDS: FAMOTIDINE 20 MG TABLET PO SCH (09:51)
[2020-03-26] MEDS: VANCOMYCIN 125 MG CAPSULE PO SCH ×2 (09:51→13:21)
[2020-03-26] MEDS: MAGNESIUM OXIDE 400 MG TABLET PO SCH (09:52)
[2020-03-26] MEDS: NEUTRA-PHOS 250 MG TABLET PO SCH ×2 (09:52→13:20)
[2020-03-26] MEDS: ASPIRIN EC 325 MG TABLET PO SCH (09:52)
[2020-03-26] MEDS: SACCHAROMYCES BOULARDII 250 MG CAPSULE PO SCH (09:52)
[2020-03-26] MEDS: ENOXAPARIN 40 MG/0.4 ML SYRINGE SUBQ SCH (09:53)
[2020-03-26 10:59] VITALS: BP 127/85
--- NOTE | 2020-03-26 11:43 | Discharge Plan ---
Discharge Plan Problem Reviewed?: Yes Disposition: Home, Self Care Condition: Stable Prescriptions: oxyCODONE [Roxicodone] 5 mg PO Q4HR PRN #20 tablet PRN Reason: Pain 5 to 7 Amox/Clav 875/125 [Augmentin] 1 each PO Q12H #20 tablet predniSONE [Deltasone] 40 mg PO DAILYWM #10 tablet Diet: Soft Activity Restrictions: Activity as Tolerated Shower Restrictions: No (fall precaution) Instruction Topics: Amoxicillin Clavulanic Acid tablets, Oxycodone tablets or capsules, Prednisone tablets Health Concerns: ulcer colitis and diverticulitis, C.diff infection. Plan of Treatment: your abdominal pain is controlled, and you tolerated regular diet. you are prescribed antibiotics Augmentin, and Prednisone, pain meds as needed. As we discussed, your GI doctor Dr. Garcia will see on 03/29/2020 2:45pm, please followup the appointment. You still have two days vancomycine oral for your C.Diff infection, please followup the schedule. Care Goals: stabilization and improvement of your medical conditions. Assessment: discussed the care plan with you, you understood and agreed. Additional Instructions or Follow Up instructions: you may followup with your PCP in 1-2 weeks, followup with GI on 03/29/2020. Should your symptoms return or worsen, you may present ER or call 911 for help. No Smoking: If you smoke, Please STOP! Call for help. Follow-up with: Terri Olivas MD [Primary Care Provider] -
--- NOTE | 2020-03-26 11:56 | DISCHARGE SUMMARY ---
"Discharge Summary Admit Date: 03/22/20 Discharge Date: 03/26/20 Discharging Provider: Elmer Martinez Primary Care Provider: Condition at Discharge: Stable Discharge Disposition: 01 Home, Self Care Discharge Facility Name: home - DIAGNOSES Discharge Diagnoses with Status of Each Condition: (1) Perforation of intestine due to diverticulitis of gastrointestinal tract pt tolerate regular diet without pain, nausea or vomiting. pt has no fever, chill. WBC is normal. pt was consulted with surgeon. pt had no surgery in hospital. pt is prescribed antibiotics Augmentin to finish the treatment course. (2) C. difficile colitis stable/resolved. Patient has no diarrhea. Patient has 2 days left for oral van comycin. (3) Ulcerative colitis I called , pt's GI doctor. Dr. Garcia agreed to have steroid to control pt's ulcerative colitis. Dr. Maza prescribed steroid for pt in hospital. appointment was made for pt to see on next Sunday afternoon. (4) Hypokalemia replaced (5) Hypertension stable - HPI History of Present Illness: refer from Dr. Heath's HPI on 03/22 This is a 65-year-old male with a past medical history significant for coronary artery disease, ulcerative colitis, hypertension who presents today complaining of worsening abdominal pain. He had just been discharged 2 days ago after being treated for C. difficile colitis and diverticulitis at our facility. He was discharged on oral vancomycin as well as ciprofloxacin and Flagyl. He states he had been doing well yesterday but today he developed worsening lower quadrant abdominal pain. This would radiate to his bilateral flanks and also the tip of his penis. He reports no fevers or chills. He felt nauseous and vomited this morning. Denies any blood in his vomit. Denies any diarrhea or constipation. Also denies any blood in his stool. He also denies dysuria, urgency, hematuria. He reports compliance with his antibiotics on discharge. In the emergency department, he is found to be afebrile in the picture of 36.8 C. His heart rate was 87. Blood pressure was 155/88. He was not tachypneic and was saturating well on room air. Labs were significant for a white count of 14.7. His potassium was also 3.0. CT of the abdomen and pelvis was obtained which showed worsening sigmoid diverticulitis with a contained perforation. No obvious abscess. There is also note of more generalized colitis. Given the above findings, medicine was consulted for admission. He did receive IV Zosyn in the emergency department. I did discuss goals of care with the patient and he would like to be a full code. - CONSULTS | PROCEDURES Consultations: Dr. Maza Procedures: no procedure - HOSPITAL COURSE Hospital Course: pt was admitted for complaining of worsening abdominal pain. pt was found to have worsening sigmoid diverticulitis with perforation in CT of abdomen. pt was consulted with surgeon. No surgery was planned in hospital per surgeon. pt was treated with medical management. after pt had bowel rest, IV of antibiotics, resume home Vancomycin for her C.diff, pt's symptoms were resolved. pt tolerated regular diet without abdominal pain without nausea, vomiting. pt's diarrhea was controlled as well. I called pt's GI doctor Dr. Garcia. Dr. Garcia hope to see pt toya. pt had appointment to see Dr. Garcia on next week Sunday afternoon, thank manager social media's effects. Dr. Garcia agreed to have steroid for pt's colitis which was prescribed by Dr. Maza at hospital. pt was d/c at hemodynamic conditions. - ALLERGIES Allergies/Adverse Reactions: Allergies Allergy/AdvReac Type Severity Reaction Status Date / Time No Known Drug Allergies Allergy Verified 03/22/20 17:36 - MEDICATIONS Home Medications: Ambulatory Orders Medication Instructions Recorded Confirmed Aspirin EC [Ecotrin] 325 mg PO DAILY 03/18/20 03/23/20 Carvedilol 12.5 mg PO BID 03/18/20 03/24/20 Cetirizine [ZyrTEC] 10 mg PO DAILY 03/18/20 03/23/20 Ezetimibe [Zetia] 10 mg PO DAILY 03/18/20 03/23/20 Gabapentin [Neurontin] 300 mg PO DAILY 03/18/20 03/23/20 Omeprazole 20 mg PO DAILY 03/18/20 03/23/20 Rosuvastatin Calcium [Crestor] 5 mg PO DAILY 03/18/20 03/23/20 amLODIPine [Norvasc] 5 mg PO DAILY 03/18/20 03/23/20 Saccharomyces Boulardii [Daily 250 mg PO BID 03/23/20 03/23/20 Probiotic] Vancomycin [Vancocin] 125 mg PO QID 03/23/20 03/23/20 Mesalamine 2.4 gm PO BID 03/24/20 03/24/20 Amox/Clav 875/125 [Augmentin] 1 each PO Q12H #20 tablet 03/26/20 oxyCODONE [Roxicodone] 5 mg PO Q4HR PRN #20 tablet 03/26/20 predniSONE [Deltasone] 40 mg PO DAILYWM #10 tablet 03/26/20 - PHYSICAL EXAM AT DISCHARGE General Appearance: positive: No acute distress, Alert. negative: Lethargic Eyes Bilateral: positive: Normal inspection, PERRL, No lid inflammation ENT: positive: ENT inspection nml, No signs of dehydration. negative: Purulent nasal drainage Neck: positive: Nml inspection, Thyroid nml, Trachea midline. negative: Thyromegaly, Stiff neck, Tracheal deviation Respiratory: positive: Chest non-tender, No respiratory distress, Breath sounds nml. negative: Wheezes, Rales, Rhonchi Cardiovascular: positive: Regular rate & rhythm, No murmur. negative: Irregularly irregular, Tachycardia, Bradycardia, Systolic murmur, Diastolic murmur Peripheral Pulses: positive: 2+ Abdomen: positive: Non-tender, Nml bowel sounds, No distention. negative: Tenderness, Guarding, Rebound Back: positive: Nml inspection. negative: CVA tenderness (R), CVA tenderness (L) Skin: positive: Color nml, No rash, Warm, Dry. negative: Cyanosis, Diaphoresis, Pallor Extremities: positive: Non-tender, Full ROM, Nml appearance. negative: Calf tenderness, Sasha's sign/cords Neurologic/Psychiatric: positive: Oriented x3, Motor nml, Sensation nml, Mood/affect nml. negative: Weakness, Sensory loss, Facial droop, Slurred/abnml speech, Depressed mood/affect - LABS Result Diagrams: 03/26/20 05:27 03/26/20 05:27 - SEPSIS Current Stage of Sepsis: Ruled out - FOLLOW UP Follow Up: your abdominal pain is controlled, and you tolerated regular diet. you are prescribed antibiotics Augmentin, and Prednisone, pain meds as needed. As we discussed, your GI doctor Dr. Garcia will see on 03/29/2020 2:45pm, please followup the appointment. You still have two days vancomycine oral for your C.Diff infection, please followup the schedule. you may followup with your PCP in 1-2 weeks, followup with GI on 03/29/2020. Should your symptoms return or worsen, you may present ER or call 911 for help. - TIME SPENT Time Spent in Discharge (Minutes): 30"
== END 2020-03-26 13:40 | disposition home or self-care (01) | DRG 392 ==
LOC: ED 17:18 → MS3 19:31
PROVIDERS: ADMIT Internal Medicine; ATTEND Internal Medicine
DX: K57.20 Diverticulitis of large intestine with perforation and abscess without bleeding (principal); A04.72 Enterocolitis due to Clostridium difficile, not specified as recurrent; K51.919 Ulcerative colitis, unspecified with unspecified complications; E87.6 Hypokalemia; I10 Essential (primary) hypertension; I25.10 Atherosclerotic heart disease of native coronary artery without angina pectoris; E78.00 Pure hypercholesterolemia, unspecified; N40.0 Benign prostatic hyperplasia without lower urinary tract symptoms; Z79.82 Long term (current) use of aspirin; Z79.899 Other long term (current) drug therapy; Z95.5 Presence of coronary angioplasty implant and graft; I25.2 Old myocardial infarction; Z87.891 Personal history of nicotine dependence; Z82.49 Family history of ischemic heart disease and other diseases of the circulatory system
CPT/HCPCS: 36415; 74177; 80048; 80053; 80320; 83690; 83735; 84100; 85025; 96365; 96375; 99285; A9270; J1170; J1650; J7040; J7512; J8499; Q9967

== ENCOUNTER 2020-04-15 23:35 | Outpatient (CLI) | payer BC | END 2020-04-15 23:59 | disposition home or self-care (01) | LOC: LAB.R 23:35 | PROVIDERS: ATTEND Internal Medicine Gastroenterology | DX: A04.72 Enterocolitis due to Clostridium difficile, not specified as recurrent (principal); K51.90 Ulcerative colitis, unspecified, without complications | CPT/HCPCS: 83993; 87493 ==

== ENCOUNTER 2020-05-24 08:00 | Outpatient (CLI) | payer BC ==
[2020-06-01 08:44] LABS: CK-BB NONE DETECTED; CK-MB 0
[2020-06-01 08:45] LABS: CK-MM 53 (L)
== END 2020-05-24 23:59 | disposition home or self-care (01) ==
LOC: EEVIPCON → LAB.R 08:00
PROVIDERS: ATTEND Internal Medicine Gastroenterology
DX: A04.72 Enterocolitis due to Clostridium difficile, not specified as recurrent (principal); K51.90 Ulcerative colitis, unspecified, without complications; R73.01 Impaired fasting glucose
CPT/HCPCS: 81599; 82550; 82552

== ENCOUNTER 2020-08-30 21:04 | Outpatient (CLI) | payer BC ==
[2020-08-30 21:31] LABS: RHEUMATOID FACTOR NEGATIVE (Negative)
--- NOTE | 2020-08-31 09:22 | XRAY Report ---
PROCEDURE: Cervical Spine 2 View INDICATIONS: NECK PAIN TECHNIQUE: 3 view(s) of the cervical spine were acquired. COMPARISON: None. FINDINGS: Bones: No fractures or dislocations to the C7-T1 level. Trace retrolithesis of C3 on C4, trace ante rolithesis of C5 on C6. Moderate to severe disc space narrowing at C6-7, mild throughout the remaind er of the cervical spine. Minimal anterior osteophytes. Multilevel uncovertebral hypertrophyl The l ateral masses of C1 appear intact on the odontoid view. No suspicious bony lesions. Soft tissues: No prevertebral soft tissue swelling. IMPRESSION: Multilevel degenerative changes as above. Given the uncovertebral hypertrophy, MRI may be obtained if clinically indicated for evaluation of foraminal narrowing. Reviewed by: Roxann Sousa MD on 08/31/2020 8:21 AM [facility] Approved by: Roxann Sousa MD on 08/31/2020 8:21 AM [facility] Station ID: [id number]
--- NOTE | 2020-08-31 09:25 | XRAY Report ---
PROCEDURE: Lumbar Spine 2 View INDICATIONS: LOW BACK PAIN TECHNIQUE: 2 views of the lumbar spine were acquired. COMPARISON: None. FINDINGS: Bones: 5 [id number] vertebrae are present. There is grade 1 retrolisthesis of L1 on L2, trace retrolisthesis of L2 on L3, trace anterolisthesis of L4 on L5. Moderate disc and severe foraminal katy rowing is noted at L5-S1. Moderate to severe foraminal narrowing is also noted L3-4 and L4-5. No vert ebral body compression fractures. No suspicious bony lesions. Soft tissues: Overlying bowel gas pattern is normal. No suspicious soft tissue calcifications. IMPRESSION: Multilevel degenerative changes most severe at L5-S1 as above. As clinically indicated, further evaluation with MRI may be obtained for evaluation of foraminal narrowing and potential nerve root compression. Reviewed by: Roxann Sousa MD on 08/31/2020 8:24 AM [facility] Approved by: Roxann Sousa MD on 08/31/2020 8:24 AM [facility] Station ID: [id number]
--- NOTE | 2020-08-31 13:01 | XRAY Report ---
PROCEDURE: Hip w/Pelvis 2-3V RT INDICATIONS: HIP PAIN, RIGHT TECHNIQUE: AP pelvis with lateral view(s) of the right hip(s). COMPARISON: Lumbosacral spine plain films same day reviewed. Also, prior CT abdomen/pelvis 03/22/2020 . FINDINGS: Bones: No fractures or dislocations. Pelvic ring appears intact. No suspicious bony lesions. Soft tissues: The visualized bowel gas pattern is normal. No suspicious soft tissue calcifications. IMPRESSION: There is a slight degree of joint space narrowing of the hips symmetrically, consistent with mild degenerative osteoarthritis. No trauma found. Reviewed by: Joaquin Walton MD on 08/31/2020 1:00 PM PST Approved by: Joaquin Walton MD on 08/31/2020 1:00 PM PST Station ID: [id number]
[2020-09-02 11:36] LABS: ANA SCREEN NEGATIVE (NEGATIVE)
[2020-09-02 19:37] LABS: CYCLIC CITRULL PEPTIDE CCP IGG <16 UNITS
== END 2020-08-30 21:05 | disposition home or self-care (01) ==
LOC: LAB 21:04 → DI 21:05
PROVIDERS: ATTEND Internal Medicine Rheumatology
DX: M54.2 Cervicalgia (principal); M79.10 Myalgia, unspecified site; M16.0 Bilateral primary osteoarthritis of hip; M47.812 Spondylosis without myelopathy or radiculopathy, cervical region; M47.817 Spondylosis without myelopathy or radiculopathy, lumbosacral region; M48.02 Spinal stenosis, cervical region; M48.07 Spinal stenosis, lumbosacral region
CPT/HCPCS: 36415; 84443; 85651; 86038; 86140; 86200; 86430; 86812

== ENCOUNTER 2020-11-19 07:00 | Outpatient (CLI) | payer BC | END 2020-11-19 23:59 | disposition home or self-care (01) | LOC: LAB.R 07:00 | DX: A04.72 Enterocolitis due to Clostridium difficile, not specified as recurrent (principal) | CPT/HCPCS: 87493 ==

== ENCOUNTER 2021-04-06 03:24 | Outpatient (CLI) | payer BC ==
[2021-04-06 03:48] LABS: BASOPHILS # (AUTO) 0.1 10^3/uL (0.0-0.1); BASOPHILS % (AUTO) 0.8 %; EOSINOPHILS # (AUTO) 0.4 10^3/uL (0.0-0.7); HCT - HEMATOCRIT 38.9 % (42.0-52.0); HGB - HEMOGLOBIN 13.6 g/dL (14.0-18.0); LYMPHOCYTES # (AUTO) 2.6 10^3/uL (1.5-3.5); LYMPHOCYTES % (AUTO) 27.6 %; MEAN CORPUSCULAR HEMOGLOBIN 35.9 pg (27.0-31.0); MEAN CORPUSCULAR VOLUME 102.6 fL (80.0-94.0); MEAN PLATELET VOLUME 9.2 fL (7.4-11.4); MONOCYTES % (AUTO) 10.4 %; NEUTROPHILS # (AUTO) 5.3 10^3/uL (1.5-6.6); PLT - PLATELET COUNT 287 10^3/uL (130-450); RED BLOOD COUNT 3.79 10^6/uL (4.70-6.10); RED CELL DISTRIBUTION WIDTH 12.1 % (12.0-15.0); WHITE BLOOD COUNT 9.3 x10^3/uL (4.8-10.8)
[2021-04-06 04:01] LABS: BUN - BLOOD UREA NITROGEN 16 mg/dL (6-20); CALCIUM 9.2 mg/dL (8.5-10.3); CARBON DIOXIDE - CO2 23 mmol/L (21-32); CHLORIDE 104 mmol/L (101-111); CHOL/HDL RATIO 2.7 (<5.0); CHOLESTEROL 157 mg/dL; CREATININE 0.8 mg/dL (0.6-1.2); GFR - MDRD 97 (>89); GLUCOSE 139 mg/dL (70-100); HDL CHOLESTEROL 59 mg/dL; LDL CHOLESTEROL,CALCULATED 69 mg/dL; LDL/HDL RATIO 1.2 (<3.6); POTASSIUM 3.9 mmol/L (3.5-5.0); SODIUM 137 mmol/L (135-145); TRIGLYCERIDES 146 mg/dL; VLDL CHOLESTEROL 29 mg/dL
== END 2021-04-06 03:25 | disposition home or self-care (01) ==
LOC: LAB 03:24
PROVIDERS: ATTEND Internal Medicine Cardiovascular Disease
DX: I10 Essential (primary) hypertension (principal)
CPT/HCPCS: 36415; 80048; 80061; 83721; 85025

== ENCOUNTER 2021-09-30 03:47 | Outpatient (CLI) | payer BC | END 2021-09-30 03:48 | disposition home or self-care (01) | LOC: LAB 03:47 | PROVIDERS: ATTEND Internal Medicine Gastroenterology | DX: R63.4 Abnormal weight loss (principal); R63.0 Anorexia; A04.72 Enterocolitis due to Clostridium difficile, not specified as recurrent; K51.90 Ulcerative colitis, unspecified, without complications | CPT/HCPCS: 83993; 87493 ==

== ENCOUNTER 2023-01-11 14:43 | Emergency (ER) | payer BC, MEDICARE ==
[2023-01-11 15:01] VITALS: BP 127/80
--- NOTE | 2023-01-11 15:01 | ED Physician Documentation ---
PD HPI UPPER EXT INJURY - Stated complaint Stated Complaint: RT SHOULDER PX - Chief complaint Chief Complaint: Ext Problem - History obtained from History obtained from: Patient - Additonal information Additional information: He was walking on a trail and looking out of the water and tripped on a tree root and fell directly onto the right shoulder. No other injuries. Declines pain medication on initial evaluation. This happened today. PD PAST MEDICAL HISTORY - Past Medical History Cardiovascular: Hypertension, High cholesterol, Coronary artery disease, ID Respiratory: None Neuro: Head injury Endocrine/Autoimmune: None GI: Diverticulitis, Ulcerative colitis : Benign prostate hypertrophy HEENT: None Psych: None Musculoskeletal: None Derm: None - Past Surgical History Past Surgical History: Yes Cardiovascular: Coronary stent - Present Medications Home Medications: Ambulatory Orders Medication Instructions Recorded Confirmed Aspirin EC [Ecotrin] 325 mg PO DAILY 03/18/20 03/23/20 Carvedilol 12.5 mg PO BID 03/18/20 03/24/20 Cetirizine [ZyrTEC] 10 mg PO DAILY 03/18/20 03/23/20 Ezetimibe [Zetia] 10 mg PO DAILY 03/18/20 03/23/20 Gabapentin [Neurontin] 300 mg PO DAILY 03/18/20 03/23/20 Omeprazole 20 mg PO DAILY 03/18/20 03/23/20 Rosuvastatin Calcium [Crestor] 5 mg PO DAILY 03/18/20 03/23/20 amLODIPine [Norvasc] 5 mg PO DAILY 03/18/20 03/23/20 Saccharomyces Boulardii [Daily 250 mg PO BID 03/23/20 03/23/20 Probiotic] Vancomycin [Vancocin] 125 mg PO QID 03/23/20 03/23/20 Mesalamine 2.4 gm PO BID 03/24/20 03/24/20 Amox/Clav 875/125 [Augmentin] 1 each PO Q12H #20 tablet 03/26/20 oxyCODONE [Roxicodone] 5 mg PO Q4HR PRN #20 tablet 03/26/20 predniSONE [Deltasone] 40 mg PO DAILYWM #10 tablet 03/26/20 - Allergies Allergies/Adverse Reactions: Allergies Allergy/AdvReac Type Severity Reaction Status Date / Time No Known Drug Allergies Allergy Verified 01/11/23 14:55 - Social History Does the pt smoke?: No Smoking Status: Never smoker Does the pt drink ETOH?: Yes Does the pt have substance abuse?: No - Immunizations Immunizations are current?: Yes - POLST Patient has POLST: No POLST Status: Full Code PD ED PE NORMAL - Vitals Vital signs reviewed: Yes - General General: Alert and oriented X 3, No acute distress - Extremities Extremities: Other (Focally tender over the right proximal humerus with limited range of motion of the shoulder. The clavicle and scapula are nontender as is the right elbow. Normal neurovascular function in the forearm and hand.) - Neuro Neuro: Alert and oriented X 3, Normal speech Results - Vitals Vitals: Vital Signs - 24 hr 01/11/23 14:53 Temperature 36.2 C L Heart Rate 57 L Respiratory 16 Rate Blood Pressure 127/80 O2 Saturation 96 Oxygen O2 Source Room air - Rads (name of study) X-ray right shoulder is negative Relevant Findings:: Final report received, EMP independent interpretation of test x Relevant Findings:: EMP independent interpretation of test Departure - Departure Disposition: 01 Home, Self Care Clinical Impression: Contusion of right shoulder Qualifiers: Encounter type: initial encounter Qualified Code(s): S40.011A - Contusion of right shoulder, initial encounter Condition: Good Record reviewed to determine appropriate education?: Yes Instructions: ED Contusion Upper Ext Comments: Consider repeat imaging if not improved over the next week. Return for new or worsening symptoms. Tylenol as needed for pain. Discharge Date/Time: 01/11/23 16:46
--- OUTSIDE RECORDS SUMMARY | 2023-01-11 15:18 | EXTERNAL MEDICAL SUMMARY RPT | Continuity of Care Document ---
Author Name Unknown Address [address] [place] [address] Phone Organization [facility] Address [address] [place] [address] Phone Care Team Providers Care Pouncing Lathe Operator Name Role Phone Unavailable Unavailable Unavailable Terri Olivas Unavailable Unavailable Allergies and Intolerances date description facility type (no date) No Known Drug Allergies [facility] ( unknown) Medications date description facility 2022-12-06 00:00 Omeprazole [facility] 2022-12-06 00:00 Carvedilol [facility] 2022-12-06 00:00 Amlodipine [facility] 2022-12-06 00:00 Mesalamine [facility] 2022-12-06 00:00 Rosuvastatin [facility] 2022-12-06 00:00 Losartan [facility] Problems date description facility 2022-12-06 10:53 Ulcerative colitis, unspecified, without complications [facility] 2022-12-06 11:09 Ulcerative colitis, unspecified, without complications [facility] 2022-12-06 12:24 Ulcerative colitis, unspecified, without complications [facility] 2022-12-06 12:37 Ulcerative colitis, unspecified, without complications [facility] 2022-12-06 13:02 Ulcerative colitis, unspecified, without complications [facility] 2022-12-06 13:13 Ulcerative colitis, unspecified, without complications [facility] Procedures date description facility 2022-12-06 00:00 Colonoscopy [facility] 2022-12-06 00:00 Esophagogastroduodenoscopy [facility] Results/Labs test date author facility value unit interpretation Result panel 1 (unknown) (no date) (unknown) (unknown) (no value) (units unknown) 43289-0 (unknown) (no date) (unknown) (unknown) (no value) (units unknown) 22606-7 (unknown) (no date) (unknown) (unknown) (no value) (units unknown) 95039-0 (unknown) (no date) (unknown) (unknown) (no value) (units unknown) 94096-1 (unknown) (no date) (unknown) (unknown) (no value) (units unknown) 89222-1 (unknown) (no date) (unknown) (unknown) (no value) (units unknown) 93052-3 (unknown) (no date) (unknown) (unknown) (no value) (units unknown) 92670-4 (unknown) (no date) (unknown) (unknown) (no value) (units unknown) (unknown) (unknown) (no date) (unknown) (unknown) (no value) (units unknown) (unknown) (unknown) (no date) (unknown) (unknown) (no value) (units unknown) (unknown) (unknown) (no date) (unknown) (unknown) (no value) (units unknown) (unknown) (unknown) (no date) (unknown) (unknown) (no value) (units unknown) (unknown) (unknown) (no date) (unknown) (unknown) (no value) (units unknown) (unknown) (unknown) (no date) (unknown) (unknown) (no value) (units unknown) (unknown) Result panel 2 (unknown) (no date) (unknown) (unknown) (no value) (units unknown) (unknown) (unknown) (no date) (unknown) (unknown) 12/06/22 1123 (units unknown) (unknown) (unknown) (no date) (unknown) (unknown) [id number] (units unknown) (unknown) (unknown) (no date) (unknown) (unknown) ASA Class (for procedural sedation): III (units unknown) (unknown) (unknown) (no date) (unknown) (unknown) Age/Sex: 67 / M (units unknown) (unknown) (unknown) (no date) (unknown) (unknown) COVID-19 status: Negative (units unknown) (unknown) (unknown) (no date) (unknown) (unknown) COVID-19 (units unknown) (unknown) (unknown) (no date) (unknown) (unknown) Changes to H+P: No (units unknown) (unknown) (unknown) (no date) (unknown) (unknown) : 1955 Acct:[id number] (units unknown) (unknown) (unknown) (no date) (unknown) (unknown) Date of Service: 12/06/22 (units unknown) (unknown) (unknown) (no date) (unknown) (unknown) History + Physical reviewed/Exam performed by Physician: Yes (units unknown) (unknown) (unknown) (no date) (unknown) (unknown) Interval Note (units unknown) (unknown) (unknown) (no date) (unknown) (unknown) [address] [address] (units unknown) (unknown) (unknown) (no date) (unknown) (unknown) Patient: Martienz Beasley MR#: [id number] (units unknown) (unknown) (unknown) (no date) (unknown) (unknown) Pre-operative Note (units unknown) (unknown) (unknown) (no date) (unknown) (unknown) Provider: Jasmin Garcia MD (units unknown) (unknown) (unknown) (no date) (unknown) (unknown) Signed By:<Electronically signed by Jasmin Garcia MD> (units unknown) (unknown) Result panel 3 (unknown) (no date) (unknown) (unknown) (no value) (units unknown) (unknown) (unknown) (no date) (unknown) (unknown) 1. (units unknown) (unknown) (unknown) (no date) (unknown) (unknown) [id number] (units unknown) (unknown) (unknown) (no date) (unknown) (unknown) After informed conse nt was obtained the patient was placed in left lateral (units unknown) (unknown) (unknown) (no date) (unknown) (unknown) Age/Sex: 67 / M (units unknown) (unknown) (unknown) (no date) (unknown) (unknown) Blood loss none (units unknown) (unknown) (unknown) (no date) (unknown) (unknown) Complications none (units unknown) (unknown) (unknown) (no date) (unknown) (unknown) : 1955 Acct:[id number] (units unknown) (unknown) (unknown) (no date) (unknown) (unknown) Date of Service: 12/06/22 (units unknown) (unknown) (unknown) (no date) (unknown) (unknown) Date of procedure: 12/06/22 (units unknown) (unknown) (unknown) (no date) (unknown) (unknown) EGD + Colonoscopy Note (units unknown) (unknown) (unknown) (no date) (unknown) (unknown) EGD and colonoscopy (units unknown) (unknown) (unknown) (no date) (unknown) (unknown) EGD (units unknown) (unknown) (unknown) (no date) (unknown) (unknown) Findings (units unknown) (unknown) (unknown) (no date) (unknown) (unknown) Indications: (units unknown) (unknown) (unknown) (no date) (unknown) (unknown) [address] [address] (units unknown) (unknown) (unknown) (no date) (unknown) (unknown) Operative Date/Time/Diagnoses (units unknown) (unknown) (unknown) (no date) (unknown) (unknown) Patient: Martinez Beasley MR#: [id number] (units unknown) (unknown) (unknown) (no date) (unknown) (unknown) Pre-op diagnosis: Se e indication and findings (units unknown) (unknown) (unknown) (no date) (unknown) (unknown) Procedure + Clinicians (units unknown) (unknown) (unknown) (no date) (unknown) (unknown) Procedure Notes (units unknown) (unknown) (unknown) (no date) (unknown) (unknown) Procedure in detail: (units unknown) (unknown) (unknown) (no date) (unknown) (unknown) Provider: Jasmin Garcia MD (units unknown) (unknown) (unknown) (no date) (unknown) (unknown) Sedation mac (units unknown) (unknown) (unknown) (no date) (unknown) (unknown) Signed By: (units unknown) (unknown) (unknown) (no date) (unknown) (unknown) Study performed: (units unknown) (unknown) (unknown) (no date) (unknown) (unknown) Surgeon: Jasmin Garcia (units unknown) (unknown) (unknown) (no date) (unknown) (unknown) The patient was then turned and the colonoscope substituted. The scope was (units unknown) (unknown) (unknown) (no date) (unknown) (unknown) Weight loss and hist ory of ulcerative colitis/proctitis with need for follow-up (units unknown) (unknown) (unknown) (no date) (unknown) (unknown) carefully examined. The scope was removed. The patient tolerated procedure (units unknown) (unknown) (unknown) (no date) (unknown) (unknown) decubitus position. The video upper scope was placed into the oropharynx and (units unknown) (unknown) (unknown) (no date) (unknown) (unknown) duodenum were carefu lly examined. On withdrawal, retroflexed view the GE (units unknown) (unknown) (unknown) (no date) (unknown) (unknown) easily passed the cecum. Preparation was good. On slow withdrawal mucosa was (units unknown) (unknown) (unknown) (no date) (unknown) (unknown) junction was perform ed. The scope was removed. The patient tolerated procedure (units unknown) (unknown) (unknown) (no date) (unknown) (unknown) surveillance (units unknown) (unknown) (unknown) (no date) (unknown) (unknown) well. (units unknown) (unknown) (unknown) (no date) (unknown) (unknown) with the patient's h elp swelled into the esophagus. The esophagus stomach and (units unknown) (unknown) Result panel 4 (unknown) (no date) (unknown) (unknown) (no value) (units unknown) (unknown) (unknown) (no date) (unknown) (unknown) 1. Normal esophagus with completely normal squamocolumnar junction. (units unknown) (unknown) (unknown) (no date) (unknown) (unknown) 1. (units unknown) (unknown) (unknown) (no date) (unknown) (unknown) [id number] (units unknown) (unknown) (unknown) (no date) (unknown) (unknown) 2. Somewhat thickene d folds in the body of the stomach with nodularity to the (units unknown) (unknown) (unknown) (no date) (unknown) (unknown) 3. Striped erythema in the antrum. Biopsies taken and put in same bottle as (units unknown) (unknown) (unknown) (no date) (unknown) (unknown) 4. Normal duodenal b ulb and sweep (units unknown) (unknown) (unknown) (no date) (unknown) (unknown) After informed conse nt was obtained the patient was placed in left lateral (units unknown) (unknown) (unknown) (no date) (unknown) (unknown) Age/Sex: 67 / M (units unknown) (unknown) (unknown) (no date) (unknown) (unknown) Blood loss none (units unknown) (unknown) (unknown) (no date) (unknown) (unknown) Colonoscopy (units unknown) (unknown) (unknown) (no date) (unknown) (unknown) Complications none (units unknown) (unknown) (unknown) (no date) (unknown) (unknown) : 1955 Acct:[id number] (units unknown) (unknown) (unknown) (no date) (unknown) (unknown) Date of Service: 12/06/22 (units unknown) (unknown) (unknown) (no date) (unknown) (unknown) Date of procedure: 12/06/22 (units unknown) (unknown) (unknown) (no date) (unknown) (unknown) EGD + Colonoscopy Note (units unknown) (unknown) (unknown) (no date) (unknown) (unknown) EGD and colonoscopy (units unknown) (unknown) (unknown) (no date) (unknown) (unknown) EGD (units unknown) (unknown) (unknown) (no date) (unknown) (unknown) Findings (units unknown) (unknown) (unknown) (no date) (unknown) (unknown) Indications: (units unknown) (unknown) (unknown) (no date) (unknown) (unknown) [address] [address] (units unknown) (unknown) (unknown) (no date) (unknown) (unknown) Operative Date/Time/Diagnoses (units unknown) (unknown) (unknown) (no date) (unknown) (unknown) Patient: Martinez Beasley MR#: [id number] (units unknown) (unknown) (unknown) (no date) (unknown) (unknown) Pre-op diagnosis: Se e indication and findings (units unknown) (unknown) (unknown) (no date) (unknown) (unknown) Procedure + Clinicians (units unknown) (unknown) (unknown) (no date) (unknown) (unknown) Procedure Notes (units unknown) (unknown) (unknown) (no date) (unknown) (unknown) Procedure in detail: (units unknown) (unknown) (unknown) (no date) (unknown) (unknown) Provider: Jasmin Garcia MD (units unknown) (unknown) (unknown) (no date) (unknown) (unknown) Sedation mac (units unknown) (unknown) (unknown) (no date) (unknown) (unknown) Signed By: (units unknown) (unknown) (unknown) (no date) (unknown) (unknown) Study performed: (units unknown) (unknown) (unknown) (no date) (unknown) (unknown) Surgeon: Jasmin Garcia (units unknown) (unknown) (unknown) (no date) (unknown) (unknown) The patient was then turned and the colonoscope substituted. The scope was (units unknown) (unknown) (unknown) (no date) (unknown) (unknown) Weight loss and hist ory of ulcerative colitis/proctitis with need for follow-up (units unknown) (unknown) (unknown) (no date) (unknown) (unknown) above (units unknown) (unknown) (unknown) (no date) (unknown) (unknown) carefully examined. The scope was removed. The patient tolerated procedure (units unknown) (unknown) (unknown) (no date) (unknown) (unknown) decubitus position. The video upper scope was placed into the oropharynx and (units unknown) (unknown) (unknown) (no date) (unknown) (unknown) duodenum were carefu lly examined. On withdrawal, retroflexed view the GE (units unknown) (unknown) (unknown) (no date) (unknown) (unknown) easily passed the cecum. Preparation was good. On slow withdrawal mucosa was (units unknown) (unknown) (unknown) (no date) (unknown) (unknown) junction was perform ed. The scope was removed. The patient tolerated procedure (units unknown) (unknown) (unknown) (no date) (unknown) (unknown) mucosa between the folds. Biopsies taken (units unknown) (unknown) (unknown) (no date) (unknown) (unknown) surveillance (units unknown) (unknown) (unknown) (no date) (unknown) (unknown) well. (units unknown) (unknown) (unknown) (no date) (unknown) (unknown) with the patient's h elp swelled into the esophagus. The esophagus stomach and (units unknown) (unknown) Result panel 5 (unknown) (no date) (unknown) (unknown) (no value) (units unknown) (unknown) (unknown) (no date) (unknown) (unknown) * This test was developed and its performance characteristics determined (units unknown) (unknown) (unknown) (no date) (unknown) (unknown) * (units unknown) (unknown) (unknown) (no date) (unknown) (unknown) Performed at: 01 (units unknown) (unknown) (unknown) (no date) (unknown) (unknown) . 01 (units unknown) (unknown) (unknown) (no date) (unknown) (unknown) . (units unknown) (unknown) (unknown) (no date) (unknown) (unknown) /KAVITA 12/08/2022 1859 Local (units unknown) (unknown) (unknown) (no date) (unknown) (unknown) 0.1 x 0.1 x 0.1 cm t o 0.3 x 0.2 x 0.2 cm submitted entirely in 1 (units unknown) (unknown) (unknown) (no date) (unknown) (unknown) 0.1 x 0.1 x 0.1 cm t o 0.5 x 0.3 x 0.2 cm submitted entirely in 1 (units unknown) (unknown) (unknown) (no date) (unknown) (unknown) 0.2 x 0.2 x 0.2 cm t o 0.3 x 0.2 x 0.2 cm submitted entirely in 1 (units unknown) (unknown) (unknown) (no date) (unknown) (unknown) 0.2 x 0.2 x 0.2 cm t o 0.3 x 0.3 x 0.3 cm submitted entirely in 1 (units unknown) (unknown) (unknown) (no date) (unknown) (unknown) 0.3 x 0.3 x 0.3 cm submitted entirely in 1 cassette(s) (units unknown) (unknown) (unknown) (no date) (unknown) (unknown) [address] [place] [address] (units unknown) (unknown) (unknown) (no date) (unknown) (unknown) [address] [id number] (units unknown) (unknown) (unknown) (no date) (unknown) (unknown) [id number], [id number], 8830 53, [id number], [id number], [id number], [id number] (units unknown) (unknown) (unknown) (no date) (unknown) (unknown) A. An immunohistochemical stain was performed to evaluate for Helicobacter (units unknown) (unknown) (unknown) (no date) (unknown) (unknown) A. Stomach, Biopsy: (units unknown) (unknown) (unknown) (no date) (unknown) (unknown) Administration. The FDA has determined that such clearance or approval is (units unknown) (unknown) (unknown) (no date) (unknown) (unknown) [place] [address] (units unknown) (unknown) (unknown) (no date) (unknown) (unknown) B. Cecal Polyp, Biopsy: (units unknown) (unknown) (unknown) (no date) (unknown) (unknown) C. Right Colon Polyp , Biopsy: (units unknown) (unknown) (unknown) (no date) (unknown) (unknown) CPT . (units unknown) (unknown) (unknown) (no date) (unknown) (unknown) Collection Date: 12/06/22 (units unknown) (unknown) (unknown) (no date) (unknown) (unknown) Colonic mucosa with no diagnostic abnormality, consistent with (units unknown) (unknown) (unknown) (no date) (unknown) (unknown) Colonic mucosa with no significant diagnostic abnormality. (units unknown) (unknown) (unknown) (no date) (unknown) (unknown) D. Right Colon, Biopsies: (units unknown) (unknown) (unknown) (no date) (unknown) (unknown) DD/ 0000 (units unknown) (unknown) (unknown) (no date) (unknown) (unknown) Date of : 1955 Admit Date: 12/06/22 (units unknown) (unknown) (unknown) (no date) (unknown) (unknown) Diagnosis: (units unknown) (unknown) (unknown) (no date) (unknown) (unknown) Dictated By: Nelida Gatica MD (units unknown) (unknown) (unknown) (no date) (unknown) (unknown) E. Transverse Colon, Biopsy: (units unknown) (unknown) (unknown) (no date) (unknown) (unknown) Electronically rohit d: . (units unknown) (unknown) (unknown) (no date) (unknown) (unknown) F. Left Colon, Biopsy: (units unknown) (unknown) (unknown) (no date) (unknown) (unknown) Gastric mucosa with mild chronic inflammation. (units unknown) (unknown) (unknown) (no date) (unknown) (unknown) Gross description: . (units unknown) (unknown) (unknown) (no date) (unknown) (unknown) [facility] (units unknown) (unknown) (unknown) (no date) (unknown) (unknown) K29.70, D12.0, K51.90 (units unknown) (unknown) (unknown) (no date) (unknown) (unknown) [facility] Accession Number : [id number] (units unknown) (unknown) (unknown) (no date) (unknown) (unknown) [facility] (units unknown) (unknown) (unknown) (no date) (unknown) (unknown) MD Mauro Mendosa MD Phone: [phone] (units unknown) (unknown) (unknown) (no date) (unknown) (unknown) Dictating Dr: Nelida Gatica MD (units unknown) (unknown) (unknown) (no date) (unknown) (unknown) MRV 12/12/2022 1224 Local (units unknown) (unknown) (unknown) (no date) (unknown) (unknown) Material submitted: . (units unknown) (unknown) (unknown) (no date) (unknown) (unknown) Microscopic: . (units unknown) (unknown) (unknown) (no date) (unknown) (unknown) NPI- [id number] (units unknown) (unknown) (unknown) (no date) (unknown) (unknown) Negative for active inflammation, granulomas, dysplasia, and (units unknown) (unknown) (unknown) (no date) (unknown) (unknown) Negative for dysplas ia and malignancy. (units unknown) (unknown) (unknown) (no date) (unknown) (unknown) No Helicobacter pylo ri organisms identified on immunohistochemical (units unknown) (unknown) (unknown) (no date) (unknown) (unknown) No intestinal metaplasia, dysplasia, or malignancy identified. (units unknown) (unknown) (unknown) (no date) (unknown) (unknown) No. of containers..0 6 Tissue (units unknown) (unknown) (unknown) (no date) (unknown) (unknown) Ordering Physician: Jasmin Garcia MD (units unknown) (unknown) (unknown) (no date) (unknown) (unknown) PART A: stomach - STOMACH BIOPSY (units unknown) (unknown) (unknown) (no date) (unknown) (unknown) PART B: cecum - CECU M POLYP (units unknown) (unknown) (unknown) (no date) (unknown) (unknown) PART C: colon - RIGH T COLON POLYP (units unknown) (unknown) (unknown) (no date) (unknown) (unknown) PART D: colon - RIGH T COLON BIOPSIES (units unknown) (unknown) (unknown) (no date) (unknown) (unknown) PART E: colon - TRANSVERSE COLON BIOPSIES (units unknown) (unknown) (unknown) (no date) (unknown) (unknown) PART F: colon - LEFT COLON BIOPSIES (units unknown) (unknown) (unknown) (no date) (unknown) (unknown) Part A: STOMACH BIOPSY: (units unknown) (unknown) (unknown) (no date) (unknown) (unknown) Part B: CECUM POLYP: (units unknown) (unknown) (unknown) (no date) (unknown) (unknown) Part C: RIGHT COLON POLYP: (units unknown) (unknown) (unknown) (no date) (unknown) (unknown) Part D: RIGHT COLON BIOPSIES: (units unknown) (unknown) (unknown) (no date) (unknown) (unknown) Part E: TRANSVERSE COLON BIOPSIES: (units unknown) (unknown) (unknown) (no date) (unknown) (unknown) Part F: LEFT COLON BIOPSIES: (units unknown) (unknown) (unknown) (no date) (unknown) (unknown) Pathologist provided ICD-10: (units unknown) (unknown) (unknown) (no date) (unknown) (unknown) Pathology Diagnostic Report (units unknown) (unknown) (unknown) (no date) (unknown) (unknown) Patient name: Chin Beasley (units unknown) (unknown) (unknown) (no date) (unknown) (unknown) Received in formalin are 2 fragment(s) of posadas, soft tissue measuring (units unknown) (unknown) (unknown) (no date) (unknown) (unknown) Received in formalin are 3 fragment(s) of posadas, soft tissue measuring (units unknown) (unknown) (unknown) (no date) (unknown) (unknown) Received in formalin are 4 fragment(s) of posadas, soft tissue measuring (units unknown) (unknown) (unknown) (no date) (unknown) (unknown) Received in formalin are multiple fragment(s) of posadas, soft tissue (units unknown) (unknown) (unknown) (no date) (unknown) (unknown) Received in formalin is 1 fragment(s) of posadas, soft tissue measuring (units unknown) (unknown) (unknown) (no date) (unknown) (unknown) Nelida Gatica MD, Pathologist (units unknown) (unknown) (unknown) (no date) (unknown) (unknown) Signed By: 12/13/22 1807 (units unknown) (unknown) (unknown) (no date) (unknown) (unknown) Signed (units unknown) (unknown) (unknown) (no date) (unknown) (unknown) Specimen Comment: A courtesy copy of this report has been sent to [phone] (units unknown) (unknown) (unknown) (no date) (unknown) (unknown) TD/TT: 12/13/22 1807 (units unknown) (unknown) (unknown) (no date) (unknown) (unknown) Tubular adenoma. (units unknown) (unknown) (unknown) (no date) (unknown) (unknown) by [employer]. It has n ot been cleared or approved by the U.S. Food and Drug (units unknown) (unknown) (unknown) (no date) (unknown) (unknown) cassette(s) (units unknown) (unknown) (unknown) (no date) (unknown) (unknown) evaluation. (units unknown) (unknown) (unknown) (no date) (unknown) (unknown) in 1 cassette(s) (units unknown) (unknown) (unknown) (no date) (unknown) (unknown) malignancy. (units unknown) (unknown) (unknown) (no date) (unknown) (unknown) measuring 0.1 x 0.1 x 0.1 cm to 0.3 x 0.3 x 0.3 cm submitted entirely (units unknown) (unknown) (unknown) (no date) (unknown) (unknown) not necessary. This test is used for clinical purposes. It should not be (units unknown) (unknown) (unknown) (no date) (unknown) (unknown) organisms and is negative. The control stain showed appropriate reactivity. (units unknown) (unknown) (unknown) (no date) (unknown) (unknown) polypoid redundancy. (units unknown) (unknown) (unknown) (no date) (unknown) (unknown) regarded as investigational or for research. (units unknown) (unknown) Result panel 6 (unknown) (no date) (unknown) (unknown) (no value) (units unknown) (unknown) (unknown) (no date) (unknown) (unknown) 12/06/22 1206 (units unknown) (unknown) (unknown) (no date) (unknown) (unknown) 1. Mucosa it general ly normal. Biopsies taken to every 10 cm in the right (units unknown) (unknown) (unknown) (no date) (unknown) (unknown) 1. Normal esophagus with completely normal squamocolumnar junction. (units unknown) (unknown) (unknown) (no date) (unknown) (unknown) 727030 (units unknown) (unknown) (unknown) (no date) (unknown) (unknown) [address] i n. We will be in touch regarding his biopsies. (units unknown) (unknown) (unknown) (no date) (unknown) (unknown) 2. 8 mm polyp in the cecum Jumbo biopsy x2 and removed (units unknown) (unknown) (unknown) (no date) (unknown) (unknown) 2. Somewhat thickene d folds in the body of the stomach with nodularity to the (units unknown) (unknown) (unknown) (no date) (unknown) (unknown) 3. 3 mm polyp in the right colon Jumbo biopsied and removed. (units unknown) (unknown) (unknown) (no date) (unknown) (unknown) 3. Striped erythema in the antrum. Biopsies taken and put in same bottle as (units unknown) (unknown) (unknown) (no date) (unknown) (unknown) 4. Normal duodenal b ulb and sweep (units unknown) (unknown) (unknown) (no date) (unknown) (unknown) After informed conse nt was obtained the patient was placed in left lateral (units unknown) (unknown) (unknown) (no date) (unknown) (unknown) Age/Sex: 67 / M (units unknown) (unknown) (unknown) (no date) (unknown) (unknown) Blood loss none (units unknown) (unknown) (unknown) (no date) (unknown) (unknown) Colonoscopy (units unknown) (unknown) (unknown) (no date) (unknown) (unknown) Complications none (units unknown) (unknown) (unknown) (no date) (unknown) (unknown) : 1955 Acct:[id number] (units unknown) (unknown) (unknown) (no date) (unknown) (unknown) Date of Service: 12/06/22 (units unknown) (unknown) (unknown) (no date) (unknown) (unknown) Date of procedure: 12/06/22 (units unknown) (unknown) (unknown) (no date) (unknown) (unknown) EGD + Colonoscopy Note (units unknown) (unknown) (unknown) (no date) (unknown) (unknown) EGD and colonoscopy (units unknown) (unknown) (unknown) (no date) (unknown) (unknown) EGD (units unknown) (unknown) (unknown) (no date) (unknown) (unknown) Findings (units unknown) (unknown) (unknown) (no date) (unknown) (unknown) Indications: (units unknown) (unknown) (unknown) (no date) (unknown) (unknown) [address] [address] [id number] (units unknown) (unknown) (unknown) (no date) (unknown) (unknown) Operative Date/Time/Diagnoses (units unknown) (unknown) (unknown) (no date) (unknown) (unknown) Patient: Martinez Beasley MR#: [id number] (units unknown) (unknown) (unknown) (no date) (unknown) (unknown) Pre-op diagnosis: Se e indication and findings (units unknown) (unknown) (unknown) (no date) (unknown) (unknown) Procedure + Clinicians (units unknown) (unknown) (unknown) (no date) (unknown) (unknown) Procedure Notes (units unknown) (unknown) (unknown) (no date) (unknown) (unknown) Procedure in detail: (units unknown) (unknown) (unknown) (no date) (unknown) (unknown) Provider: Jasmin Garcia MD (units unknown) (unknown) (unknown) (no date) (unknown) (unknown) Sedation mac (units unknown) (unknown) (unknown) (no date) (unknown) (unknown) Signed By:<Electronically signed by Jasmin Garcia MD> (units unknown) (unknown) (unknown) (no date) (unknown) (unknown) Study performed: (units unknown) (unknown) (unknown) (no date) (unknown) (unknown) Surgeon: Jasmin Garcia (units unknown) (unknown) (unknown) (no date) (unknown) (unknown) The patient was then turned and the colonoscope substituted. The scope was (units unknown) (unknown) (unknown) (no date) (unknown) (unknown) There is no obvious reason on these exams for César's lack of appetite. 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 The scope was removed. The patient tolerated procedure (units unknown) (unknown) (unknown) (no date) (unknown) (unknown) colon, transverse colon, and left colon. (units unknown) (unknown) (unknown) (no date) (unknown) (unknown) decubitus position. The video upper scope was placed into the oropharynx and (units unknown) (unknown) (unknown) (no date) (unknown) (unknown) duodenum were carefu lly examined. On withdrawal, retroflexed view the GE (units unknown) (unknown) (unknown) (no date) (unknown) (unknown) easily passed the cecum. Preparation was good. On slow withdrawal mucosa was (units unknown) (unknown) (unknown) (no date) (unknown) (unknown) eat as much as he ca n of high-calorie foods and make an appointment to see me in (units unknown) (unknown) (unknown) (no date) (unknown) (unknown) junction was perform ed. The scope was removed. The patient tolerated procedure (units unknown) (unknown) (unknown) (no date) (unknown) (unknown) mucosa between the folds. Biopsies taken (units unknown) (unknown) (unknown) (no date) (unknown) (unknown) somewhat stabilized though he is not actively gaining. I would encourage him to (units unknown) (unknown) (unknown) (no date) (unknown) (unknown) surveillance (units unknown) (unknown) (unknown) (no date) (unknown) (unknown) well. (units unknown) (unknown) (unknown) (no date) (unknown) (unknown) with the patient's h elp swelled into the esophagus. The esophagus stomach and (units unknown) (unknown) Social History date description facility 2022-12-06 00:00 Current some day [facility] Vital Signs date measurement value units 2022-12-06 00:00 BMI 22.9 kg/m2 2022-12-06 00:00 BP_diastolic 91 mmHg 2022-12-06 00:00 BP_systolic 145 mmHg 2022-12-06 00:00 heart_rate 57 /min 2022-12-06 00:00 height_metric 177.8 cm 2022-12-06 00:00 height_standard 70 in 2022-12-06 00:00 o2_saturation 98 % 2022-12-06 00:00 respiration_rate 18 /min 2022-12-06 00:00 temperature_metric 36.11 C 2022-12-06 00:00 temperature_standard 97 F 2022-12-06 00:00 weight_metric 72.57 kg 2022-12-06 00:00 weight_standard 159.99 lb
--- NOTE | 2023-01-11 15:45 | XRAY Report ---
PROCEDURE: Shoulder 3 View RT INDICATIONS: SHOULDER INJ TECHNIQUE: 3 views of the shoulder were acquired. COMPARISON: None. FINDINGS: Bones: No fractures or dislocations. No suspicious bony lesions. Visualized ribs appear intact. 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 Soft tissues: No suspicious soft tissue calcifications. IMPRESSION: No fracture. No acute osseous lesion. If symptoms and/or clinical concern for pathology persists, further assessment with repeat plain film radiographs (7-10 days) or advanced imaging (CT, MR, bone scan) should be considered. Reviewed by: Nancy Cooper MD, PhD on 01/11/2023 3:44 PM PDT Approved by: Nancy Cooper MD, PhD on 01/11/2023 3:44 PM PDT Station ID: [id number]
== END 2023-01-11 16:46 | disposition home or self-care (01) ==
LOC: ED 14:43
DX: S40.011A Contusion of right shoulder, initial encounter (principal); W01.0XXA Fall on same level from slipping, tripping and stumbling without subsequent striking against object, initial encounter; Y93.K1 Activity, walking an animal; Y92.830 Public park as the place of occurrence of the external cause
CPT/HCPCS: 99283

== ENCOUNTER 2023-08-15 07:40 | Outpatient (CLI) | payer MEDICARE, BC ==
[2023-08-15 14:33] LABS: BASOPHILS # (AUTO) 0.1 10^3/uL (0.0-0.1); BASOPHILS % (AUTO) 0.8 %; EOSINOPHILS # (AUTO) 0.3 10^3/uL (0.0-0.7); EOSINOPHILS % (AUTO) 3.8 %; HCT - HEMATOCRIT 40.1 % (42.0-52.0); HGB - HEMOGLOBIN 13.3 g/dL (14.0-18.0); LYMPHOCYTES # (AUTO) 1.7 10^3/uL (1.5-3.5); MEAN CORPUSCULAR HEMOGLOBIN 34.6 pg (27.0-31.0); MEAN CORPUSCULAR HGB CONC 33.2 g/dL (32.0-36.0); MEAN CORPUSCULAR VOLUME 104.4 fL (80.0-94.0); MEAN PLATELET VOLUME 10.1 fL (7.4-11.4); MONOCYTES # (AUTO) 0.8 10^3/uL (0.0-1.0); MONOCYTES % (AUTO) 12.4 %; NEUTROPHILS # (AUTO) 3.8 10^3/uL (1.5-6.6); NEUTROPHILS % (AUTO) 57.8 %; PLT - PLATELET COUNT 245 10^3/uL (130-450); RED BLOOD COUNT 3.84 10^6/uL (4.70-6.10); RED CELL DISTRIBUTION WIDTH 12.6 % (12.0-15.0); WHITE BLOOD COUNT 6.6 x10^3/uL (4.8-10.8)
[2023-08-15 15:55] LABS: BUN - BLOOD UREA NITROGEN 18 mg/dL (6-20); CARBON DIOXIDE - CO2 25 mmol/L (21-32); CHLORIDE 107 mmol/L (101-111); CHOL/HDL RATIO 1.9 (<5.0); CHOLESTEROL 110 mg/dL; CREATININE 0.7 mg/dL (0.6-1.3); GFR - MDRD 113 (>89); GLUCOSE 91 mg/dL (74-104); HDL CHOLESTEROL 59 mg/dL; LDL CHOLESTEROL,CALCULATED 40 mg/dL; LDL/HDL RATIO 0.7 (<3.6); SODIUM 138 mmol/L (135-145); TRIGLYCERIDES 56 mg/dL (48-352); VLDL CHOLESTEROL 11 mg/dL
== END 2023-08-15 07:41 | disposition home or self-care (01) ==
LOC: LAB.S 07:40
PROVIDERS: ATTEND Internal Medicine Cardiovascular Disease
DX: E78.5 Hyperlipidemia, unspecified (principal); I10 Essential (primary) hypertension
CPT/HCPCS: 36415; 80048; 80061; 83721; 85025

== ENCOUNTER 2023-12-18 09:52 | Outpatient (CLI) | payer MEDICARE, BC ==
[2023-12-18 10:18] LABS: BASOPHILS # (AUTO) 0.1 10^3/uL (0.0-0.1); BASOPHILS % (AUTO) 0.9 %; EOSINOPHILS # (AUTO) 0.3 10^3/uL (0.0-0.7); EOSINOPHILS % (AUTO) 3.1 %; HCT - HEMATOCRIT 42.1 % (42.0-52.0); HGB - HEMOGLOBIN 14.6 g/dL (14.0-18.0); LYMPHOCYTES # (AUTO) 2.1 10^3/uL (1.5-3.5); LYMPHOCYTES % (AUTO) 26.1 %; MEAN CORPUSCULAR HEMOGLOBIN 35.5 pg (27.0-31.0); MEAN CORPUSCULAR HGB CONC 34.7 g/dL (32.0-36.0); MEAN CORPUSCULAR VOLUME 102.4 fL (80.0-94.0); MEAN PLATELET VOLUME 9.5 fL (7.4-11.4); MONOCYTES # (AUTO) 0.9 10^3/uL (0.0-1.0); MONOCYTES % (AUTO) 11.4 %; NEUTROPHILS # (AUTO) 4.7 10^3/uL (1.5-6.6); NEUTROPHILS % (AUTO) 58.4 %; PLT - PLATELET COUNT 237 10^3/uL (130-450); RED BLOOD COUNT 4.11 10^6/uL (4.70-6.10); RED CELL DISTRIBUTION WIDTH 12.7 % (12.0-15.0)
[2023-12-18 10:19] LABS: BILIRUBIN,URINE NEGATIVE (NEGATIVE); GLUCOSE, URINE (UA) NEGATIVE (NEGATIVE); KETONES,URINE (UA) NEGATIVE (NEGATIVE); LEUKOCYTE ESTERASE, URINE NEGATIVE (NEGATIVE); NITRITE,URINE NEGATIVE (NEGATIVE); OCCULT BLOOD,URINE NEGATIVE (NEGATIVE); PH,URINE 6.5 PH (5.0-7.5); PROTEIN,URINE NEGATIVE (NEGATIVE); UROBILINOGEN,URINE 0.2 (NORMAL) E.U./dL (NORMAL)
[2023-12-18 10:20] LABS: CLARITY,URINE CLEAR (CLEAR)
[2023-12-18 10:32] LABS: ALBUMIN 4.6 g/dL (3.2-5.5); ALBUMIN/GLOBULIN RATIO 1.6 (1.0-2.2); ALKALINE PHOSPHATASE 67 IU/L (42-121); ALT ALANINE AMINOTRANSFERASE 12 IU/L (10-60); AST ASPARTATE AMINOTRANSFERASE 15 IU/L (10-42); BILIRUBIN,TOTAL 0.7 mg/dL (0.2-1.0); BUN - BLOOD UREA NITROGEN 18 mg/dL (6-20); CALCIUM 9.3 mg/dL (8.5-10.3); CARBON DIOXIDE - CO2 26 mmol/L (21-32); CHLORIDE 105 mmol/L (101-111); CHOL/HDL RATIO 2.3 (<5.0); CHOLESTEROL 148 mg/dL; CREATININE 0.8 mg/dL (0.6-1.3); GFR - MDRD 97 (>89); GLUCOSE 105 mg/dL (74-104); HDL CHOLESTEROL 63 mg/dL; LDL CHOLESTEROL,CALCULATED 69 mg/dL; LDL/HDL RATIO 1.1 (<3.6); POTASSIUM 4.1 mmol/L (3.5-4.5); SODIUM 136 mmol/L (135-145); TOTAL PROTEIN 7.5 g/dL (6.4-8.9); TRIGLYCERIDES 80 mg/dL (48-352); VLDL CHOLESTEROL 16 mg/dL
[2023-12-18 10:52] LABS: THYROID STIMULATING HORMONE 1.19 uIU/mL (0.34-5.60)
== END 2023-12-18 09:53 | disposition home or self-care (01) ==
LOC: LAB 09:52
PROVIDERS: ATTEND Internal Medicine
DX: E55.9 Vitamin D deficiency, unspecified (principal); R00.1 Bradycardia, unspecified; I25.10 Atherosclerotic heart disease of native coronary artery without angina pectoris; E78.5 Hyperlipidemia, unspecified; I10 Essential (primary) hypertension; R73.01 Impaired fasting glucose; Z79.899 Other long term (current) drug therapy; E04.1 Nontoxic single thyroid nodule; K51.80 Other ulcerative colitis without complications; Z12.5 Encounter for screening for malignant neoplasm of prostate
CPT/HCPCS: 36415; 80053; 80061; 81003; 82306; 84443; 85025; G0103; 83721; 84153